=== PATIENT | male | born 1955 | race Caucasian/White ===

== ENCOUNTER 2017-01-31 16:20 | Inpatient (IN) | payer MEDICARE, BC ==
[~2017-01-31] VITALS: Ht 175.3 cm; Wt 86.4 kg
--- NOTE | ~2017-01-31 | EC ---
PATIENT:GABE LOWE DATE OF SERVICE: 02/03/17 SEX: M MEDICAL RECORD: [id number] DATE OF : [birth year] LOCATION:[facility] AGE OF PATIENT: 61 ADMISSION DATE: 01/31/17 REFERRING PHYSICIAN: INTERPRETING PHYSICIAN: AHSAN FREEMAN MD ECHOCARDIOGRAM REPORT ECHO CHARGES 4 ECHO COMPLETE CLINICAL DIAGNOSIS: PTE ECHOCARDIOGRAPHIC MEASUREMENTS (adult normal given) AC root (d.<3.7cm) 2.6 LV Septum d (<1.2 cm> 1.2 Valve Excursion 1.6 LV Septum (systole) 1.5 Left Atria (s.<4.0cm> 3.5 LVPW d(<1.2cm) 1.2 RV (d.<2.3cm) 2.7 LVPW (sytole) 1.6 LV diastole(<5.6CM) 4.8 MV E-F(>70mm/sec) LV systole 3.5 LVOT Diameter 2.1 MV exc.(>10mm) Est.ejection fraction (50-75%) Pericardial Effusion N DOPPLER: LVIT A 82.0 E 63.0 LA RVSP 43.2 LVOT 80.0 AOP1/2T Asc. Ao 103 RVOT 64.0 RA PA 84.0 AV Gradient Peak 4.3 AV Mean 2.2 AV Area 2.9 MV Gradient Peak 2.2 MV Mean 0.89 MV Area COMMENTS: Microbiology Director: Alvin VENTURA DUVALL Market Development Manager:1 Dr. Freeman TAPE# PACS TWO-DIMENSIONAL ECHOCARDIOGRAM WITH DOPPLER 1. Left ventricular chamber size is within normal limits. Left ventricular systolic function is normal. Overall ejection fraction is estimated at 50 percent. 2. Left atrium, right atrium, and right ventricular chamber sizes are within normal limits. 3. Valvular structures have normal structure and motion. 4. Doppler interrogation reveals mild aortic insufficiency; no other valvular insufficiency or stenosis. Pulmonary artery systolic pressure is, however, mildly elevated estimated at 43 millimeters of mercury. ECHOCARDIOGRAM REPORT [id number] GABE LOWE 5. No evidence of pericardial effusion or left ventricular thrombus. AHSAN FREEMAN MD CC: [id number] DICTATION DATE: 02/03/17 1400 HR DIRECTOR: DM 02/04/17 1115 ADM IN [place] [id number] [place] [address]
[2017-01-31 16:56] LABS: BASOPHILS 0.5 % (0-2); HEMATOCRIT 45.4 % (42.0-54.0); HEMOGLOBIN 15.1 g/dL (13.5-17.5); IMMATURE GRANULOCYTES 0.2 % (0-5); LYMPHOCYTES 22.7 % (15-50); MCHC 33.3 g/dL (31.0-37.0); MCV 90.3 fL (80.0-100.0); MEAN PLATELET VOLUME 11.3 fL (7.4-10.4); MONOCYTES 9.9 % (2-11); NEUTROPHILS 63.7 % (40-80); PLATELET COUNT 207 10x3/uL (130-400); RBC 5.03 10x6/uL (4.20-6.10); RDW 13.7 % (11.5-14.5)
[2017-01-31 17:19] LABS: ALBUMIN 3.5 g/dL (3.4-5.0); ANION GAP 15.8 mmol/L (8-16); BILIRUBIN - TOTAL 1.05 mg/dL (0.2-1.3); CALCIUM 9.5 mg/dL (8.5-10.1); CARBON DIOXIDE 25.1 mmol/L (21.0-32.0); CREATININE - SERUM 1.8 mg/dL (0.6-1.3); POTASSIUM - SERUM 3.9 mmol/L (3.5-5.1); PROTEIN - SERUM 7.9 g/dL (6.4-8.2)
[2017-01-31 18:16] LABS: COLOR YELLOW (YELLOW)
[2017-01-31 18:17] LABS: APPEARANCE CLEAR (CLEAR); BILIRUBIN NEGATIVE (NEGATIVE); GLUCOSE NEGATIVE (NEGATIVE); KETONE NEGATIVE (NEGATIVE); LEUKOCYTE ESTERASE NEGATIVE (NEGATIVE); NITRITE NEGATIVE (NEGATIVE); PROTEIN 1+ mg/dL (NEGATIVE); UROBILINOGEN NORMAL (NORMAL)
--- NOTE | 2017-01-31 21:15 | NUR ---
RECIEVED PT FROM ER VIA BED, ASSESSMENT, HISTORY AND MED REC COMPLETED, NO ACUTE DISTRESS NOTED, BRACE IN PLACE TO RLE, SPLINT WITH MICHAEL WRAP TO LUE, KENZIEE HAS KERLIX DSG IN PLACE, ORIENTED TO ROOM AND CALL LIGHT, SR'S UP X2, WILL MONITOR
[2017-01-31] MEDS ORDERED: HYDROCODON-ACE1 EAC7 PO (22:17)
[2017-01-31] MEDS ORDERED: LOTREL 5-40 MG1 EACH PO (22:18)
[2017-01-31] MEDS ORDERED: TIMOPTIC 0.5 % O5 ML EACH EYE (22:18)
[2017-01-31] MEDS ORDERED: PREVACID30 MG PO (22:19)
[2017-01-31] MEDS ORDERED: IBUPROFEN200 MG PO (22:20)
--- NOTE | 2017-01-31 22:23 | NUR ---
PRN MORPHINE GIVEN FOR C/O PAIN, GAMA WELL, DENIES OTHER NEEDS, FALL PRECAUTIONS IN PLACE, CL IN REACH
--- NOTE | 2017-01-31 23:25 | NUR ---
RESTING WITH EYES CLOSED, NO DISTRESS NOTED, SR'S UP, CL IN REACH
[2017-01-31 23:36] VITALS: BP 132/95; Ht 175.3 cm; Wt 86.4 kg
[2017-02-01] VITALS (7 sets, daily range): BP systolic 108–132; BP diastolic 73–79
--- NOTE | 2017-02-01 10:31 | NUR ---
Rehab Note- Acute Rehab Prescreen order received. Reviewed chart- no H&P noted at this time. The patient is a new admit through the ER. Physical therapy ordered- will await PT Eval. Will follow the patient at this time. Thank you for this referral! Cristiana Mcgovern RN Clinical Liaison, [facility] Rehab
--- NOTE | 2017-02-01 19:20 | NUR ---
RESTING WITH EYES CLOSED, EASILY AROUSED, ASSESSMENT COMPLETED, HOB ELEVATED, NC IN PLACE, SOB WHEN TALKING, NO ACUTE DISTRESS NOTED, SR'S UP, CL IN REACH, WILL MONITOR
--- NOTE | 2017-02-01 20:48 | NUR ---
LAB RESULTS RECIEVED, ELEVATED D DIMER OF GREATER THAN 20, DR RHODES PAGED, AWAITING RETURN CALL
--- NOTE | 2017-02-01 20:57 | NUR ---
ORDERS RECIEVED FOR CTA OF CHEST PE PROTOCOL, RADIOLOGY CONTACTED
--- NOTE | 2017-02-01 21:05 | NUR ---
DR RHODES CONTACTED ABOUT PT STATED IVP DYE ALLERGY, ORDERS RECIEVED TO VQ SCAN, RADIOLOGY CONTACTED
--- NOTE | 2017-02-01 22:38 | NUR ---
PT RETURNED FROM VQ SCAN, NO DISTRESS NOTED, FALL PRECAUTIONS IN PLACE, WILL CONTINUE TO MONITOR
--- NOTE | 2017-02-02 00:35 | NUR ---
VQ SCAN RESULTS RECIEVED, DR CARMELO KELSEY
--- NOTE | 2017-02-02 00:52 | NUR ---
ANSWERING SERVICE CONTACTED TO PAGE DR RHODES, THEY STATED, "WE ARE STILL TRYING TO GET IT DELIVERED"
--- NOTE | 2017-02-02 01:12 | NUR ---
ORDERS RECIEVED FOR LOVENOX 1MG/KG Q12
--- NOTE | 2017-02-02 01:27 | NUR ---
LOVENOX ADMINISTERED PER ORDERS, GAMA WELL
[2017-02-02 03:54] VITALS: BP 125/82
[2017-02-02 06:46] LABS: BASOPHILS 0.3 % (0-2); EOSINOPHILS 0.8 % (0-7); HEMATOCRIT 39.5 % (42.0-54.0); HEMOGLOBIN 12.8 g/dL (13.5-17.5); IMMATURE GRANULOCYTES 0.4 % (0-5); LYMPHOCYTES 11.2 % (15-50); MCH 29.4 pg (26.0-34.0); MCHC 32.4 g/dL (31.0-37.0); MCV 90.8 fL (80.0-100.0); MEAN PLATELET VOLUME 10.6 fL (7.4-10.4); MONOCYTES 10.9 % (2-11); NEUTROPHILS 76.4 % (40-80); RBC 4.35 10x6/uL (4.20-6.10); RDW 13.5 % (11.5-14.5)
[2017-02-02 06:47] LABS: PLATELET COUNT 126 10x3/uL (130-400)
[2017-02-02 07:12] LABS: BILIRUBIN - TOTAL 1.69 mg/dL (0.2-1.3); CALCIUM 8.7 mg/dL (8.5-10.1); CARBON DIOXIDE 22.2 mmol/L (21.0-32.0); CREATININE - SERUM 1.5 mg/dL (0.6-1.3); PROTEIN - SERUM 6.6 g/dL (6.4-8.2)
[2017-02-02 07:19] LABS: ALBUMIN 2.6 g/dL (3.4-5.0); ANION GAP 15.8 mmol/L (8-16)
--- NOTE | 2017-02-02 07:35 | NUR ---
AWAKE AND ALERT. OXYGEN ON 6L VIA OXYMIZER. ASSESSMENT PERFORMED PER FLOWSHEET. PT IS SHORT OF BREATH. PT FOLLOWING BEDREST GUIDELINES. URINAL EMPTIED. CALL LIGHT IN REACH, WILL CONTINUE WITH PLAN OF CARE.
--- NOTE | 2017-02-02 08:20 | NUR ---
PRN FLEXERIL ADMINISTERED FOR MUSCLE SPASMS AT THIS TIME. BED LINENS CHANGED DUE TO URINAL SPILLING ON SHEETS. PT TOLERATED WITH MODERATE AMOUNT OF PAIN. ASSISTED PT WITH MEAL SET UP. CALL LIGHT IN REACH, WILL CONTINUE WITH PLAN OF CARE.
[2017-02-02 08:59] VITALS: BP 127/87
--- NOTE | 2017-02-02 09:30 | NUR ---
SLEEPING AT THIS TIME WITH RESPIRATIONS SHALLOW, BUT NON LABORED. OXYGEN ON 6L VIA OXYMIZER. CALL LIGHT IN REACH, WILL CONTINUE WITH PLAN OF CARE.
[2017-02-02 13:24] VITALS: BP 99/72
[2017-02-02 15:34] VITALS: BP 111/75
--- NOTE | 2017-02-02 19:30 | NUR ---
RECIEVED SHIFT REPORT. PT IS LYING IN BED. ALERT AND ORIENTED AND ABLE TO VERBALIZE NEEDS. IV IS PATENT AND SALINE LOC AT THIS TIME. PT REQUIRES SOME ASSISTANCE TURNING IN BED FOR COMFORT AND SKIN CARE. O2 @ 6 PER OXIMIZER. IMMOBILIZER TO RIGHT LEG. MICHAEL WRAP NOTED TO RIGHT ARM. PT STATES PAIN IS 2/10. NO NEEDS ARE VERBALIZED AT THIS TIME. WILL CONTINUE TO MONITOR. SIDE RAILS ARE UP X 2. BED IS IN LOWEST POSITION. BOX ALARM IS ON FOR SAFETY. CALL LIGHT IS WITHIN REACH.
[2017-02-02 20:00] VITALS: BP 130/86
--- NOTE | 2017-02-02 20:37 | NUR ---
SHIFT ASSESSMENT COMPLETED. NIGHT MEDS GIVEN WITH NO PROBLEMS. NO NEEDS ARE VOICED. WILL MONITOR. SIDE RAILS X 2. BED LOW. BOX ALARM ON. CALL LIGHT IN REACH.
[2017-02-03] VITALS (8 sets, daily range): BP systolic 87–122; BP diastolic 58–80
[2017-02-03 05:49] LABS: BASOPHILS 0.3 % (0-2); EOSINOPHILS 1.2 % (0-7); HEMATOCRIT 38.2 % (42.0-54.0); HEMOGLOBIN 12.6 g/dL (13.5-17.5); IMMATURE GRANULOCYTES 0.4 % (0-5); LYMPHOCYTES 7.3 % (15-50); MCH 29.5 pg (26.0-34.0); MCV 89.5 fL (80.0-100.0); MEAN PLATELET VOLUME 10.7 fL (7.4-10.4); MONOCYTES 11.6 % (2-11); NEUTROPHILS 79.2 % (40-80); PLATELET COUNT 135 10x3/uL (130-400); RBC 4.27 10x6/uL (4.20-6.10); RDW 13.1 % (11.5-14.5); WBC 11.3 10x3/uL (4.8-10.8)
[2017-02-03 06:08] LABS: ALBUMIN 2.3 g/dL (3.4-5.0); ANION GAP 18.2 mmol/L (8-16); BILIRUBIN - TOTAL 1.7 mg/dL (0.2-1.3); CALCIUM 8.4 mg/dL (8.5-10.1); CARBON DIOXIDE 24.9 mmol/L (21.0-32.0); CREATININE - SERUM 1.6 mg/dL (0.6-1.3); MAGNESIUM - SERUM 1.9 mg/dL (1.8-2.4); PHOSPHOROUS 3.1 mg/dL (2.5-4.9); POTASSIUM - SERUM 5.1 mmol/L (3.5-5.1); PROTEIN - SERUM 6.5 g/dL (6.4-8.2)
--- NOTE | 2017-02-03 07:40 | NUR ---
PT AOX4 RESP EVEN AND NONLABORED PT DENIES NEEDS AT THIS TIME IV TO RIGHT AC PATENT AND INACT AT THIS TIME SRX2 BED AT LOWEST SETTING CALL LIGHT WITHIN REACH WILL CONTINUE TO MONITOR
--- NOTE | 2017-02-03 11:03 | NUR ---
Patient Name: GABE LOWE Admission Status: ER Accout number: [id number] Admission Date: 01-31-2017 : 1955 Admission Diagnosis: Attending: FRANCESCO Current LOS: 3 Anticipated DC Date: 02-06-2017 Planned Disposition: Senior Care Facility Primary Insurance: MEDICARE PART A ONLY Discharge Planning Comments: CM MET WITH PATIENT REGARDING D/C NEEDS AND PLANS. PATIENT STATED HE LIVES ALONE AND HAS 2 STEPS W/O RAILS TO ENTER HOME AND NO STAIRS INSIDE. PATIENT IS INDEPENDENT WITH HIS CARE AND HAS NO DME AT HOME. PATIENT STATED HIS PCP IS DR. HAMPTON AND PHARMACY IS [facility] ON [address]. PATIENT SIGNED THE [facility] FORM WITH [facility]. CM WILL CONTINUE TOF FOLLOW PATIENT WITH D/C NEEDS AND PLANS. PCP DR. MEMO [facility] [address]- [phone] DR. JAMARI GUERRERO (LIKE A BROTHER BEST FRIEND) [phone] General Teller: Shima Nice Is the patient Alert and Oriented? Yes 0 * How many steps to enter\exit or inside your home? 2 0 * PCP DR. HAMPTON 0 * Pharmacy [facility] [address] 0 * Preadmission Environment Home Alone 0 * ADLs Independent 0 * Equipment None 0 * List name and contact numbers for known caregivers / representatives who currently or will assist patient after discharge: DR. JAMARI GUERRERO (LIKE A BROTHER) [phone] * Community resources currently utilized None 0 * Additional services required to return to the preadmission environment? Yes 0 * Can the patient safely return to the preadmission environment? Yes 0 * Has this patient been hospitalized within the prior 30 days at any hospital? No 0 Grand Total: 0
--- NOTE | 2017-02-03 11:03 | NUR ---
Is the patient Alert and Oriented? Yes 0 * How many steps to enter\exit or inside your home? 2 0 * PCP ROXANNE 0 * Pharmacy [facility] ON [address] 0 * Preadmission Environment Home with Family 0 * ADLs Independent 0 * Equipment Bedside Commode Glucometer 0 * List name and contact numbers for known caregivers / representatives who currently or will assist patient after discharge: MYRTLE (SPOUSE) [phone] OR [phone] * Community resources currently utilized None 0 * Additional services required to return to the preadmission environment? Yes 0 * Can the patient safely return to the preadmission environment? Yes 0 * Has this patient been hospitalized within the prior 30 days at any hospital? No 0 Grand Total: 0
--- NOTE | 2017-02-03 14:02 | NUR ---
OT NOTE: PT REMAINS ON MEDIAL HOLD UNTIL CLEARANCE FROM FIXED INCOME MANAGER
--- NOTE | 2017-02-03 15:38 | NUR ---
Rehab Note- Continue to follow the patient at this time. Awaiting Physical therapy eval, they are awaiting clearance for eval when medically stable. Thank you for this referral! Cristiana Mcgovern RN Clinical Liaison, [facility] Rehab
--- NOTE | 2017-02-03 21:22 | NUR ---
PATIENT VERBALIZING CHEST PAIN, PATIENT STATED "MY PAIN IS ON MY HEART IT FEELS LIKE A CRIPPING ON MY HEART." CALLED AALIYAH NURSE PRACTIONER. PUT IN ORDERS ORDERED.
--- NOTE | 2017-02-03 21:55 | NUR ---
PATIENT IS LAYING WITH EYES CLOSED, CALMLY. FRIEND IS AT BEDSIDE. NO SIGNS OF DISTRESS NOTED. OXYGEN SATURATION 89% ON 6L/MIN OXYMIZER, TURNED UP OXYGEN TO 7L/MIN. WILL CONTINUE TO MONITOR.
[2017-02-03 22:25] LABS: CKMB 0.6 U/L (0.0-3.6); CREATINE KINASE 108 UL (21-232)
[2017-02-03 22:28] LABS: TROPONIN-I 0.154 ng/mL (0.000-0.060)
--- NOTE | 2017-02-03 22:43 | NUR ---
SPOKE WITH , NOTIFIED HIM OF TROPONIN LEVEL. SEE ORDERS. NOTIFIED HIM OF BP, HE STATED GIVE HIM NS AT 125ML/HR.
--- NOTE | 2017-02-03 23:53 | NUR ---
PATIENT STATED HE IS FEELING A LOT BETTER. HE SAID HE IS GOING TO TRY TO GET SOME REST.
[2017-02-04 03:10] VITALS: BP 94/58
[2017-02-04 06:35] LABS: BASOPHILS 0.4 % (0-2); EOSINOPHILS 2.6 % (0-7); HEMATOCRIT 36.3 % (42.0-54.0); HEMOGLOBIN 11.8 g/dL (13.5-17.5); IMMATURE GRANULOCYTES 0.8 % (0-5); LYMPHOCYTES 11.2 % (15-50); MCH 29.3 pg (26.0-34.0); MCHC 32.5 g/dL (31.0-37.0); MCV 90.1 fL (80.0-100.0); MEAN PLATELET VOLUME 10.6 fL (7.4-10.4); MONOCYTES 12.7 % (2-11); NEUTROPHILS 72.3 % (40-80); PLATELET COUNT 146 10x3/uL (130-400); RBC 4.03 10x6/uL (4.20-6.10); RDW 13.3 % (11.5-14.5)
[2017-02-04 06:36] LABS: WBC 7.2 10x3/uL (4.8-10.8)
[2017-02-04 06:45] LABS: ALBUMIN 2.1 g/dL (3.4-5.0); ANION GAP 13.3 mmol/L (8-16); BILIRUBIN - TOTAL 1.03 mg/dL (0.2-1.3); CALCIUM 8.3 mg/dL (8.5-10.1); CARBON DIOXIDE 25.7 mmol/L (21.0-32.0); CREATININE - SERUM 2.2 mg/dL (0.6-1.3); PROTEIN - SERUM 6.2 g/dL (6.4-8.2)
--- NOTE | 2017-02-04 07:35 | NUR ---
PT AOX4 RESP EVEN AND NONLABORED IV TO RIGHT AC PATENT AND INTACT AT THIS TIME PT DENIES NEEDS AT THIS TIME. SRX2 BED AT LOWEST SETTING CALL LIGHT WITHIN REACH WILL CONTINUE TO MONITOR
[2017-02-04 09:05] VITALS: BP 95/59
[2017-02-04 11:37] VITALS: BP 110/62
--- NOTE | 2017-02-04 15:33 | NUR ---
Rehab Note- Continue to await Physical therapy eval. Cristiana Mcgovern RN Clinical Liaison, [facility] Rehab
--- NOTE | 2017-02-04 17:23 | NUR ---
OT NOTE: PT COMPLETED BED MOB WITH MAX A. PT COMPLETED STATIC SITTING BALANCE WITH SPV. PT COMPLETED HYGIENE AND GROOMING WITH MAX A AT EOB. THANK YOU, TYSON RAMOS
--- NOTE | 2017-02-04 19:39 | NUR ---
PATIENT IS IN BED, HOB 30 DEGREES. RESPIRATIONS ARE SHALLOW AND RAPID. PATIENT IS RECEIVING OXYGEN VIA OXYMIZER AT 7L/MIN. PATIENT ASKED FOR HIS PHONE, HANDED HIM HIS PHONE. PATIENT PUSHED CALL LIGHT AND ASKED TO PUT THE PHONE UP. PUT THE PHONE BACK ON THE NIGHT STAND. PATIENT REQUESTED ASSISTANCE USING THE URINAL, ASSISTED PATIENT, HE VOIDED 250ML. EMPTIED URINAL. PATIENT STATED HE FEELS THE URGE TO HAVE A BOWEL MOVEMENT BUT THINKS IT IS A 'FALSE ALARM' PATIENT STATED HE HAS ALREADY BEEN ON THE BEDPAN SEVERAL TIMES TONIGHT AND NOT HAD A BM. ASKED PATIENT IF HE WANTS TO GET ON THE BEDPAN NOW, HE SAID NO MAYBE LATER. TOLD PATIENT TO USE THE CALL LIGHT WHEN HE IS READY. PATIENT VERBALIZED UNDERSTANDING AND DENIES NEEDS. CALL LIGHT IN REACH.
[2017-02-04 20:00] VITALS: BP 133/88
[2017-02-05] VITALS: BP 122/78
--- NOTE | 2017-02-05 01:39 | NUR ---
PATIENT IS RESTING QUIETLY WITH EYES CLOSED NO SIGNS OF DISTRESS NOTED. APPLIED CONTINUOUS PULSE OXYMETER. OXYGEN SATURATION 96% ON 7L/MIN/OXYMIZER. TURNED DOWN OXYGEN TO 5L, WILL CONTINUE TO MONITOR.
[2017-02-05 04:00] VITALS: BP 130/84
[2017-02-05 05:16] LABS: BASOPHILS 0.3 % (0-2); EOSINOPHILS 2.9 % (0-7); HEMATOCRIT 34.3 % (42.0-54.0); HEMOGLOBIN 11.3 g/dL (13.5-17.5); IMMATURE GRANULOCYTES 0.3 % (0-5); LYMPHOCYTES 13.5 % (15-50); MCH 29.5 pg (26.0-34.0); MCHC 32.9 g/dL (31.0-37.0); MCV 89.6 fL (80.0-100.0); MEAN PLATELET VOLUME 10.3 fL (7.4-10.4); PLATELET COUNT 183 10x3/uL (130-400); RBC 3.83 10x6/uL (4.20-6.10); RDW 13.3 % (11.5-14.5); WBC 6.6 10x3/uL (4.8-10.8)
[2017-02-05 05:46] LABS: ANION GAP 14.2 mmol/L (8-16); BILIRUBIN - TOTAL 1.05 mg/dL (0.2-1.3); CARBON DIOXIDE 21.6 mmol/L (21.0-32.0); CREATININE - SERUM 1.9 mg/dL (0.6-1.3); POTASSIUM - SERUM 4.8 mmol/L (3.5-5.1); PROTEIN - SERUM 6.2 g/dL (6.4-8.2)
--- NOTE | 2017-02-05 07:30 | NUR ---
PT AOX4 RESP EVEN AND NONLABORED PT DENIES NEEDS AT THIS TIME IV TO RIGHT FOREARM PATENT AND INTACT AT THIS TIME SRX2 BED AT LOWEST SETTING CALL LIGHT WITHIN REACH WILL CONTINUE TO MONITOR
[2017-02-05 08:10] VITALS: BP 128/62
[2017-02-05 10:21] LABS: ANTITHROMBIN III ACTIVITY 98 % (75-135)
[2017-02-05 11:18] LABS: PROTEIN S - FREE 127 % (57-157); PROTEIN S - FUNCTIONAL 116 % (63-140); PROTEIN S - TOTAL 134 % (60-150)
[2017-02-05] MEDS ORDERED: CYCLOBENZAPRINE10 MG PO (11:39)
[2017-02-05] MEDS ORDERED: Levaquin PO (11:39)
[2017-02-05] MEDS ORDERED: KLONOPIN0.5 MG PO (11:40)
[2017-02-05] MEDS ORDERED: RESTORIL15 MG PO (11:40)
[2017-02-05] MEDS ORDERED: LOVENOX INJ100 MG/ML SC (11:40)
[2017-02-05] MEDS ORDERED: IPRAT-ALBUT 0.5-3 ML UPD (11:40)
[2017-02-05] MEDS ORDERED: FLORAJEN3 CAPS460 MG PO (11:41)
[2017-02-05] MEDS ORDERED: FLUTICASONE PRO16 GM NASAL (11:41)
[2017-02-05] MEDS ORDERED: PROTONIX40 MG PO (11:41)
[2017-02-05] MEDS ORDERED: COLACE100 MG PO (11:41)
[2017-02-05] MEDS ORDERED: MIRALAX17 GM PO (11:41)
[2017-02-05 12:51] VITALS: BP 119/85
[2017-02-05 13:17] LABS: ACLA - IGG AB <9 GPL U/mL (0-14); ACLA - IGM AB <9 MPL U/mL (0-12)
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
[2017-02-05 16:30] VITALS: BP 101/64
--- NOTE | 2017-02-05 18:52 | NUR ---
IV DISCONTINUED WITH CATHETER INTACT AT THIS TIME DISCHARGE INSTRUCTIONS AND PAPERWORK GIVEN TO PT AND TAKEN VIA BED AT THIS TIME
[2017-02-06 08:20] LABS: HEXAGONAL PHASE PHOS 4 sec (0-11); LUPUS - INTERPRETATION Comment: (()); LUPUS - THROMBIN TIME 14.8 sec (0.0-23.0); LUPUS - dRVVT 68.5 sec (0.0-47.0); LUPUS - dRVVT CONFIRMATION 1.3 ratio (0.8-1.2); PTT-LA 54.5 sec (0.0-51.9); PTT-LA MIX 55.4 sec (0.0-48.9)
== END 2017-02-05 18:53 | DRG 175 ==
LOC: D.ER 16:20 → D.MS 19:32
PROVIDERS: Emergency Medicine; Internal Medicine Pulmonary Disease; ADMIT Emergency Medicine
DX: I26.99 Other pulmonary embolism without acute cor pulmonale (principal); J96.01 Acute respiratory failure with hypoxia; R53.2 Functional quadriplegia; J18.1 Lobar pneumonia, unspecified organism; I82.411 Acute embolism and thrombosis of right femoral vein; I82.441 Acute embolism and thrombosis of right tibial vein; N17.9 Acute kidney failure, unspecified; D69.6 Thrombocytopenia, unspecified; F41.9 Anxiety disorder, unspecified; Z88.8 Allergy status to other drugs, medicaments and biological substances; K21.9 Gastro-esophageal reflux disease without esophagitis; I12.9 Hypertensive chronic kidney disease with stage 1 through stage 4 chronic kidney disease, or unspecified chronic kidney disease; N18.9 Chronic kidney disease, unspecified; R00.0 Tachycardia, unspecified; I95.89 Other hypotension; E86.0 Dehydration; S62.92XD Unspecified fracture of left hand, subsequent encounter for fracture with routine healing; V89.2XXD Person injured in unspecified motor-vehicle accident, traffic, subsequent encounter; S89.91XD Unspecified injury of right lower leg, subsequent encounter

== ENCOUNTER 2017-02-05 19:21 | Inpatient (IN) | payer MEDICARE, BC ==
[~2017-02-05] VITALS: Ht 175.3 cm; Wt 86.2 kg
[~2017-02-05 19:21] MED LIST: COLACE100 MG PO; CYCLOBENZAPRINE10 MG PO; FLORAJEN3 CAPS460 MG PO; FLUTICASONE PRO16 GM NASAL; HYDROCODON-ACE1 EAC7 PO; IBUPROFEN200 MG PO; IPRAT-ALBUT 0.5-3 ML UPD; KLONOPIN0.5 MG PO; LOTREL 5-40 MG1 EACH PO; LOVENOX INJ100 MG/ML SC; Levaquin PO; MIRALAX17 GM PO; PREVACID30 MG PO; PROTONIX40 MG PO; RESTORIL15 MG PO; TIMOPTIC 0.5 % O5 ML EACH EYE
--- NOTE | 2017-02-05 20:09 | NUR ---
LYING IN BED WITH EYES OPEN AND TV ON. COMPLAINS OF STUFFY NOSE AND REQUEST O2 SAT BE TAKEN AGAIN. O2 SAT 86%. RESPIRATORY NOTIFIED AND O2SAT UP TO 91% AFTER BLOWING HIS NOSE. BRIGHT RED BLOOD IN TISSUE FROM LEFT NOSTRIL. ASKED HIM TO NOT BLOW HIS NOSE AGAIN DUE TO THE BLEEDING. RESP. THERAPIST ASSESSED WITH NO NEW FINDINGS.
[2017-02-05 23:02] VITALS: BP 113/75
--- NOTE | 2017-02-06 00:38 | NUR ---
RESTING IN BED WITH EYEWS CLOSED. NO SIGNS OR SYMPTOMS OF DISTRESS OBSERVED. CALL LIGHT AND OVERBED TABLE IN REACH.
--- NOTE | 2017-02-06 04:43 | NUR ---
RESTING IN BED WITH EYES CLOSED. NO SIGNS OR SYMPTOMS OF DISTRESS OBSERVED. O2@ 6 L[address]ERS PER NASAL CANNUL IN PLACE. RESPIRATIONS EVEN AND UNLABORED. O2 SAT 91%.CALL LIGHT AND OVERBED TABLE IN REACH.
[2017-02-06 05:28] LABS: BASOPHILS 0.4 % (0-2); EOSINOPHILS 3.8 % (0-7); HEMATOCRIT 33.1 % (42.0-54.0); HEMOGLOBIN 10.8 g/dL (13.5-17.5); IMMATURE GRANULOCYTES 0.6 % (0-5); LYMPHOCYTES 14.3 % (15-50); MCH 29.2 pg (26.0-34.0); MCHC 32.6 g/dL (31.0-37.0); MCV 89.5 fL (80.0-100.0); MEAN PLATELET VOLUME 9.9 fL (7.4-10.4); MONOCYTES 10.6 % (2-11); NEUTROPHILS 70.3 % (40-80); PLATELET COUNT 209 10x3/uL (130-400); RDW 13.5 % (11.5-14.5); WBC 7.1 10x3/uL (4.8-10.8)
[2017-02-06 05:37] LABS: CALCIUM 8.4 mg/dL (8.5-10.1); CARBON DIOXIDE 22.7 mmol/L (21.0-32.0); CREATININE - SERUM 1.7 mg/dL (0.6-1.3); POTASSIUM - SERUM 4.7 mmol/L (3.5-5.1)
--- NOTE | 2017-02-06 06:23 | NUR ---
WHEN ENTERING ROOM PT WAS HOLDING HIS CHEST AND APPEARED TO BE SHORT OF BREATH. STATED IT JUST STARTED WHEN I TURNED MYSELF. STATED PAIN FELT LIKE PRESSURE AND HURT SEVERLY. RESP. HERE ON THE FLOOR AND ASKED TO ASSESS BREATHING. O2 SAT 86% ON 6 LITERS. VITAL SIGNS TAKEN AND B/P 128/83, HEART RATE BOUNDING AT 101BPM,RESP.32. UPDRAFT GIVEN PER RESP. AND O2 SAT UP TO 91%. LABS AND EKG ORDERED TO RULE OUT PR. HX. OF MUSCLE SPASMS AND ANXIETY. STATED "MY MUSCLE SPASMS ARE USUALLY IN MY BACK AREA ON THE LEFT SIDE. FLEXERAL GIVE AND STATED SOME RELIEF. AWAITING LAB RESULTS. WILL REPORT TO ONCOMMING SHIFT.
--- NOTE | 2017-02-06 06:35 | NUR ---
PT C/O OF CHEST PAIN, RATING THE PAIN A 10, PT STATED HE WAS SOB AND WAS SWEATING. INITIATED EKG AND CARDIAC ENZYMES.
--- NOTE | 2017-02-06 07:19 | NUR ---
SITTING UP IN BED C/O CHEST PAIN R/T SPASMS. BLOOD WORK AND EKG HAVE BEEN DONE. VITALS STABLE. CALL LIGHT IN REACH
[2017-02-06 07:31] LABS: CKMB 2.6 U/L (0.0-3.6); CREATINE KINASE 78 UL (21-232); TROPONIN-I 0.027 ng/mL (0.000-0.060)
[2017-02-06 08:45] VITALS: BP 107/74
--- NOTE | 2017-02-06 09:51 | NUR ---
SITTING UP IN BED VISTING FRIENDS. DENIES ANY CONCERNS AT THIS TIME. WILL CONTINUE TO MONITOR CALL LIGHT IN REACH
[2017-02-06 10:12] VITALS: Ht 175.3 cm; Wt 86.2 kg
[2017-02-06 13:15] LABS: CKMB 2.9 U/L (0.0-3.6); CREATINE KINASE 96 UL (21-232)
--- NOTE | 2017-02-06 13:57 | NUR ---
SITTING UP IN WHEELCHAIR C/O OF NAUSEA AND R/T PAIN AND DISCOMFORT PT REQUEST SOMETHING FOR PAIN. ADMINISTERED 600MG MOTRIN. WILL CONTINUE TO MONITOR. CALL LIGHT IN REACH
--- NOTE | 2017-02-06 17:19 | NUR ---
PT RESTING IN BED, WAITING FOR DINNER, DENIES NEEDS. BED LOW. CL IN REACH.
[2017-02-06 18:09] VITALS: BP 108/69
--- NOTE | 2017-02-06 18:11 | NUR ---
SITTING UP IN BED VISITING WITH FRIENDS. CALL LIGHT IN REACH
--- NOTE | 2017-02-06 19:50 | NUR ---
PT. IN BED WITH HOB AND FOB ELEVATED FOR COMFORT. LUE ELEVATED ALSO UP ON PILLOW. PT. ABLE TO MOVE LEFT HAND FINGERS. ASSESSMENT COMPLETED. CALL LIGHT WITHIN REACH. LEFT PT. WITH HIS VISITORS.
[2017-02-06 20:08] LABS: CKMB 2.7 U/L (0.0-3.6); CREATINE KINASE 87 UL (21-232); TROPONIN-I < 0.017 ng/mL (0.000-0.060)
--- NOTE | 2017-02-06 23:16 | NUR ---
PT. IN BED WITH HOB UP FOR COMFORT. RLE ELEVATED UP ON 2 PILLOWS PREVIOUSLY REQUESTED AND HIS LUE IS ELEVATED UPON PILLOW. EYES CLOSED AND RESP. EVEN WITH O2 ON AT 6L/MIN VIA N/C WITHOUT ANY S/S DISTRESS. CALL LIGHT WITHIN REACH.
--- NOTE | 2017-02-07 03:13 | NUR ---
PT. IN BED WITH HOB UP FOR COMFORT WITH EYES CLOSED AND RESP. EVEN. RLE REMAINS ELEVATED UP ON 2 PILLOWS AND LUE ELEVATED UP ON 1 PILLOW. O2 ON AT 6L/MIN VIA N/C WITHOUT ANY S/S DISTRESS OBSERVED. CALL LIGHT REMAINS WITHIN REACH.
[2017-02-07 05:59] LABS: BASOPHILS 0.3 % (0-2); EOSINOPHILS 4.8 % (0-7); HEMATOCRIT 33.6 % (42.0-54.0); HEMOGLOBIN 11.1 g/dL (13.5-17.5); IMMATURE GRANULOCYTES 1.6 % (0-5); LYMPHOCYTES 12.5 % (15-50); MCH 29.4 pg (26.0-34.0); MCV 88.9 fL (80.0-100.0); MEAN PLATELET VOLUME 10.3 fL (7.4-10.4); MONOCYTES 8.8 % (2-11); RBC 3.78 10x6/uL (4.20-6.10); RDW 13.7 % (11.5-14.5)
[2017-02-07 06:03] LABS: PLATELET COUNT 255 10x3/uL (130-400); WBC 9.6 10x3/uL (4.8-10.8)
[2017-02-07 06:13] LABS: ANION GAP 14.3 mmol/L (8-16); CALCIUM 8.6 mg/dL (8.5-10.1); CARBON DIOXIDE 23.9 mmol/L (21.0-32.0); CREATININE - SERUM 1.7 mg/dL (0.6-1.3); POTASSIUM - SERUM 4.2 mmol/L (3.5-5.1)
--- NOTE | 2017-02-07 08:00 | NUR ---
ELLIE ASST TO SIT UP IN BED. IMMEDIATELY STARTED WANTING THINGS HANDED TO HIM, THINGS REARRANGED AND HIM TELLING STAFF HE WAS SOB DUE TO DEHYDRATION. BREAKFAST TRAY SET UP FOR PT BUT HE REFUSED TO EAT. HE WAS C/O LEFT SIDE AND CHEST PAIN. EKG DONE WHICH SHOWED TACKYCARDIA AT 116. HE STILL HAS OXYGEN ON AT 6L NC. DSG TO RUE IMMOBILIZER TO RLE.
[2017-02-07 08:05] VITALS: BP 121/73
--- NOTE | 2017-02-07 09:16 | NUR ---
Assessed pt no treatment at this time
--- NOTE | 2017-02-07 14:41 | NUR ---
Nutrition Follow Up: Pt reported that he has no appetite at all. He said that he has been in pain and therefore does not want to eat. He stated that when he does eat he feels full like "I am going to have a heart attack." Pt said that he is drinking Ensure at each meal. RD encouraged pt to increase po intake; informed pt that it is okay to write preferences on menu, etc. Pt is eating 33% meal avg on a regular diet. He is receiving Ensure TID. Wt stable. No BM since admit. Labs reviewed. Meds noted. Rec continue current diet, supplement regimen. Will continue to provide selective menus and honor food preferences. RD following.
--- NOTE | 2017-02-07 16:43 | NUR ---
PT HAD PERSONAL MEDS IN HIS ROOM THAT FRIENDS BROUGHT IN. HE WAS TAKING MEDS FROM HIS OWN PERSONAL STASH TODAY. HYDROCODONE X15, (FROM 2016) AND HYDROCODONE X13 (FROM 2006) WERE SENT HOME WITH HIS FRIEND HAILEY AGUSTIN.
--- NOTE | 2017-02-07 18:20 | NUR ---
SITTING UP IN W/C IN ROOM EATING SUPPER. PAIN MEDS GIVEN AT PT REQUEST FOR C/O PAIN TO LEFT RIBS AREA. STILL WEARING OXYGEN. RLE BRACE ON, LUE CAST IN PLACE.
[2017-02-07 19:30] VITALS: BP 125/74
--- NOTE | 2017-02-07 20:00 | NUR ---
TRANSFERRED PATIENT FROM W/C TO BED. CONTINUES ON O2 @ 2L.
[2017-02-08] VITALS (10 sets, daily range): BP systolic 59–108; BP diastolic 33–73
--- NOTE | 2017-02-08 | NUR ---
PT IN BED WITH HOB UP FOR COMFORT. EYES CLOSED. CHEST RISING AND FALLING. BED IN LOWEST POSITION AND CALL LIGHT WITHIN REACH.
--- NOTE | 2017-02-08 04:00 | NUR ---
PT IN BED WITH HOB UP FOR COMFORT. EYES CLOSED. RESPIRATIONS EVEN. BED IN LOWEST POSITION AND CALL LIGHT WITHIN REACH.
--- NOTE | 2017-02-08 07:20 | NUR ---
LYING IN BED EYES CLOSED RESTING QUIETLY. EASILY AROUSED WITH STIMULI. CALL LIGHT IN REACH. WILL CONTINUE TO MONITOR.
--- NOTE | 2017-02-08 10:12 | NUR ---
RESTING QUIETLY IN BED.CL IN REACH.
--- NOTE | 2017-02-08 10:44 | NUR ---
TRANSFERED PT FROM BED TO W/C. CONTINUES ON O2 AT 1.5L. RLE BRACE ON AND LUE CAST INTACT. CALL LIGHT IN REACH. WILL CONTINUE TO MONITOR.
--- NOTE | 2017-02-08 12:10 | NUR ---
SITTING UP IN W/C EATING LUNCH. 02 ON 1.5L VIA NC. DENIES ANY NEEDS. CALL LIGHT IN REACH
--- NOTE | 2017-02-08 13:20 | NUR ---
SITTING UP IN W/C IN ROOM C/O NAUSEA AND FEELING LIGHT HEADED. CHECKED BP 84/44, P 93, R19, 92% 1.5L. CONTINUED MONITORING PT VITALS AND CALLED FOR NASEEM RN TO COME ASSIST IN TRANSFERRING PT TO BED. ONCE PT WAS IN BED PT C/O TIGHTNESS IN CHEST AND SOB. PT STATED THAT THE CHEST PAIN FELT DIFFERENT THAN THE PAIN HE HAS HAD IN PAST. ORDERED CARDIAC WORKUP Q6H X3 AND CXR.
--- NOTE | 2017-02-08 14:30 | NUR ---
LYING IN BED HOB 45 DEGREES EYES CLOSED RESTING QUIELTY. APPROPRIATE RISE AND FALL OF CHEST. EASILY AROUSED WITH STIMULI. CALL LIGHT IN REACH. WILL CONTINUE TO MONITOR.
[2017-02-08 14:48] LABS: CREATINE KINASE 107 UL (21-232); TROPONIN-I < 0.017 ng/mL (0.000-0.060)
--- NOTE | 2017-02-08 15:39 | NUR ---
LYING IN BED EYES CLOSED RESTING. CONTINUE O2 AT 3L NC 93% NO S/SX OF RESPIRATORY DISTRESS. CALL LIGHT IN REACH. WILL CONTINUE TO MONITOR
--- NOTE | 2017-02-08 18:21 | NUR ---
LYING IN BED RESTING, NAD NOTED. CALL LIGHT IN REACH. O2 @ 4L NC NO S/SX OF RESPIRATORY DISTRESS. WILL CONTINUE TO MONITOR
--- NOTE | 2017-02-08 19:45 | NUR ---
PT. IN BED WITH HOB UP FOR COMFORT, O2 VIA N/C AT 4L/MIN WITHOUT ANY S/S DISTRESS. FEMALE VISITOR HERE AT THIS TIME, BUT LEFT SHORTLY AFTER I ENTERED ROOM. ASSESSMENT COMPLETED. PT. REQUESTED HIS RLE BE ADJUSTED STRAIGHT. PT. REPORTS THAT, "I DON'T KNOW WHO IT WAS BUT IN THE LAST COUPLE OF HOURS WHEN I WAS ADJUSTED UP IN BED MY KNEE CAP WAS TORKED." ATTEMPTED TO GET FURTHER INFORMATION FROM PT. ABOUT WHO IT WAS AND HE JUST COULDN'T REMEMBER, BUT KNEW IT HAD BEEN IN THE LAST COUPLE OF HOURS. PT'S RLE BRACE IS ON SECURELY AND I MADE AN ADJUSTMENT TO THE PILLOW UP UNDER HIS LEG AND HE SAID, "THAT'S PERFECT". PT. ABLE TO WIGGLE THE TOES ON HIS RIGHT FOOT WITHOUT PROBLEMS AND HIS TOE CAP. REFILL IS QUICK AND NO EDEMA TO THE LOWER LEG AROUND ANKLE DRESSING. CALL LIGHT WITHIN REACH.
[2017-02-08 20:12] LABS: CKMB 2.3 U/L (0.0-3.6); CREATINE KINASE 108 UL (21-232)
[2017-02-08 20:13] LABS: TROPONIN-I < 0.017 ng/mL (0.000-0.060)
--- NOTE | 2017-02-08 23:10 | NUR ---
PT. IN BED WITH HOB UP FOR COMFORT. EYES CLOSED AND RESP. DEEP AND EVEN. O2 ON VIA N/C @ 4L/MIN WITHOUT ANY S/S DISTRESS. RLE ELEVATED ON 2 PILLOWS FOR COMFORT. RLE BRACE IN PLACE WITHOUT ANY REPORTED PROBLEMS SINCE LAST VISIT WITH PT. CALL LIGHT WITHIN REACH.
[2017-02-09 02:37] LABS: CKMB 1.5 U/L (0.0-3.6); CREATINE KINASE 83 UL (21-232)
[2017-02-09 02:46] LABS: TROPONIN-I < 0.017 ng/mL (0.000-0.060)
--- NOTE | 2017-02-09 03:12 | NUR ---
PT. IN BED WITH HOB UP FOR COMFORT WITH EYES CLOSED AND RESP. EVEN. O2 ON VIA N/C @ 4L/MIN WITHOUT ANY S/S DISTRESS OBSERVED. CALL LIGHT WITHIN REACH.
--- NOTE | 2017-02-09 07:30 | NUR ---
SITTING UP IN BED RESTING. PT REQUESTS TO BE PULLED UP IN BED A LITTLE MORE. NASEEM LAUREANO ASSISTED WITH PULLING PT UP IN BED. PT TOLERATED WELL AND ASSISTED USING HIS LEFT LEG. CALL LIGHT IN REACH.
[2017-02-09 08:00] VITALS: BP 145/74
--- NOTE | 2017-02-09 09:32 | NUR ---
SITTING UP IN BED BRUSHING TEETH. DENIES ANY NEEDS AT THIS TIME. O2 ON @ 4L NC. WILL CONTINUE TO MONITOR. CALL LIGHT IN REACH
--- NOTE | 2017-02-09 09:51 | NUR ---
RESTING QUIETLY.CL IN REACH
--- NOTE | 2017-02-09 12:00 | NUR ---
SITTING UP IN BED EATING LUNCH AND VISITING WITH FAMILY. CALL LIGHT IN REACH
--- NOTE | 2017-02-09 17:06 | NUR ---
SITTING UP IN BED VISITING FRIENDS. CALL LIGHT IN REACH. WILL CONTINUE TO MONITOR
[2017-02-09 19:20] VITALS: BP 104/75
--- NOTE | 2017-02-09 20:05 | NUR ---
PT IN BED WITH HOB UP FOR COMFORT. WATCHING TV & PLAYING ON CELLPHONE. ALERT & ORIENTED. O2 @ 4L VIA N/C. NO IV. RT LEG IMMOBILIZER APPLIED. URINAL. MEDS WHOLE. MAX. ASSIST X2 PERSON. LEFT ARM CAST. BED IN LOWEST POSITION AND CALL LIGHT WITHIN REACH.
--- NOTE | 2017-02-10 00:02 | NUR ---
PT RESTING QUIETLY IN BED WITH HOB ELEVATED. RESPIRATIONS REGULAR AND UNLABORED.
--- NOTE | 2017-02-10 04:00 | NUR ---
PT IN BED WITH HOB UP FOR COMFORT. EYES CLOSED. CHEST RISING AND FALLING. BED IN LOWEST POSITION AND CALL LIGHT WITHIN REACH.
[2017-02-10 06:42] LABS: BASOPHILS 0.6 % (0-2); EOSINOPHILS 3.4 % (0-7); HEMATOCRIT 36.5 % (42.0-54.0); HEMOGLOBIN 11.6 g/dL (13.5-17.5); IMMATURE GRANULOCYTES 5.2 % (0-5); LYMPHOCYTES 14.7 % (15-50); MCH 28.9 pg (26.0-34.0); MCHC 31.8 g/dL (31.0-37.0); MEAN PLATELET VOLUME 9.4 fL (7.4-10.4); MONOCYTES 8.3 % (2-11); NEUTROPHILS 67.8 % (40-80); RBC 4.01 10x6/uL (4.20-6.10); WBC 10.4 10x3/uL (4.8-10.8)
[2017-02-10 06:50] LABS: PLATELET COUNT 454 10x3/uL (130-400)
[2017-02-10 07:06] LABS: ANION GAP 15.8 mmol/L (8-16); CALCIUM 8.6 mg/dL (8.5-10.1); CARBON DIOXIDE 24.8 mmol/L (21.0-32.0); CREATININE - SERUM 1.7 mg/dL (0.6-1.3); POTASSIUM - SERUM 5.6 mmol/L (3.5-5.1)
[2017-02-10 08:16] VITALS: BP 114/76
--- NOTE | 2017-02-10 08:22 | NUR ---
PT RESTING IN BED WITH EYES OPEN CALL LIGHT IN REACH NO PROBLEMS WILL MONITER
--- NOTE | 2017-02-10 12:25 | NUR ---
PATIENT ADMITTED TO REHAB FROM ACUTE FLOOR. DR. HAMPTON IS HIS PCP, [facility] IS [facility] OF CHOICE. DME AT HOME IS [facility]. IF PATIENT UNABLE TO DISCHARGE HOME HE WOULD LIKE TO GO TO [facility]. HE HAS A FRIEND THAT MAY HELP HIM AT DISCHRGE. ACUTE HAS MADE REFERRAL TO [facility]. WILL CONTINUE TO FOLLOW WITH PATIENT.
--- NOTE | 2017-02-10 17:47 | NUR ---
PT RESTING IN BED WITH EYES OPEN CALL LIGHT IN REACH WILL MONITER
--- NOTE | 2017-02-10 21:10 | NUR ---
EMPTY 450CC URINE FROM URINAL.
[2017-02-10 21:20] VITALS: BP 110/73
--- NOTE | 2017-02-11 01:51 | NUR ---
RESTING IN BED WITH EYES CLOSED. NO S/S OF DISTRESS OBSERVED. O2@ 3.5 LITERS PER NASAL CANNULA. RESPIRATIONS EVEN AND UNLABORED. RIGHT LEG ELEVATED WITH PILLOWS.
--- NOTE | 2017-02-11 04:48 | NUR ---
RESTING IN BED WITH EYES CLOSED AND SNORING. NO S/S OF DISTRESS OBSSERVED. O2 @ 3.5 LITERS PER NASAL CANNULA IN PLACE.
--- NOTE | 2017-02-11 09:42 | NUR ---
Nutrition Follow Up: Pt is eating 90% meal avg on a regular diet. He is receiving Ensure TID. No new wt to assess. +BM 02/10/17. Meds and labs noted. Pt with much improved po intake. Rec continue current diet, supplement regimen. RD following.
--- NOTE | 2017-02-11 14:35 | NUR ---
PT RESTING IN BED WITH EYES OPEN CALL LIGHT IN REACH NO PROBLEMS WILL MONITER
--- NOTE | 2017-02-11 18:32 | NUR ---
RESTING QUIETLY IN BED. NO S/S DISTRESS. CALL LIGHT IN REACH
--- NOTE | 2017-02-11 19:30 | NUR ---
PT. IN BED WITH HOB UP FOR COMFORT WITH EYES CLOSED AND RESP. EVEN. PT. RESTING SOUNDLY AND IT TOOK A LITTLE WHILE FOR HIM TO WAKE UP. ASSESSMENT COMPLETED. NO VOICED NEEDS AT THIS TIME. CALL LIGHT WITHIN REACH. PT. HAS VISITORS COMING IN TO SEE HIM.
[2017-02-11 21:15] VITALS: BP 117/75
--- NOTE | 2017-02-11 23:18 | NUR ---
PT. IN BED WITH HOB UP FOR COMFORT WITH EYES CLOSED AND RESP. EVEN. RLE UP ON PILLOW AND LUE UP ON PILLOW. CALL LIGHT WITHIN REACH.
--- NOTE | 2017-02-12 03:12 | NUR ---
PT. IN BED WITH HOB UP FOR COMFORT WITH EYES CLOSED AND RESP. EVEN. RLE ELEVATED UP ON PILLOW FOR COMFORT WELL LUE THAT IS IN A CAST. CALL LIGHT WITHIN REACH.
[2017-02-12 07:38] LABS: BASOPHILS 0.6 % (0-2); EOSINOPHILS 4.9 % (0-7); HEMATOCRIT 33.3 % (42.0-54.0); HEMOGLOBIN 10.6 g/dL (13.5-17.5); IMMATURE GRANULOCYTES 3.6 % (0-5); LYMPHOCYTES 15.7 % (15-50); MCH 28.5 pg (26.0-34.0); MCHC 31.8 g/dL (31.0-37.0); MCV 89.5 fL (80.0-100.0); MEAN PLATELET VOLUME 8.9 fL (7.4-10.4); MONOCYTES 9.8 % (2-11); NEUTROPHILS 65.4 % (40-80); PLATELET COUNT 519 10x3/uL (130-400); RBC 3.72 10x6/uL (4.20-6.10); RDW 13.9 % (11.5-14.5); WBC 8.4 10x3/uL (4.8-10.8)
[2017-02-12 07:56] LABS: ANION GAP 13.6 mmol/L (8-16); CALCIUM 8.5 mg/dL (8.5-10.1); CARBON DIOXIDE 24.9 mmol/L (21.0-32.0); CREATININE - SERUM 1.4 mg/dL (0.6-1.3); POTASSIUM - SERUM 5.5 mmol/L (3.5-5.1)
--- NOTE | 2017-02-12 08:00 | NUR ---
PATIENT ALERT/ORIENT X4. CALL LIGHT WITHIN REACH. VOICES NO NEEDS AT THIS TIME. OXYGEN ON AT 3L PER N/C. NO RESPITORY DISTRESS NOTED. BRACE ON TO LOWER RIGHT LEG. AND LEG UP ON PILLOWS.
[2017-02-12 08:55] VITALS: BP 116/75
--- NOTE | 2017-02-12 14:40 | NUR ---
PATIENT GIVEN A SHOWER WITH ASST FROM NURSE AID. LEG BRACE TO RIGHT LEG REMOVED FOR SHOWER. PUT ON AFTER SHOWER.
--- NOTE | 2017-02-12 14:58 | NUR ---
CARE TEAM MEETING: PATIENT ATTENDED MEETING, ANSWERED PATIENT QUESTION AND CONCERNS. DR. CLEVELAND TO SPEAK WITH DR. FERNÁNDEZ REGARDING POSSIBLE PENDING SURGERY.TENATIVE DISCHARGE DATE IS 02/19/17. WILL CONTINUE TO FOLLOW WITH PATIENT
--- NOTE | 2017-02-12 16:16 | NUR ---
PATIENT WORKING WITH PHYSICAL THERAPIST. WALKING IN HALLWAY. OXGEN REMOVED. MAINTAINED PULSE OX OF 95% RA
--- NOTE | 2017-02-12 17:42 | NUR ---
RESTING QUIETLY.CL IN REACH.
--- NOTE | 2017-02-12 19:35 | NUR ---
VISITOR PRESENT, APPEARED TO HAVE WOKEN PATIENT. PT CONVERSIVE, NO S/S OF ACUTE DISTRESS.
[2017-02-12 20:11] VITALS: BP 111/74
--- NOTE | 2017-02-12 23:00 | NUR ---
ASSISTED PT WITH REPOSITIONING LEG, PT OPPOSED TO REMOVING LEFT LEG BRACE. DID LOOSEN BRACE SLIGHTLY THE DISTAL END.
--- NOTE | 2017-02-13 04:15 | NUR ---
PT RESTING QUIETLY, RESPIRATIONS REGULAR AND UNLABORED. NO S/S OF ACUTE DISTRESS.
--- NOTE | 2017-02-13 08:00 | NUR ---
PT IS RESTING IN BED FEEDING SELF BREAKFAST WITHOUT DIFFICULTY. ALERT AND ORIENTED X 4. DENIES ACUTE PAIN OR DISCOMFORT AT THIS TIME.NO SOB NOTED. O2 IS ON @ 2LPM PER NC. RIGHT LEG KNEE BREACE IS ON AND INTACT. SR'S ARE UP X 3 IN BED. CALL LIGHT AND BEDSIDE TABLE ARE WITHIN EASY REACH.
--- NOTE | 2017-02-13 08:00 | NUR ---
DENIES NEEDS.CL IN REACH.
[2017-02-13 08:46] VITALS: BP 98/65
--- NOTE | 2017-02-13 10:03 | NUR ---
PT IS RESTING IN BED AWAITING THERAPY. NO NEEDS VOICED.
--- NOTE | 2017-02-13 12:00 | NUR ---
PT RESTING IN A WC IN HIS ROOM AWAITING LUNCH. NO NEEDS VOICED.
--- NOTE | 2017-02-13 14:20 | NUR ---
PT IS PARTICIPATING IN THERAPY AT THIS TIME.
--- NOTE | 2017-02-13 16:36 | NUR ---
PT IS RESTING IN BED WITH EYES CLOSED. NO ACUTE DISTRESS NOTED.
[2017-02-13 19:00] VITALS: BP 121/83
--- NOTE | 2017-02-13 19:15 | NUR ---
SITTING UP IN W/C AT BEDSIDE. MULTIPLE VISITORS PRESENT.
--- NOTE | 2017-02-13 20:00 | NUR ---
VISITORS ASSISTED PATIENT INTO BED. HE IS POSITIONED SATISFACTORILY AT THIS TIME. DENIES CURRENT NEEDS.
--- NOTE | 2017-02-13 22:05 | NUR ---
ASSESSMENT AND HS MEDS COMPLETE ASSISTED PATIENT TO REPOSITION HIGHER UP IN BED. DENIES PAIN. REQUESTED RIGHT KNEE IMMOBILIZER BE LOOSENED FOR THE NIGHT TO IMPROVE CIRCULATION. HEEL BRIDGED WITH A PILLOW. NO COMPRESSION/CONTACT BY PILLOW BEHIND HIS KNEE. HAS NO COMPALINTS AT THIS TIME.
--- NOTE | 2017-02-14 00:15 | NUR ---
RESTING QUIETLY IN BED, EYES CLOSED. EMPTIED 250ML FROM BEDSIDE URINAL.
--- NOTE | 2017-02-14 02:15 | NUR ---
CONTINUES IN BED, EYES CLOSED. NO APPARENT DISCOMFORT.
--- NOTE | 2017-02-14 04:40 | NUR ---
CONTINUES IN BED, EYES CLOSED. RESPIRATIONS ARE UNLABORED.
--- NOTE | 2017-02-14 05:45 | NUR ---
AWOKE PATIENT FOR SCHEDULED PO PROTONIX. DENIES CURRENT NEEDS.
--- NOTE | 2017-02-14 07:15 | NUR ---
LYING IN BED HOB 45 DEGREES. REMOVED O2 AND PT IS STABLE 95% ON ROOM AIR. WILL CONTINUE TO MONITOR. ALERT AND ORIENTED X4. ONLY COMPLAINT IS HIS ROOMMATE BEING VERY HATEFUL AND RUDE. CALL LIGHT IN REACH
[2017-02-14 07:21] LABS: BASOPHILS 0.6 % (0-2); EOSINOPHILS 3.2 % (0-7); HEMATOCRIT 34.8 % (42.0-54.0); HEMOGLOBIN 11.2 g/dL (13.5-17.5); IMMATURE GRANULOCYTES 1.4 % (0-5); LYMPHOCYTES 20.7 % (15-50); MCH 28.8 pg (26.0-34.0); MCHC 32.2 g/dL (31.0-37.0); MCV 89.5 fL (80.0-100.0); MEAN PLATELET VOLUME 8.9 fL (7.4-10.4); MONOCYTES 6.6 % (2-11); NEUTROPHILS 67.5 % (40-80); PLATELET COUNT 548 10x3/uL (130-400); RBC 3.89 10x6/uL (4.20-6.10); RDW 13.8 % (11.5-14.5); WBC 8.4 10x3/uL (4.8-10.8)
[2017-02-14 07:43] LABS: ANION GAP 11.9 mmol/L (8-16); CARBON DIOXIDE 28.1 mmol/L (21.0-32.0); CREATININE - SERUM 1.4 mg/dL (0.6-1.3)
[2017-02-14 08:00] VITALS: BP 118/86
--- NOTE | 2017-02-14 09:08 | NUR ---
SITTING UP IN BED WATCHING TV. PLEASANT AFFECT. CALL LIGHT IN REACH. DENIES ANY PAIN OR NEEDS AT THIS TIME. WILL CONTINUE TO MONITOR.
--- NOTE | 2017-02-14 10:15 | NUR ---
DAMEON ALMANZA FOR DR. FERNÁNDEZ CALLED AND ADVISED PT IS SCHEDULED TO HAVE ORTHO SURGERY AND IS NEEDING PT TO BE PLACED UPSTAIRS FOR HEPARIN BRIDGE MANAGED BY DR. JAMISON. -1025 CALL[address] AND SPOKE WITH DR. CLEVELAND AND ADVISED OF DR. FERNÁNDEZ'S POC FOR PT AND HE ADVISED THAT WOULD BE FINE AND GAVE VERBAL ORDERS TO DC TO UPSTAIRS.
--- NOTE | 2017-02-14 11:03 | NUR ---
IN GYM WITH OCCUPATIONAL THERAPY.
--- NOTE | 2017-02-14 14:15 | NUR ---
PATIENT DISCHARGING FROM REHAB AND ADMITTING TO ACUTE FLOOR DUE TO PENDING SURGERY.
[2017-02-14] MEDS ORDERED: IPRAT-ALBUT 0.5-3 ML UPD (14:27)
[2017-02-14] MEDS ORDERED: ELIQUIS5 MG PO (14:28)
[2017-02-14] MEDS ORDERED: NORVASC5 MG PO (14:30)
[2017-02-14] MEDS ORDERED: LOTENSIN20 MG PO (14:30)
[2017-02-14] MEDS ORDERED: KLONOPIN1 MG PO (14:35)
[2017-02-14] MEDS ORDERED: HYDROCODON-ACE1 EAC7 PO (14:36)
[2017-02-14] MEDS ORDERED: LEXAPRO10 MG PO (14:36)
[2017-02-14] MEDS ORDERED: IBUPROFEN600 MG PO (14:37)
--- NOTE | 2017-02-14 15:27 | NUR ---
SITTING UP IN W/C VISITING WITH FRIENDS. DENIES ANY NEEDS AT THIS TIME. CALL LIGHT IN REACH.
--- NOTE | 2017-02-14 16:30 | NUR ---
REVIEWED D/C ORDERS AND MEDICATIONS WITH PATIENT. DENIES ANY CONCERNS AT THIS TIME. 1640-STARTED IV RIGHT WRIST 20G WITH ONE ATTEMPT. DRESSING C/D/I PT TOLERATED WELL.
--- NOTE | 2017-02-14 18:00 | NUR ---
CALLED REPORT TO EDDIE ON [facility]. AND VERIFIED THAT ROOM IS CLEANED. 183-TRANSPORTED PT VIA BED TO [facility] AND HANDED OFF TO EDDIE RN
== END 2017-02-14 18:21 | disposition short-term general hospital (02) | DRG 189 ==
LOC: D.REHAB 19:21
PROVIDERS: ADMIT Emergency Medicine
DX: J96.01 Acute respiratory failure with hypoxia (principal); I26.99 Other pulmonary embolism without acute cor pulmonale; I82.401 Acute embolism and thrombosis of unspecified deep veins of right lower extremity; N17.9 Acute kidney failure, unspecified; I10 Essential (primary) hypertension; R07.9 Chest pain, unspecified; S62.109D Fracture of unspecified carpal bone, unspecified wrist, subsequent encounter for fracture with routine healing; V89.2XXD Person injured in unspecified motor-vehicle accident, traffic, subsequent encounter; R53.1 Weakness

== ENCOUNTER 2017-02-14 18:12 | Inpatient (IN) | payer MEDICARE, BC ==
[~2017-02-14] VITALS: Ht 175.3 cm; Wt 83.9 kg
[~2017-02-14 18:12] MED LIST changes: +ELIQUIS5 MG PO; +IBUPROFEN600 MG PO; +KLONOPIN1 MG PO; +LEXAPRO10 MG PO; +LOTENSIN20 MG PO; +NORVASC5 MG PO
--- NOTE | 2017-02-14 18:20 | NUR ---
PATIENT TO ROOM AT THIS TIME FROM REHAB. OUICK START DONE. PATIENT RECIEVED WATER AND OTHER NEEDS STATED. NO COMPLAINTS AT THIS TIME. IV INTACT. CALL LIGHT WITHIN REACH.
[2017-02-14 18:47] LABS: BASOPHILS 0.4 % (0-2); EOSINOPHILS 1.9 % (0-7); HEMATOCRIT 36.2 % (42.0-54.0); HEMOGLOBIN 11.7 g/dL (13.5-17.5); IMMATURE GRANULOCYTES 1.3 % (0-5); LYMPHOCYTES 12.7 % (15-50); MCHC 32.3 g/dL (31.0-37.0); MCV 89.6 fL (80.0-100.0); MEAN PLATELET VOLUME 8.8 fL (7.4-10.4); MONOCYTES 7.2 % (2-11); NEUTROPHILS 76.5 % (40-80); PLATELET COUNT 539 10x3/uL (130-400); RBC 4.04 10x6/uL (4.20-6.10); RDW 13.7 % (11.5-14.5)
[2017-02-14 18:55] LABS: ANION GAP 13.9 mmol/L (8-16); CALCIUM 8.7 mg/dL (8.5-10.1); CARBON DIOXIDE 26.8 mmol/L (21.0-32.0); CREATININE - SERUM 1.4 mg/dL (0.6-1.3); POTASSIUM - SERUM 4.7 mmol/L (3.5-5.1)
[2017-02-14 18:58] LABS: APTT 28.8 SECONDS (22.8-39.4); INR 1.34 (0.85-1.17); PROTIME 16.4 SECONDS (11.6-15.0); WBC 10.7 10x3/uL (4.8-10.8)
--- NOTE | 2017-02-14 19:45 | NUR ---
PT IS RESTING IN BED WITH EYES OPEN. ALERT AND ORIENTED X 3. FRIEND VISITING AT BEDSIDE. KNEE BRACE IS INTACT TO RIGHT KNEE. LOWER LEG IS ELEVATED UP ON A PILLOW. RIGHT WRIST SALINE LOCK NOTED. LEFT ARM CAST IS INTACT. DRESSING TO RIGHT ANKLE IS CDI. PT REQUESTED ASSIST TO REMOVE HIS PANTS TO MAKE USING THE URINAL EASIER. SR'S ARE UP X 3 IN BED. CALL LIGHT AND BEDSIDE TABLE ARE WITHIN EASY REACH.
[2017-02-14 20:00] VITALS: BP 122/73
--- NOTE | 2017-02-14 22:26 | NUR ---
PT IS RESTING QUIETLY IN BED WITH EYES CLOSED. RESPS ARE EVEN AND UNLABORED. NO ACUTE DISTRESS NOTED.
[2017-02-14 23:29] VITALS: BP 122/73; BMI 27.3
[2017-02-15] VITALS: BP 125/68
--- NOTE | 2017-02-15 00:43 | NUR ---
PT RESTING IN BED WITH EYES CLOSED. NO DISTRESS NOTED.
[2017-02-15 02:06] LABS: HEMATOCRIT 33.9 % (42.0-54.0); HEMOGLOBIN 11.1 g/dL (13.5-17.5); MCH 28.8 pg (26.0-34.0); MCHC 32.7 g/dL (31.0-37.0); MCV 88.1 fL (80.0-100.0); MEAN PLATELET VOLUME 8.7 fL (7.4-10.4); RBC 3.85 10x6/uL (4.20-6.10); RDW 13.6 % (11.5-14.5); WBC 9.6 10x3/uL (4.8-10.8)
--- NOTE | 2017-02-15 02:48 | NUR ---
PTT IS 31.7. HEPARIN BOLUS OF 3000 UNITS GIVEN. RATE INCREASED TO 1000 U PER HR.
--- NOTE | 2017-02-15 03:22 | NUR ---
PT RESTING IN BED WITH EYES CLOSED.
[2017-02-15 04:00] VITALS: BP 101/66
--- NOTE | 2017-02-15 06:00 | NUR ---
PT RESTING QUIETLY IN BED WITH EYES CLOSED. AWAKENS EASILY TO VERBAL STIMULI. NO COMPLAINT OF ACUTE DISCOMFORT VOICED.
--- NOTE | 2017-02-15 07:37 | NUR ---
SLEEPING, BREATHING EVEN ADN UNLABORED, BED LOWEST POSITION, CALL LIGHT IN REACH, WILL CONTINUE TO MONITOR
[2017-02-15 09:13] VITALS: BP 111/67
[2017-02-15 12:45] VITALS: Ht 175.3 cm; Wt 83.9 kg
[2017-02-15 13:11] VITALS: BP 131/74
--- NOTE | 2017-02-15 18:00 | NUR ---
RESPIRATIONS EVEN AND NON LABORED. CALL LIGHT IN REACH. DENIES NEEDS AT THIS TIME. WILL CONTINUE WITH PLAN OF CARE.
[2017-02-15 18:05] VITALS: BP 101/71
--- NOTE | 2017-02-15 19:39 | NUR ---
PT IS SITTING IN A CHAIR AT THE BEDSIDE WITH FEET ELEVATED ON FOOT REST. ALERT AND ORIENTED X 3. DENIES ACUTE DISCOMFORT AT THIS TIME. RIGHT LEG BRACE IS ON AND INTACT. HEPARIN IS INFUSING TO RIGHT WRIST WITHOUT DIFFICULTY. NO NEEDS VOICED. CALL LIGHT IS IN EASY REACH.
--- NOTE | 2017-02-15 21:46 | NUR ---
PT RESTING IN BED WATCHING TV. NO NEEDS VOICED. RIGHT LEG ELEVATED ON 2 PILLOWS PER HIS REQUEST. NO FURTHER NEEDS VOICED.
--- NOTE | 2017-02-15 23:18 | NUR ---
PTT IS 47.4. HEPARIN RATE RAISED TO 1400 UNITS HR.
--- NOTE | 2017-02-16 00:01 | NUR ---
PT IS RESTING IN BED WITH EYES CLOSED. NO DISTRESS NOTED.
--- NOTE | 2017-02-16 01:04 | NUR ---
SLEEPING NO DISTRESS NOTED. SR UP X 2. CALL LIGHT WITHIN REACH.
--- NOTE | 2017-02-16 03:20 | NUR ---
PT RESTING IN BED DOING A UPDRAFT TX. NO NEEDS VOICED.
[2017-02-16 04:00] VITALS: BP 110/70
[2017-02-16 05:27] LABS: BASOPHILS 0.6 % (0-2); EOSINOPHILS 2.4 % (0-7); HEMATOCRIT 34.9 % (42.0-54.0); HEMOGLOBIN 11.3 g/dL (13.5-17.5); IMMATURE GRANULOCYTES 0.7 % (0-5); MCH 28.6 pg (26.0-34.0); MCHC 32.4 g/dL (31.0-37.0); MCV 88.4 fL (80.0-100.0); MEAN PLATELET VOLUME 9.2 fL (7.4-10.4); MONOCYTES 6.6 % (2-11); NEUTROPHILS 66.7 % (40-80); PLATELET COUNT 563 10x3/uL (130-400); RBC 3.95 10x6/uL (4.20-6.10); RDW 13.7 % (11.5-14.5); WBC 9.1 10x3/uL (4.8-10.8)
[2017-02-16 05:56] LABS: ANION GAP 11.9 mmol/L (8-16); CALCIUM 8.6 mg/dL (8.5-10.1); CREATININE - SERUM 1.4 mg/dL (0.6-1.3); POTASSIUM - SERUM 4.9 mmol/L (3.5-5.1)
--- NOTE | 2017-02-16 06:01 | NUR ---
PTT IS 53.1. HEPARIN RATE RAISED TO 1500 UNITS/HR.
--- NOTE | 2017-02-16 07:45 | NUR ---
SITTING UP IN BED, DENIES NEEDS, BED LOWEST POSITION, CALL LIGHT IN REACH , WILL CONTINUE TO MONITOR
[2017-02-16 09:12] VITALS: BP 126/87
--- NOTE | 2017-02-16 12:11 | NUR ---
HEPARIN IV NOW RUNNING AT 1600 UNITS/HR INCREASED BY 100 UNIT/HR
--- NOTE | 2017-02-16 15:23 | NUR ---
PT SITTING UP IN CHAIR WITH NO VISABLE SIGNS OF PAIN OR DISCOMFORT AT THIS TIME. BED IN LOW POSITION AND CALL LIGHT WITHIN REACH. WILL CONTINUE TO MONITOR.
[2017-02-16 20:00] VITALS: BP 128/79
--- NOTE | 2017-02-17 01:02 | NUR ---
HEPARIN DRIP STOPPED AT 0045.
--- NOTE | 2017-02-17 02:00 | NUR ---
PT IN BED WITH NO DISTRESS. RESPIRATIONS EVEN AND UNLABORED. SIDE RAILS X 2. BED IS LOW. CALL LIGHT IN REACH.
[2017-02-17 04:00] VITALS: BP 104/77
[2017-02-17 05:56] LABS: HEMATOCRIT 36.1 % (42.0-54.0); HEMOGLOBIN 11.6 g/dL (13.5-17.5); MCH 28.6 pg (26.0-34.0); MCHC 32.1 g/dL (31.0-37.0); MCV 88.9 fL (80.0-100.0); MEAN PLATELET VOLUME 9.1 fL (7.4-10.4); RBC 4.06 10x6/uL (4.20-6.10); RDW 13.8 % (11.5-14.5); WBC 9.1 10x3/uL (4.8-10.8)
[2017-02-17 06:08] LABS: ANION GAP 12.1 mmol/L (8-16); CALCIUM 8.8 mg/dL (8.5-10.1); CARBON DIOXIDE 28.7 mmol/L (21.0-32.0); CREATININE - SERUM 1.3 mg/dL (0.6-1.3); POTASSIUM - SERUM 4.8 mmol/L (3.5-5.1)
--- NOTE | 2017-02-17 08:15 | NUR ---
ASSESSMENT COMPLETE. SL TO R WRIST. SPLINT IN USE TO L ARM. BRACE IN USE TO R KNEE. NPO FOR SURGERY TODAY. REDNESS NOTED TO R ARM.
[2017-02-17 08:32] VITALS: BP 123/70
[2017-02-17 12:44] VITALS: BP 135/88
--- NOTE | 2017-02-17 13:18 | NUR ---
OFF FLOOR TO OR VIA BED.
[2017-02-17 17:22] VITALS: BP 140/97
--- NOTE | 2017-02-17 17:25 | NUR ---
RECEIVED BACK TO ROOM FROM RECOVERY ROOM VIA BED. MICHAEL WRAP DRESSING C/D/I TO R KNEE. IMMOBILIZER IN USE TO R KNEE. VSS. O2 4L PER OXIMIZER IN USE.DROWSY BUT AWAKENS TO VERBAL STIMULI EASILY.
--- NOTE | 2017-02-17 17:29 | NUR ---
PATIENT TO FLOOR ON OXYMIZER 4 L WITH O2 SAT OF 93. PATIENT VERY DROWSY AND BREATHING THRU MOUTH. O2 92 PRE-OP.
[2017-02-17 19:00] VITALS: BP 109/85
[2017-02-18 04:00] VITALS: BP 111/76
[2017-02-18 05:02] LABS: BASOPHILS 0.1 % (0-2); EOSINOPHILS 0 % (0-7); HEMATOCRIT 34.9 % (42.0-54.0); HEMOGLOBIN 11.1 g/dL (13.5-17.5); IMMATURE GRANULOCYTES 0.4 % (0-5); MCH 28.5 pg (26.0-34.0); MCHC 31.8 g/dL (31.0-37.0); MCV 89.5 fL (80.0-100.0); MEAN PLATELET VOLUME 9.2 fL (7.4-10.4); MONOCYTES 8.2 % (2-11); NEUTROPHILS 83.3 % (40-80); PLATELET COUNT 484 10x3/uL (130-400); RDW 13.8 % (11.5-14.5)
[2017-02-18 05:06] LABS: WBC 13.4 10x3/uL (4.8-10.8)
[2017-02-18 05:33] LABS: ALBUMIN 2.7 g/dL (3.4-5.0); ANION GAP 13.9 mmol/L (8-16); BILIRUBIN - TOTAL 0.4 mg/dL (0.2-1.3); CALCIUM 8.3 mg/dL (8.5-10.1); CARBON DIOXIDE 25.2 mmol/L (21.0-32.0); CREATININE - SERUM 1.4 mg/dL (0.6-1.3); POTASSIUM - SERUM 5.1 mmol/L (3.5-5.1); PROTEIN - SERUM 6.2 g/dL (6.4-8.2)
--- NOTE | 2017-02-18 07:30 | NUR ---
ASSESSMENT COMPLETE. IV TO R WRIST PATENT. IMMOBILIZER IN USE TO R KNEE. MICHAEL WRAP DRESSING C/D/I TO R KNEE. DRESSING TO R ANKLE INTACT. O2 5L PER OXIMIZER IN USE.
[2017-02-18 08:43] VITALS: BP 111/80
--- NOTE | 2017-02-18 12:00 | NUR ---
NO CHANGES NOTED AT PRESENT.
[2017-02-18 13:56] VITALS: BP 115/80
--- NOTE | 2017-02-18 15:43 | NUR ---
Patient Name: GABE LOWE Admission Status: Elective Accout number: [id number] Admission Date: 02-14-2017 : 1955 Admission Diagnosis:OTH TEAR OF LAT MENSC, CURRENT INJURY, RIGHT KNEE, SUBS Attending: TESSIE Current LOS: 4 Anticipated DC Date: 02-19-2017 Planned Disposition: Inpatient Rehab Primary Insurance: MEDICARE PART A ONLY Discharge Planning Comments: CM MET WITH PATIENT REGARDING D/C NEEDS AND PLANS. PATIENT STATED HE LIVES ALONE AND HAS 2 STEPS W/O RAILS TO ENTER HOME AND NO STAIRS INSIDE. PATIENT IS GOING TO IP REHAB AT DISCHARGE. PATIENT IS INDEPENDENT AT HOME AND HAS ACCESS TO A WHEELCHAIR AND HAS CRUTCHES AT HOME. PATIENTS PCP IS DR. HAMPTON AND USES [facility] ON [address] FOR HIS PHARMACY. CM WILL COTNINUE TO FOLLOW PATIENT WITH D/C NEEDS AND PLANS. PCP DR. MEMO TSE ON [address]- [phone] HAILEY AGUSTIN (FRIEND) [phone] Plastic Tool Maker: Shima Nice Is the patient Alert and Oriented? Yes 0 * How many steps to enter\exit or inside your home? 2 W/O RAIL 0 * PCP DR. HAMPTON 0 * Pharmacy [facility] ON [address] 0 * ADLs Independent 0 * Equipment Crutch Wheelchair 0 * List name and contact numbers for known caregivers / representatives who currently or will assist patient after discharge: HAILEY AGUSTIN (FRIEND) [phone] 0 * Community resources currently utilized None 0 * Additional services required to return to the preadmission environment? Yes 0 * Can the patient safely return to the preadmission environment? Yes 0 * Has this patient been hospitalized within the prior 30 days at any hospital? No 0 Grand Total: 0
[2017-02-18 16:17] VITALS: BP 126/80
--- NOTE | 2017-02-18 17:00 | NUR ---
VISITING WITH COMPANY. DENIES ANY NEEDS AT PRESENT.
[2017-02-18] MEDS ORDERED: IPRAT-ALBUT 0.5-3 ML UPD (17:29)
--- NOTE | 2017-02-18 20:56 | NUR ---
TRANSFERED VIA BED TO REHAB
== END 2017-02-18 20:45 | DRG 939 ==
LOC: D.MS 18:12
PROVIDERS: Family Medicine; ADMIT Orthopaedic Surgery
PROC: 0SBC4ZZ Excision of Right Knee Joint, Percutaneous Endoscopic Approach (ICD-10-PCS; principal; 2017-02-17 14:00)
PROC: 0SBC4ZZ Excision of Right Knee Joint, Percutaneous Endoscopic Approach (ICD-10-PCS; 2017-02-17 14:00)
PROC: 0MQN4ZZ Repair Right Knee Bursa and Ligament, Percutaneous Endoscopic Approach (ICD-10-PCS; 2017-02-17 14:00)
DX: S83.281D Other tear of lateral meniscus, current injury, right knee, subsequent encounter (principal); I26.99 Other pulmonary embolism without acute cor pulmonale; I82.411 Acute embolism and thrombosis of right femoral vein; S83.241D Other tear of medial meniscus, current injury, right knee, subsequent encounter; X58.XXXD Exposure to other specified factors, subsequent encounter; S83.511D Sprain of anterior cruciate ligament of right knee, subsequent encounter; S83.411A Sprain of medial collateral ligament of right knee, initial encounter; S62.309D Unspecified fracture of unspecified metacarpal bone, subsequent encounter for fracture with routine healing; I10 Essential (primary) hypertension; E86.0 Dehydration

== ENCOUNTER 2017-02-18 20:15 | Inpatient (IN) | payer MEDICARE, BC ==
[~2017-02-18] VITALS: Ht 175.3 cm; Wt 86.2 kg
[2017-02-18 23:41] VITALS: BP 128/86; BMI 28.1
--- NOTE | 2017-02-19 00:05 | NUR ---
ADMISSION PROCESS COMPLETED. PT. REQUESTING PAIN MEDS SOON HIS ORDERS HAVE BEEN COMPLETED. PT. WANTING TO KEEP PAIN AT A TOLERABLE LEVEL HE HAD A BAD NIGHT LAST NIGHT DUE TO UNCONTROLLED PAIN HE SAID. PT. LYING WITH THE HOB UP FOR COMFORT. BRACE/IMMOBILIZER IN PLACE TO RLE. MICHAEL WRAP TO RIGHT KNEE C/D/I. DRESSING TO RIGHT ANKLE ALSO C/D/I. SPLINT/CAST TO LEFT WRIST AREA C/D/I. CALL LIGHT WITHIN REACH.
--- NOTE | 2017-02-19 03:02 | NUR ---
PT. IN BED WITH HOB UP FOR COMFORT. EYES CLOSED AND RESP. EVEN. O2 ON AT 4L/MIN VIA N/C. NO S/S DISTRESS OBSERVED. CALL LIGHT WITHIN REACH.
--- NOTE | 2017-02-19 06:11 | NUR ---
PT. IN BED WITH HOB UP FOR COMFORT AND RLE ELEVATED ON PILLOW FOR COMFORT. PT. WATCHING TV AND COMMUNICATING ON HIS CELL PHONE. NO VOICED NEEDS. CALL LIGHT WITHIN REACH. O2 ON AT 4L/MIN VIA N/C WITHOUT ANY S/S DISTRESS.
[2017-02-19 06:32] LABS: BASOPHILS 0.6 % (0-2); EOSINOPHILS 2.1 % (0-7); HEMATOCRIT 33.5 % (42.0-54.0); HEMOGLOBIN 10.7 g/dL (13.5-17.5); IMMATURE GRANULOCYTES 0.3 % (0-5); LYMPHOCYTES 17.6 % (15-50); MCH 28.9 pg (26.0-34.0); MCHC 31.9 g/dL (31.0-37.0); MCV 90.5 fL (80.0-100.0); MEAN PLATELET VOLUME 9.3 fL (7.4-10.4); MONOCYTES 9.2 % (2-11); NEUTROPHILS 70.2 % (40-80); PLATELET COUNT 425 10x3/uL (130-400)
[2017-02-19 06:36] LABS: WBC 8.9 10x3/uL (4.8-10.8)
[2017-02-19 07:02] LABS: CALCIUM 8.5 mg/dL (8.5-10.1); CARBON DIOXIDE 25.9 mmol/L (21.0-32.0); CREATININE - SERUM 1.3 mg/dL (0.6-1.3); POTASSIUM - SERUM 4.9 mmol/L (3.5-5.1)
--- NOTE | 2017-02-19 07:33 | NUR ---
RESTING QUIETLY IN BED. EYES CLOSED. NO S/S DISTRESS OR NEEDS. CALL LIGHT IN REACH.
[2017-02-19 07:56] VITALS: BP 110/75
[2017-02-19 11:12] VITALS: Ht 175.3 cm; Wt 86.2 kg
--- NOTE | 2017-02-19 11:24 | NUR ---
ADMINISTERED 2 NORCO 5MG PER PT REQUEST FOR PAIN 6/10 RIGHT KNEE. OFFERS NO OTHER COMPLAINTS AT THIS TIME. PT IN GYM WITH OCCUPATIONAL THERAPY.
--- NOTE | 2017-02-19 15:12 | NUR ---
CARE TEAM MEETING: PATIENT NEW TO UNIT AND WILL BE RA AT NEXT MEETING. PLANS ARE FOR HIM TO RETURN HOME WITH HELP FROM HIS FREINDS. DR. HAMPTON IS HIS PCP AND [facility] IS HIS PHARMACY OF CHOICE. DME AT HOME: BEDSIDE COMMODE AND GLUCOMETER. WILL CONTINUE TO FOLLOW WITH PATIENT .
[2017-02-19 19:00] VITALS: BP 116/75
--- NOTE | 2017-02-19 19:35 | NUR ---
PT UP IN W/C. VISITORS IN ROOM. ALERT & ORIENTED. RIGHT LEG MICHAEL WRAPPED AND KNEE IMMOBILIZER. LEFT ARM IN CAST. RIGHT ANKLE DRESSING C/D/I. NO IV. NO O2. VALERI ALARM. CALL LIGHT WITHIN REACH.
--- NOTE | 2017-02-19 23:35 | NUR ---
PT IN BED WITH HOB UP FOR COMFORT. EYES CLOSED. RESP. EVEN. BED IN LOWEST POSITION AND CALL LIGHT WITHIN REACH.
--- NOTE | 2017-02-20 00:40 | NUR ---
RESTING IN BED, EYES CLOSED. EARLIER ATTEMPTED TO TRANSFER PATIENT TO BED PAINLESSLY POSSIBLE, BUT PATIENT WOULD NOT FOLLOW INSTRUCTIONS I GAVE THEM, RESULTING IN HIS TRANSFERRING HIS WEIGHT FROM HIS GOOD LEFT LEG TO INJURED RIGHT LEG WITH RESULTANT MARKED INCREASE IN PAIN. THIS TOOK PLACE AROUND 2129.
--- NOTE | 2017-02-20 01:11 | NUR ---
PT LYING IN BED, EYES CLOSED. CHEST RISING AND FALLING. BED IN LOWEST POSITION AND CALL LIGHT WITHIN REACH.
--- NOTE | 2017-02-20 04:18 | NUR ---
PT IN BED WITH HOB UP FOR COMFORT. EYES CLOSED. CHEST RISING AND FALLING. BED IN LOWEST POSITION AND CALL LIGHT WITHIN REACH.
--- NOTE | 2017-02-20 07:30 | NUR ---
PT IS RESTING IN BED WITH EYES OPEN. PT VOICED COMPLAINT OF ELEVATED LEG PAIN. STATES IT IS WORSE THAN ITS BEED ALL ALONG. PT STATES HE IS WORRIED ABOUT HAVING BROKE SOMETHING OR HAVING MORE BLOOD CLOTS. RIGHT KNEE BRACE IS ON AND INTACT. RIGHT ANKLE DRESSING IS CDI. LEFT ARM CAST IS ON AND INTACT. SR'S ARE UP X 3 IN BED. CALL LIGHT AND BEDSIDE TABLE ARE WITHIN EASY REACH. X RAY HERE AT THIS TIME TO DO XRAY OF RIGHT KNEE.
[2017-02-20 08:00] VITALS: BP 121/91
--- NOTE | 2017-02-20 09:57 | NUR ---
PT IS RESTING IN BED AWAITING THERAPY. NO ACUTE DISTRESS NOTED.
--- NOTE | 2017-02-20 10:01 | NUR ---
PT SIGNED A BED ALARM WAIVER.
--- NOTE | 2017-02-20 10:27 | NUR ---
Nutrition Follow Up: Chart reviewed. Pt is eating 100% meal avg on a regular diet. Wt stable. No BM since admit. Meds and labs reviewed. Rec continue current diet. RD following.
--- NOTE | 2017-02-20 12:01 | NUR ---
PT IS FEEDING SELF LUNCH IN HIS ROOM. NO ACUTE DISTRESS NOTED.
--- NOTE | 2017-02-20 13:32 | NUR ---
PT IS PARTICIPATING IN THERAPY AT THIS TIME.
--- NOTE | 2017-02-20 16:26 | NUR ---
PT RESTING IN BE WITH CPM ON RIGHT LEG. NO ACUTE DISTRESS NOTED.
--- NOTE | 2017-02-20 17:34 | NUR ---
SITTING UP EATING SUPPER. DENIES NEEDS. CALL LIGHT IN REACH.
[2017-02-20 19:21] VITALS: BP 104/74
--- NOTE | 2017-02-20 19:30 | NUR ---
REST IN BED AND WATCH TV.
--- NOTE | 2017-02-21 03:30 | NUR ---
REST QUIETLY IN BED, EYE CLOSE, BED LOW, CALL LIGHT WITHIN REACH.
--- NOTE | 2017-02-21 04:05 | NUR ---
RESTING IN BED, EYES CLOSED.
[2017-02-21 07:03] LABS: BASOPHILS 0.7 % (0-2); EOSINOPHILS 2.5 % (0-7); HEMATOCRIT 32.2 % (42.0-54.0); HEMOGLOBIN 10.4 g/dL (13.5-17.5); IMMATURE GRANULOCYTES 0.4 % (0-5); LYMPHOCYTES 17.2 % (15-50); MCH 28.7 pg (26.0-34.0); MCHC 32.3 g/dL (31.0-37.0); MEAN PLATELET VOLUME 9.8 fL (7.4-10.4); MONOCYTES 11.7 % (2-11); NEUTROPHILS 67.5 % (40-80); RBC 3.62 10x6/uL (4.20-6.10); RDW 14.2 % (11.5-14.5); WBC 7.7 10x3/uL (4.8-10.8)
[2017-02-21 07:13] LABS: ANION GAP 12.8 mmol/L (8-16); CALCIUM 8.6 mg/dL (8.5-10.1); CARBON DIOXIDE 27.7 mmol/L (21.0-32.0); CREATININE - SERUM 1.3 mg/dL (0.6-1.3); PLATELET COUNT 330 10x3/uL (130-400); POTASSIUM - SERUM 4.5 mmol/L (3.5-5.1)
--- NOTE | 2017-02-21 07:30 | NUR ---
PT IS RESTING IN BED WITH EYES CLOSED. AWOKE EASILY TO VERBAL STIMULI. PT IS ALERT AND ORIENTED X 3. STATES: "I THINK I FEEL A LITTLE BETTER TODAY THAN YESTERDAY, BUT MY LEG IS A LITTLE SORE FROM THE CPM LAST NIGHT." DRESSINGS TO RIGHT KNEE AND ANKLE ARE CDI. LEFT ARM CAST IS INTACT. VSS. SR'S ARE UP X 3 IN BED. CALL LIGHT AND BEDSIDE TABLE ARE WITHIN EASY REACH.
[2017-02-21 08:00] VITALS: BP 99/64
--- NOTE | 2017-02-21 09:30 | NUR ---
PT IS RESTING IN BED AWAITING THERAPY. NO ACUTE DISTRESS NOTED.
--- NOTE | 2017-02-21 12:36 | NUR ---
PT ASSISTED TO LAY DOWN IN BED. STATES HE HAS A LOT OF ACID INDEGETION THIS AFTERNOON, AND WANTS TO JUST REST FOR NOW. MOD ASSIST GIVEN WITH TRANSFER.
--- NOTE | 2017-02-21 15:00 | NUR ---
PT IS RESTING QUIETLY IN BED WITH EYES CLOSED. RESPS ARE EVEN AND UNLABORED. NO ACUTE DISTRESS NOTED.
--- NOTE | 2017-02-21 17:49 | NUR ---
PT RESTING IN BED AFTER SUPPER. ALL VISITORS HAVE LEFT, AND HE IS NODDING OFF. NO DISTRESS NOTED. USING URINAL PRN.
--- NOTE | 2017-02-21 18:44 | NUR ---
SITTING IN W/C IN ROOM WATCHING TV. CALL LIGHT IN REACH
--- NOTE | 2017-02-21 19:30 | NUR ---
FAMILY/FRIENDS COME TO VISIT.
[2017-02-21 19:50] VITALS: BP 110/64
--- NOTE | 2017-02-21 22:10 | NUR ---
C/O LEG PAIN, AT A LEVEL OF 8, PAIN MED GIVEN.
--- NOTE | 2017-02-22 03:25 | NUR ---
RESTING IN BED, EYES CLOSED.
[2017-02-22 07:30] VITALS: BP 93/59
--- NOTE | 2017-02-22 09:24 | NUR ---
PT ASSISTED UP INTO WC WITH MAX ASSIST. RIGHT LEG ELEVATED ON FOOT REST. KNEE IMMOBILIZER IS ON AND INTACT. LEFT ARM CAST IS CDI. PT ASSISTED TO THE SINK. HE IS BRUSHING HIS TEETH INDEPENDENTLY.
--- NOTE | 2017-02-22 12:42 | NUR ---
PT IS RESTING IN BED WITH EYES OPEN. NO NEEDS VOICED.
--- NOTE | 2017-02-22 14:25 | NUR ---
IN THERAPY.GAMA ACTIVITY WELL.
--- NOTE | 2017-02-22 17:38 | NUR ---
PT IS RESTING IN BED FEEDING SELF SUPPER. NO NEEDS VOICED. IMMOBILIZER INTACT TO RLE.
--- NOTE | 2017-02-22 19:40 | NUR ---
PT. IN BED WITH HOB UP FOR COMFORT AND HIS CPM IS ON HIS RLE. PT. REQUESTED TO HAVE CPM REMOVED AND IT WAS WITHOUT ANY PROBLEMS. NO OTHER VOICED NEEDS AT THIS TIME. ASSESSMENT COMPLETED AND HIS CALL LIGHT REMAINS WITHIN REACH.
[2017-02-22 20:00] VITALS: BP 96/61
--- NOTE | 2017-02-22 23:27 | NUR ---
PT. IN BED WITH HOB UP FOR COMFORT. EYES CLOSED AND RESP. EVEN. CALL LIGHT WITHIN REACH.
--- NOTE | 2017-02-23 03:17 | NUR ---
PT. IN BED WITH HOB UP FOR COMFORT WITH EYES CLOSED AND RESP. EVEN. CALL LIGHT WITHIN REACH.
[2017-02-23 08:00] VITALS: BP 163/83
--- NOTE | 2017-02-23 08:00 | NUR ---
PATIENT IS ALERT/OREINT X4. HAS A LEG BRACE ON TO RIGHT LOWER EXTREMITIES. HALF CAST TO RIGHT WRIST. CALL LIGHT WITHIN REACH. VOICES NO NEEDS AT THIS TIME
--- NOTE | 2017-02-23 11:05 | NUR ---
PRN PAIN MEDICATION GIVEN FOR RIGHT KNEE PAIN.
--- NOTE | 2017-02-23 13:00 | NUR ---
CL IN REACH.WILL CONTINUE TO MONITOR.
--- NOTE | 2017-02-23 17:00 | NUR ---
PATIENT HELPED INTO CHAIR WITH HELP OF ONE MAX ASST.
--- NOTE | 2017-02-23 19:40 | NUR ---
PT. SITTING UP IN W/C AND VISITING WITH FRIEND. ASSISTED PT. WITH PLACING RLE ON LEG REST ON W/C. ASSESSMENT COMPLETED. PT. REQUESTING PAIN MED, NAUSEA MED AND MUSCLE RELAXER MEDICATION. CALL LIGHT WITHIN REACH.
[2017-02-23 20:00] VITALS: BP 103/65
--- NOTE | 2017-02-23 23:22 | NUR ---
PT. IN BED WITH HOB UP FOR COMFORT WITH EYES CLOSED AND RESP. EVEN. CALL LIGHT WITHIN REACH.
--- NOTE | 2017-02-24 03:15 | NUR ---
PT. IN BED WITH HOB UP FOR COMFORT. RLE ELEVATED UP ON PILLOW FOR COMFORT. EYES CLOSED AND RESP. DEEP AND EVEN. CALL LIGHT WITHIN REACH.
[2017-02-24 07:00] LABS: BASOPHILS 0.4 % (0-2); EOSINOPHILS 4.9 % (0-7); HEMATOCRIT 30.5 % (42.0-54.0); HEMOGLOBIN 9.8 g/dL (13.5-17.5); IMMATURE GRANULOCYTES 0.4 % (0-5); LYMPHOCYTES 21.1 % (15-50); MCH 28.5 pg (26.0-34.0); MCHC 32.1 g/dL (31.0-37.0); MCV 88.7 fL (80.0-100.0); MEAN PLATELET VOLUME 9.7 fL (7.4-10.4); MONOCYTES 11.5 % (2-11); NEUTROPHILS 61.7 % (40-80); PLATELET COUNT 283 10x3/uL (130-400); RBC 3.44 10x6/uL (4.20-6.10); RDW 14.3 % (11.5-14.5); WBC 6.9 10x3/uL (4.8-10.8)
[2017-02-24 07:33] LABS: ANION GAP 12.5 mmol/L (8-16); CALCIUM 8.6 mg/dL (8.5-10.1); CREATININE - SERUM 1.4 mg/dL (0.6-1.3); POTASSIUM - SERUM 4.5 mmol/L (3.5-5.1)
--- NOTE | 2017-02-24 08:02 | NUR ---
SITTING UP IN BED EATING BREAKFAST. DENIES NEEDS OR C/O. CALL LIGHT IN REACH
[2017-02-24 08:30] VITALS: BP 100/64
--- NOTE | 2017-02-24 09:10 | NUR ---
PRN NORCO AND PRN FLEXERIL GIVEN BEFORE PATIENT GOES TO THERAPY PER PATIENT REQUEST
--- NOTE | 2017-02-24 18:03 | NUR ---
CPM REMOVED FROM RIGHT LEG. PRN NORCO AND FLEXERIL GIVEN FOR MUSCLE CRAMPS AND MUSCLE PAIN.
[2017-02-24 19:26] VITALS: BP 92/60
--- NOTE | 2017-02-24 19:26 | NUR ---
ASSESSMENT PER FLOW SHEET, VS OBTAINED, KNEE BRACE ON AND IN PLACE, LEFT LEG ELEVATED, PT REPORTS FLATUS, NO BM AND USING URINAL WITH NO DIFFICULTY, PT REQUESTS SUPPOSITORY, INFORMED PT THAT I WILL ADM IT WITH 2100 MEDS, PT VERBALIZES UNDERSTANDING, PT REQUESTED AND SERVED FRESH H20, DENIES FURTHER NEEDS, FRIENDS AT BEDSIDE
--- NOTE | 2017-02-24 20:15 | NUR ---
PT VISITING WITH FRIENDS, DENIES NEEDS OR PAIN AT THIS TIME
--- NOTE | 2017-02-24 21:07 | NUR ---
ADM 2100 MEDS PO PER MD ORDERS, SEE EMAR, PT WANTED TO CHANGE KNEE BRACE, KNEE BRACED CHANGED, LEFT LEG ELEVATED, PT REQUESTED AND PROVIDED WARM WASH CLOTHS, EMPTIED 300 MLS OF DARK URINE FROM URINAL, PT DENIES FURTHER NEEDS OR PAIN AT THIS TIME
--- NOTE | 2017-02-24 22:10 | NUR ---
PT CONSULTING TECHNICAL DIRECTOR LIGHT, PT REPORTS NEEDING TO HAVE A BM, PT PLACED ON BED UP, PT INST TO USE CALL LIGHT WHEN FINISHED
--- NOTE | 2017-02-24 22:20 | NUR ---
PT TAX ATTORNEY LIGHT, PT UNABLE TO HAVE A BM, EMPTIED 200 MLS OF DARK YELLOW URINE FROM URINAL, PT REMOVED FROM BED UP, DENIES FURTHER NEEDS AT THIS TIME
--- NOTE | 2017-02-25 00:30 | NUR ---
PT RESTING WITH EYES CLOSED, RESP QUIET, NO DISTRESS NOTED, LEFT UNDISTURBED AT THIS TIME
--- NOTE | 2017-02-25 02:20 | NUR ---
PT RESTING WITH EYES CLOSED, RESP QUIET, NO DISTRESS NOTED, LEFT UNDISTURBED AT THIS TIME
--- NOTE | 2017-02-25 04:05 | NUR ---
PT RESTING WITH EYES CLOSED, RESP QUIET, NO DISTRESS NOTED, LEFT UNDISTURBED AT THIS TIME
--- NOTE | 2017-02-25 05:56 | NUR ---
PT RESTING WITH EYES CLOSED, AROUSES TO SOFT VERBAL STIMULATION, ADM 0600 MED PO PER MD ORDERS, SEE EMAR, EMPTIED URINAL, PT DENIES NEEDS OR PAIN AT THIS TIME
--- NOTE | 2017-02-25 07:00 | NUR ---
SHIFT REPORT TO DAY SHIFT
[2017-02-25 08:14] VITALS: BP 102/70
--- NOTE | 2017-02-25 09:00 | NUR ---
PRN DUCOLAX SUPP GIVEN FOR NO BOWEL MOVEMENT IN THREE DAYS. PATIENT HAS ACTIVE BOWEL SOUNDS.
--- NOTE | 2017-02-25 09:29 | NUR ---
PATIENT IS ALERT/ORIENT X4. MICHAEL WRAP AND LEG BRACE ON TO RIGHT LEG. SOFT CAST ON RIGHT WRIST. PRN NORCO AND PRN FLEXERIL GIVEN FOR RIGHT LEG PAIN. PATIENT HAS CALL LIGHT WITHIN REACH.
--- NOTE | 2017-02-25 11:00 | NUR ---
PATIENT WORKING WITH OCCUPATIONAL THERAPIST GETTING A SHOWER.
--- NOTE | 2017-02-25 14:08 | NUR ---
PATIENT WORKING WITH PHYSICAL THERAPIST. DENIES ANY PAIN/DISC AT THIS TIME.
--- NOTE | 2017-02-25 15:23 | NUR ---
NUTRITION MONITORING & EVAL CHART REVIEWED. PT IN THERAPY. TOLERATING REG DIET, PO INTAKE ~ 50% RECENT MEALS. NO RECENT BM RECORDED. NOTE MIRALAX AND SUPPOSITORY. RD FOLLOWING
--- NOTE | 2017-02-25 15:27 | NUR ---
PATIENT LYING IN BED WITH CMP ON RIGHT LEG
--- NOTE | 2017-02-25 17:23 | NUR ---
CMP REMOVED SO PATIENT COULD EAT SUPPER. PRN PAIN MEDICATION AND PRN FLEXERIL GIVEN FOR RIGHT LEG PAIN AND LEG CRAMPS.
--- NOTE | 2017-02-25 18:48 | NUR ---
RESTING QUIETLY IN BED. DENIES NEEDS OR C/O. CALL LIGHT IN REACH
[2017-02-25 19:45] VITALS: BP 93/66
--- NOTE | 2017-02-25 19:45 | NUR ---
ASSESSMENT PER FLOW SHEET, VS OBTAINED, MICHAEL WRAP WITH KNEE BRACE ON RIGHT LEG INTACT, ELEVATED ON PILLOW, PT REPORTS FLATUS, BM TODAY AND VOIDING WITH NO DIFFICULTY, PT RATES RIGHT LEG PAIN 2/10, STATES "IT FEELS BETTER SINCE I TOOK THAT PAIN MEDICINE", PT REQUESTED AND SERVED FRESH H20, PT DENIES FURTHER NEEDS, FRIENDS AT BEDSIDE
--- NOTE | 2017-02-25 20:35 | NUR ---
PT VISITING WITH FRIENDS, ADM 2100 MEDS PER MD ORDERS, SEE EMAR, PT DENIES NEEDS AT THIS TIME
--- NOTE | 2017-02-25 21:35 | NUR ---
PT WATCHING TV, DENIES NEEDS AT THIS TIME
--- NOTE | 2017-02-25 22:24 | NUR ---
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
--- NOTE | 2017-02-26 00:04 | NUR ---
PT RESTING WITH EYES CLOSED, RESP QUIET, NO DISTRESS NOTED, LEFT UNDISTURBED AT THIS TIME
--- NOTE | 2017-02-26 02:32 | NUR ---
PT RESTING WITH EYES CLOSED, RESP QUIET, NO DISTRESS NOTED, LEFT UNDISTURBED AT THIS TIME
--- NOTE | 2017-02-26 04:20 | NUR ---
PT RESTING WITH EYES CLOSED, RESP QUIET, NO DISTRESS NOTED, LEFT UNDISTURBED AT THIS TIME
--- NOTE | 2017-02-26 05:29 | NUR ---
PT RODEO RIDER LIGHT, PT C/O KNEE PAIN, ADM PROTONIX, NORCO AND FLEXERIL PO PER MD ORDERS, EMPTIED URINAL, PT REQUESTED AND PROVIDED WET WARM WASH CLOTH AND APPLE SAUCE, PT DENIES FURTHER NEEDS
[2017-02-26 05:34] LABS: BASOPHILS 0.2 % (0-2); EOSINOPHILS 4.4 % (0-7); HEMATOCRIT 29.8 % (42.0-54.0); HEMOGLOBIN 9.8 g/dL (13.5-17.5); IMMATURE GRANULOCYTES 0.4 % (0-5); LYMPHOCYTES 25.9 % (15-50); MCH 28.9 pg (26.0-34.0); MCHC 32.9 g/dL (31.0-37.0); MCV 87.9 fL (80.0-100.0); MEAN PLATELET VOLUME 9.3 fL (7.4-10.4); MONOCYTES 10.3 % (2-11); NEUTROPHILS 58.8 % (40-80); PLATELET COUNT 273 10x3/uL (130-400); RBC 3.39 10x6/uL (4.20-6.10); RDW 14.2 % (11.5-14.5); WBC 5.6 10x3/uL (4.8-10.8)
--- NOTE | 2017-02-26 06:30 | NUR ---
PT AWAKE, RATES PAIN 1/10, DENIES NEEDS AT THIS TIME
--- NOTE | 2017-02-26 07:00 | NUR ---
SHIFT REPORT TO DAY SHIFT
--- NOTE | 2017-02-26 07:20 | NUR ---
REPORT RECEIVED FROM YACHT MASTER NURSE. CALL LIGHT IN REACH.
[2017-02-26 08:27] VITALS: BP 94/60
--- NOTE | 2017-02-26 09:19 | NUR ---
ASSESSMENT COMPLETED. NORCO PO WITH AM MEDS ADMINISTERED. CALL LIGHT IN REACH. WILL CONTINUE WITH PLAN OF CARE.
--- NOTE | 2017-02-26 10:03 | NUR ---
IN HALLWAY RIDING AROUND IN . STATES PAIN IS A 4 AT THIS TIME.
--- NOTE | 2017-02-26 11:25 | NUR ---
PT IN THERAPY TOLERATING WELL, DENIES NEEDS. WCTM.
--- NOTE | 2017-02-26 13:58 | NUR ---
NORCO PO PRIOR TO THERAPY.
--- NOTE | 2017-02-26 15:14 | NUR ---
PAIN IS NOW DOWN TO A 3.
--- NOTE | 2017-02-26 16:15 | NUR ---
OLFFERED DULCOLAX SUPPOSITORY SEVERAL TIMES TODAY BUT PATIENT HAS CONTINUED TO SAY HE WILL LET ME KNOW WHEN HE IS READY. HE IS NOW ON THE CPM. STAFF STATES PATIENT HAD A LARGE BM YESTERDAY.
--- NOTE | 2017-02-26 16:27 | NUR ---
CARE TEAM MEETING: TENATIVE DISCHARGE DATE IS 03/07/17. AT THIS TIME PLANS ARE FOR PATIENT TO DISCHARGE TO A SKILLED FACILITY , POSSIBLE [facility]. WILL CONTINUE TO FOLLOW WITH PATIENT AND WILL RA AT NEXT MEETING.
--- NOTE | 2017-02-26 18:13 | NUR ---
CPM OFF. NORCO PO. NO CHANGES IN INITIAL ASSESSMENT. CALL LIGHT IN REACH. WILL CONTINUE WITH PLAN OF CARE.
--- NOTE | 2017-02-26 19:30 | NUR ---
PT. IN BED WITH HOB UP FOR COMFORT AND VISITING WITH FRIENDS. ASSESSMENT COMPLETED. MICHAEL WRAP TO RIGHT KNEE AND INSTRUCTED PT. ON ANKLE PUMPING TO HELP DECREASE EDEMA HE HAS IN HIS RLE/FOOT. NO VOICED NEEDS AT THIS TIME AND HIS CALL LIGHT IS WITHIN REACH.
[2017-02-26 20:15] VITALS: BP 99/66
--- NOTE | 2017-02-26 23:17 | NUR ---
PT. IN BED WITH HOB UP FOR COMFORT WITH EYES CLOSED AND RESP. EVEN. RLE ELEVATED UP ON 2 PILLOWS. CALL LIGHT WITHIN REACH.
--- NOTE | 2017-02-27 03:11 | NUR ---
PT. IN BED WITH HOB UP FOR COMFORT WITH EYES CLOSED AND RESP. DEEP AND EVEN. CALL LIGHT WITHIN REACH. RLE REMAINS ELEVATED ON 2 PILLOWS.
--- NOTE | 2017-02-27 08:00 | NUR ---
SHIFT ASSMT COMPLETED.DENIES NEEDS.SITTING UP IN BED.BREAKFAST GIVEN.
[2017-02-27 09:45] VITALS: BP 93/66
--- NOTE | 2017-02-27 12:00 | NUR ---
RESTING QUIETLY.CL IN REACH.
--- NOTE | 2017-02-27 16:00 | NUR ---
RESTING QUIETLY.CL IN REACH.
[2017-02-27 20:05] VITALS: BP 111/75
--- NOTE | 2017-02-27 20:05 | NUR ---
PT RECEIVED SITTING UP IN BED AAOX3 VISITING WITH FAMILY AND WATCHING TV AT THIS TIME. PT REQUESTS MEDICATION FOR PAIN. ADMINISTERED NORCO PO PER ORDERS AT THIS TIME FOR PAIN PT RATES 5. ASSESSMENT COMPLETED PER FLOW SHEET. EMPTIED 200 CC FROM URINAL AT THIS TIME. PT DENIES NEEDS. BED LOW. PHONE AND CALL LIGHT IN REACH. SRX2.
--- NOTE | 2017-02-27 21:31 | NUR ---
PM MEDS GIVEN AT THIS TIME. PT REQUESTS ICE CREAM AND ICE WATER. DENIES OTHER NEEDS. EMPTIED APPROX 200 CC FROM URINAL AT THIS TIME. BED LOW. PHONE AND CALL LIGHT IN REACH. SRX2.
--- NOTE | 2017-02-27 22:22 | NUR ---
PT RESTING QUIETLY AT THIS TIME WITH EYES CLOSED. RESPIRATIONS EVEN, NON-LABORED. NO ACUTE DISTRESS NOTED AT THIS TIME. BED LOW. PHONE AND CALL LIGHT IN REACH. SRX2.
--- NOTE | 2017-02-28 04:05 | NUR ---
PT RESTING QUIETLY IN BED AT THIS TIME WITH EYES CLOSED. RESPIRATIONS EVEN, NON-LABORED. NO ACUTE DISTRESS NOTED AT THIS TIME. BED LOW. PHONE AND CALL LIGHT IN REACH. SRX2.
[2017-02-28 07:30] VITALS: BP 102/66
--- NOTE | 2017-02-28 07:38 | NUR ---
RESTING QUIETLY IN BED. NO S/S DISTRESS. CALL LIGHT IN REACH
--- NOTE | 2017-02-28 08:00 | NUR ---
ASSISTED WITH SET UP OF BREAKFAST AND SITTING UP IN BED. DENIES ANY PAIN OR NEEDS. CALL LIGHT IN REACH. WILL CONTINUE TO MONITOR
--- NOTE | 2017-02-28 09:30 | NUR ---
ASSISTED WITH TRANSFER FROM BED TO W/C. OFFERS NO COMPLAINTS. CALL LIGHT IN REACH. WILL CONTINUE TO MONITOR
--- NOTE | 2017-02-28 12:30 | NUR ---
IN GYM WITH OCCUPATIONAL THERAPY.
--- NOTE | 2017-02-28 15:30 | NUR ---
CAME TO NURSES STATION C/O PAIN IN RIGHT KNEE 01/04 ADMINISTERED NORCO PER PT REQUEST. NO OTHER NEEDS VOICED
--- NOTE | 2017-02-28 17:22 | NUR ---
SITTING UP IN BED EATING DINNER. CPM STILL ON WILL REMOVE AT 1900. NO S/SX OF DISTRESS. CALL LIGHT IN REACH. WILL CONTINUE TO MONITOR
--- NOTE | 2017-02-28 19:07 | NUR ---
SITTING UP IN BED WITH VISITORS AT BEDSIDE. PLEASANT AND TALKATIVE. EATING DINNER. DENIES ANY PAIN AT THIS TIME.
--- NOTE | 2017-02-28 21:08 | NUR ---
UP IN BED WITH VISITORS AT BEDSIDE. TALKATIVE AND SMILING. SOFT CAST TO LEFT FOREARM AND HAS 3 FINGERS TAPED. STATES IT REMINDS HIM NOT TO USE THAT HAND. DENIES ANY PAIN. CALL LANDY PAYNE OVERBED TABLE IN REACH.
[2017-02-28 22:22] VITALS: BP 115/80
--- NOTE | 2017-02-28 23:55 | NUR ---
ANSWERED CALL LIGHT AND REQUESTED DOOR BE SHUT. STATED HAVING HARD TIME SLEEPING WITH IT OPEN. JACINDA ANY PAIN AT THIS TIME. HEAD OF BED ELEVATED AND CALL LIGHT AND OVERBED TABLE IN REACH.
--- NOTE | 2017-03-01 07:45 | NUR ---
LYING IN BED RESTING. OFFERS NO COMPLAINTS. NO S/SX OF DISTRESS. CALL LIGHT IN REACH. WILL CONTINUE TO MONITOR
[2017-03-01 08:00] VITALS: BP 128/76
--- NOTE | 2017-03-01 11:30 | NUR ---
IN GYM WITH PHYSICAL THERAPY.
--- NOTE | 2017-03-01 16:00 | NUR ---
ASSISTED PT WITH SHOWER AND GETTING DRESSED. PT SITTING UP IN WC. NO S/SX OF DISTRESS. CALL LIGHT IN REACH. WILL CONTINUE TO MONTIOR
--- NOTE | 2017-03-01 18:19 | NUR ---
RESTING QUIETLY IN BED. NO S/S DISTRESS. CALL LIGHT IN REACH.
--- NOTE | 2017-03-01 21:45 | NUR ---
assisted staff with removing cpm machine, pt tolerated well, propped leg according to pt request on wedge and pillows. visitor present.
[2017-03-02 04:40] VITALS: BP 102/72
--- NOTE | 2017-03-02 06:58 | NUR ---
RESTING QUIETLY IN BED. NO S/S DISTRESS. CALL LIGHT IN REACH
--- NOTE | 2017-03-02 07:20 | NUR ---
LYING IN BED EYES CLOSED RESTING. EASILY AROUSED WITH VERBAL STIMULI. CALL LIGHT IN REACH. WILL CONTINUE TO MONITOR.
[2017-03-02 08:00] VITALS: BP 114/75
--- NOTE | 2017-03-02 18:32 | NUR ---
SITTING IN THERAPY GYM. OFFERS NO COMPLAINTS.
--- NOTE | 2017-03-02 19:25 | NUR ---
IN BED, EYES CLOSED. NO DISTRESS EVIDENT.
--- NOTE | 2017-03-02 23:30 | NUR ---
FRIENDS TALK TO PT IN BED SIDE.
[2017-03-03 00:22] VITALS: BP 120/64
--- NOTE | 2017-03-03 00:36 | NUR ---
REST IN BED QUIETLY, EYE CLOSE, CALL LIGHT WITHIN REACH.
[2017-03-03 05:35] LABS: BASOPHILS 0.5 % (0-2); EOSINOPHILS 6.6 % (0-7); HEMATOCRIT 30.6 % (42.0-54.0); HEMOGLOBIN 9.9 g/dL (13.5-17.5); IMMATURE GRANULOCYTES 0.3 % (0-5); LYMPHOCYTES 26.7 % (15-50); MCH 28.6 pg (26.0-34.0); MCHC 32.4 g/dL (31.0-37.0); MCV 88.4 fL (80.0-100.0); MEAN PLATELET VOLUME 8.9 fL (7.4-10.4); MONOCYTES 7.9 % (2-11); PLATELET COUNT 258 10x3/uL (130-400); RBC 3.46 10x6/uL (4.20-6.10); RDW 14.2 % (11.5-14.5); WBC 5.9 10x3/uL (4.8-10.8)
[2017-03-03 05:50] LABS: ANION GAP 11.1 mmol/L (8-16); CALCIUM 8.8 mg/dL (8.5-10.1); CARBON DIOXIDE 30.5 mmol/L (21.0-32.0); CREATININE - SERUM 1.4 mg/dL (0.6-1.3); POTASSIUM - SERUM 4.6 mmol/L (3.5-5.1)
--- NOTE | 2017-03-03 07:17 | NUR ---
RESTING QUIETLY IN BED. NO S/S DISTRESS. CALL LIGHT IN REACH
--- NOTE | 2017-03-03 08:25 | NUR ---
PT AM MEDS ADMINSTERED. PT DENIES NEEDS. WCTM.
[2017-03-03 08:44] VITALS: BP 99/68
--- NOTE | 2017-03-03 10:30 | NUR ---
PT SITTING UP AT SINK BRUSHING HIS TEETH. PT DENEIS NEEDS. WCTM.
--- NOTE | 2017-03-03 15:08 | NUR ---
PT SITTING UP IN WC, DENIES NEEDS. WCTM.
[2017-03-03 19:21] VITALS: BP 116/76
--- NOTE | 2017-03-03 19:41 | NUR ---
PT IS RESTING IN BED VISITING WITH 2 VISITORS. ALERT AND ORIENTED X 4. DENIES ACUTE DISCOMFORT AT THIS TIME. CAST IS CDI TO LEFT ARM. IMMOBILIZER IS ON RIGHT LEG. PT DENIES ANY NEEDS AT THIS TIME. SR'S ARE UP X 2 IN BED. CALL LIGHT AND BEDSIDE TABLE ARE WITHIN EASY REACH.
--- NOTE | 2017-03-03 21:17 | NUR ---
PT RESTING IN BED WATCHING TV. NO NEEDS VOICED. LIGHTS OUT FOR THE NIGHT AT THIS TIME.
--- NOTE | 2017-03-03 21:30 | NUR ---
DELIVERED PATIENT'S MENU TO BE COMPLETED. DENIES NEEDS.
--- NOTE | 2017-03-03 23:42 | NUR ---
RESTING QUIETLY IN BED WITH EYES CLOSED. NO ACUTE DISTRESS NOTED.
--- NOTE | 2017-03-04 04:21 | NUR ---
RESTING IN BED WITH EYES CLOSED.
[2017-03-04 08:00] VITALS: BP 111/79
--- NOTE | 2017-03-04 08:00 | NUR ---
SHIFT ASSMT COMPLETED.DENIES NEEDS.
--- NOTE | 2017-03-04 15:38 | NUR ---
NUTRITION MONITORING & EVAL CHART REVIEWED, PT TOLERATING REG DIET WITH GOOD INTAKE RECENT MEALS. RECENT BM RECORDED. WILL CONTINUE TO PROVIDE DIET, MONITOR PO INTAKE. RD FOLLOWING
--- NOTE | 2017-03-04 16:00 | NUR ---
CPM ON AND GAMA WELL.
[2017-03-04 19:30] VITALS: BP 104/71
--- NOTE | 2017-03-04 19:30 | NUR ---
PT IS RESTING QUIETLY IN BED WITH EYES CLOSED. AWAKENS EASILY TO VERBAL STIMULI. PT IS ALERT AND ORIENTED X 4. DENIES ACUTE DISCOMFORT AT THIS TIME. CAST TO LEFT LOWER ARM IS CDI. RIGHT LEG IMMOBILIZED. PT DENIES ANY NEEDS AT THIS TIME. SR'S ARE UP X 3 IN BED. CALL LIGHT AND BEDSIDE TABLE ARE WITHIN EASY REACH.
--- NOTE | 2017-03-04 21:30 | NUR ---
PT IS RESTING IN BED WATCHING TV. NO NEEDS VOICED.
--- NOTE | 2017-03-05 00:01 | NUR ---
RESTING IN BED WITH EYES CLOSED.
--- NOTE | 2017-03-05 01:40 | NUR ---
PATIENT IN BED, EYES CLOSED. APPEARS COMFORTABLE.
--- NOTE | 2017-03-05 03:00 | NUR ---
PT RESTING IN BED WITH EYES CLOSED. NO DISTRESS NOTED.
[2017-03-05 05:56] LABS: BASOPHILS 0.5 % (0-2); EOSINOPHILS 4.9 % (0-7); HEMATOCRIT 32.1 % (42.0-54.0); HEMOGLOBIN 10.3 g/dL (13.5-17.5); IMMATURE GRANULOCYTES 0.2 % (0-5); LYMPHOCYTES 24.7 % (15-50); MCH 28.2 pg (26.0-34.0); MCHC 32.1 g/dL (31.0-37.0); MCV 87.9 fL (80.0-100.0); MEAN PLATELET VOLUME 9.2 fL (7.4-10.4); MONOCYTES 9.2 % (2-11); NEUTROPHILS 60.5 % (40-80); PLATELET COUNT 282 10x3/uL (130-400); RBC 3.65 10x6/uL (4.20-6.10); RDW 14.3 % (11.5-14.5); WBC 6.1 10x3/uL (4.8-10.8)
--- NOTE | 2017-03-05 06:19 | NUR ---
PT AWOKE EASILY TO VERBAL STIMULI. DENIES NEEDS.
[2017-03-05 06:24] LABS: ANION GAP 12.8 mmol/L (8-16); CALCIUM 9.1 mg/dL (8.5-10.1); CARBON DIOXIDE 29.5 mmol/L (21.0-32.0); CREATININE - SERUM 1.3 mg/dL (0.6-1.3); POTASSIUM - SERUM 4.3 mmol/L (3.5-5.1)
--- NOTE | 2017-03-05 08:00 | NUR ---
SHIFT ASSMT COMPLETED.IMMOBILIZER IN PLACE.
[2017-03-05 08:14] VITALS: BP 112/75
--- NOTE | 2017-03-05 16:00 | NUR ---
IN BED,CPM ON.
--- NOTE | 2017-03-05 19:45 | NUR ---
PT OUT OF ROOM AT THIS TIME
--- NOTE | 2017-03-05 20:23 | NUR ---
PT TO VEHICLE BODY MAKER VIA WC, REQUESTS PAIN MED, PT REPORTS SITTING IN BREAK ROOM IN THERAPY ROOM VISITING WITH A FRIEND, INFORMED PT THAT I WILL GET HIS MEDS TOGETHER AND BE DOWN THERE SHORTLY TO ADM, PT VERBALIZES UNDERSTANDING, DENIES FURTHER NEEDS
[2017-03-05 21:04] VITALS: BP 117/88
--- NOTE | 2017-03-05 21:04 | NUR ---
PT BACK TO ROOM, SITTING UP IN WC, ASSESSMENT PER FLOW SHEET, VS OBTAINED, MICHAEL WRAP AND IMMOBILIZER ON RIGHT LEG IN PLACE, SOFT CAST TO LEFT ARM/HAND, PT REPORTS FLATUS, PT REPORTS HE IS GOING TO TRY AND HAVE A BM, PT INST TO USE CALL LIGHT IN BR FOR ANY ASSISTANCE, ADM 2100 MEDS AND MOTRIN FOR PAIN, PT REQUESTS NOT TO TAKE NORCO AT THIS TIME, PT REQUESTED AND PROVIDED FLUSHABLE WIPES, DENIES FURTHER NEEDS
--- NOTE | 2017-03-05 22:00 | NUR ---
PT SAMPLE MAKER HAND LIGHT, PT OUT OF BR, ASSISTED PT BACK TO BED, ELEVATED LEGS PER REQUEST, IMMOBILIZER REMOVED, LOTION APPLIED TO FEET, WARM WASH CLOTH PROVIDED TO WASH FACE, PT DENIES FURTHER NEEDS OR PAIN AT THIS TIME
--- NOTE | 2017-03-06 00:39 | NUR ---
PT RESTING WITH EYES CLOSED, RESP QUIET, NO DISTRESS NOTED, LEFT UNDISTURBED AT THIS TIME
--- NOTE | 2017-03-06 02:39 | NUR ---
PT RESTING WITH EYES CLOSED, RESP QUIET, NO DISTRESS NOTED, LEFT UNDISTURBED AT THIS TIME, BED IN LOW POSITION, SIDE RAILS X 2, CALL LIGHT IN REACH
--- NOTE | 2017-03-06 04:17 | NUR ---
PT RESTING WITH EYES CLOSED, RESP QUIET, NO DISTRESS NOTED, LEFT UNDISTURBED AT THIS TIME
--- NOTE | 2017-03-06 06:07 | NUR ---
PROTONIX PO PER ORDERS GIVEN AT THIS TIME. PT DENIES NEEDS. EMPTIED APPROX 275 CC FROM URINAL AT THIS TIME. BED LOW. PHONE AND CALL LIGHT IN REACH. SRX2.
--- NOTE | 2017-03-06 07:00 | NUR ---
SHFIT REPORT TO DAY SHIFT
--- NOTE | 2017-03-06 07:35 | NUR ---
RESTING QUIETLY IN BED. NO S/S DISTRESS OR NEEDS. CALL LIGHT IN REACH
--- NOTE | 2017-03-06 08:00 | NUR ---
SITTING UP IN BED ASSISTED WITH BREAKFAST SETUP. OFFERS NO COMPLAINTS. CALL LIGHT IN REACH. WILL CONTINUE TO MONITOR
[2017-03-06 08:16] VITALS: BP 112/67
--- NOTE | 2017-03-06 10:48 | NUR ---
sitting up in wc watching tv. pleasant affect. offers no complaints. call light in reach. will continue to monitor
--- NOTE | 2017-03-06 12:15 | NUR ---
PER PATIENT REQUEST REFERRAL HAS BEEN FAXED TO [facility] FOR POSSIBLE ADMISSION ON 03/07/17. WILL CONTINUE TO FOLLOW WITH PATIENT.
--- NOTE | 2017-03-06 15:42 | NUR ---
LYING IN BED SUPINE EYES CLOSED RESTING QUIELTY. APPROPRIATE RISE AND FALL OF CHEST. EASILY AROUSED WITH STIMULI. CALL LIGHT IN REACH. WILL CONTINUE TO MONITOR.
--- NOTE | 2017-03-06 17:17 | NUR ---
ASSISTED PT WITH REMOVING CPM, FRIENDS AT BEDSIDE. OFFERS NO COMPLAINTS. DENIES ANY PAIN. CALL LIGHT IN REACH. WILL CONTINUE TO MONITOR
--- NOTE | 2017-03-06 19:50 | NUR ---
PT SITTING IN ACTIVITY ROOM AT TABLE VISITING WITH FAMILY. NO NEEDS NOTED AT THIS TIME.
[2017-03-06 20:56] VITALS: BP 121/80
--- NOTE | 2017-03-06 20:56 | NUR ---
PT RECEIVED SITTING UP IN WHEELCHAIR WATCHING TV AT THIS TIME. VITAL SIGNS TAKEN. ASSESSMENT COMPLETED PER FLOW SHEET AT THIS TIME AND PM MEDS GIVEN. PT ALSO REQUESTS MOTRIN FOR PAIN PT RATES 5/10. DENIES OTHER NEEDS. BED LOW. PHONE AND CALL LIGHT IN REACH. SRX2.
--- NOTE | 2017-03-06 22:17 | NUR ---
REASSESSED PTS PAIN. PT RATES PAIN /10. DENIES NEEDS. BED LOW. PHONE AND CALL LIGHT IN REACH. SRX2.
--- NOTE | 2017-03-07 03:25 | NUR ---
EMPTIED 500 CC FROM URINAL AT THIS TIME. PT DENIES NEEDS. BED LOW. PHONE AND CALL LIGHT IN REACH. SRX2.
--- NOTE | 2017-03-07 05:07 | NUR ---
PROTONIX PO GIVEN PER ORDERS AT THIS TIME. PT DENIES NEEDS. BED LOW. PHONE AND CALL LIGHT IN REACH. SRX2.
--- NOTE | 2017-03-07 07:13 | NUR ---
RESTING QUIETLY IN BED. EYES CLOSED. NO S/S DISTRESS OR NEEDS. CALL LIGHT IN REACH.
[2017-03-07 08:03] LABS: BASOPHILS 0.4 % (0-2); HEMATOCRIT 31.7 % (42.0-54.0); HEMOGLOBIN 10.2 g/dL (13.5-17.5); LYMPHOCYTES 23.6 % (15-50); MCH 28.4 pg (26.0-34.0); MCHC 32.2 g/dL (31.0-37.0); MCV 88.3 fL (80.0-100.0); MEAN PLATELET VOLUME 9.2 fL (7.4-10.4); MONOCYTES 6.4 % (2-11); NEUTROPHILS 65.6 % (40-80); PLATELET COUNT 284 10x3/uL (130-400); RBC 3.59 10x6/uL (4.20-6.10); RDW 14.4 % (11.5-14.5); WBC 5.5 10x3/uL (4.8-10.8)
[2017-03-07 08:04] VITALS: BP 116/80
[2017-03-07 08:36] LABS: ANION GAP 9.8 mmol/L (8-16); CARBON DIOXIDE 31.4 mmol/L (21.0-32.0); CREATININE - SERUM 1.5 mg/dL (0.6-1.3); POTASSIUM - SERUM 4.2 mmol/L (3.5-5.1)
[2017-03-07] MEDS ORDERED: ELIQUIS5 MG PO (08:55)
[2017-03-07] MEDS ORDERED: HYDROCODON-ACE1 EAC7 PO (08:56)
--- NOTE | 2017-03-07 09:17 | NUR ---
PATIENT DISCHARGING TO [facility]. [facility] WILL TRANSPORT PATIENT TO FACILITY. NO DME OR HOME HEALTH NEEDED AT THIS TIME. DR. HAMPTON APPOINTMENT WILL BE MADE AT TIME OF DISCHARGE FROM FACILITY. DR. FERNÁNDEZ/ MORGAN 03/24/17 @ 1:30. PATIENT CHOICE FORM FOR SNF AND [facility] FORM SIGNED, EXPLAINED AND FILED IN CHART.
--- NOTE | 2017-03-07 12:15 | NUR ---
SITTING IN W/C WAITING ON [facility] TRANSPORT TO PICK HIM UP AND TAKE HIM TO [facility]. REPORT ALREADY CALLED TO JOSE. HE IS PACKED WITH ALL HIS PERSONAL BELONGINGS. HE DENIES NEEDS OR QUESTIONS.
--- NOTE | 2017-03-07 15:28 | NUR ---
D/C TO HALF-WAY VIA W/C AND TRANSPORT [facility]AN. HE TOOK ALL PERSONAL BELONGINGS WITH HIM. D/C PAPERWORK AND HARD SCRIPT FOR PAIN MEDS SENT WITH LICENSED MIDWIFE. HE DENIED QUESTIONS OR NEEDS AT TIME OF D/C.
== END 2017-03-07 15:15 | DRG 559 ==
LOC: D.REHAB 20:15
PROVIDERS: Family Medicine; ADMIT Emergency Medicine
DX: Z47.89 Encounter for other orthopedic aftercare (principal); I26.99 Other pulmonary embolism without acute cor pulmonale; I82.403 Acute embolism and thrombosis of unspecified deep veins of lower extremity, bilateral; N17.9 Acute kidney failure, unspecified; S89.91XD Unspecified injury of right lower leg, subsequent encounter; V89.2XXD Person injured in unspecified motor-vehicle accident, traffic, subsequent encounter; I10 Essential (primary) hypertension; D72.829 Elevated white blood cell count, unspecified; R06.00 Dyspnea, unspecified; R53.1 Weakness

== ENCOUNTER 2017-04-18 13:39 | Inpatient (IN) | payer MEDICARE, BC ==
[~2017-04-18] VITALS: Ht 175.3 cm; Wt 86.4 kg
--- NOTE | 2017-04-18 16:40 | NUR ---
PT ADMITTED TO FLOOR, ESCORTED BY HOSPITAL STAFF VIA WHEELCHAIR.
[2017-04-18] MEDS ORDERED: FLORANEX / LACT1 TAB (17:00)
[2017-04-18] MEDS ORDERED: ELIQUIS TAB 5MG (17:01)
[2017-04-18 17:02] VITALS: BP 131/79; Ht 175.3 cm; Wt 86.4 kg
--- NOTE | 2017-04-18 17:44 | NUR ---
L FOREARM IV SITED, X 1 ATTEMPT, PT TOLERATED WITH MINIMAL DISCOMFORT.
[2017-04-18 19:51] LABS: BASOPHILS 0.5 % (0-2); EOSINOPHILS 3.1 % (0-7); HEMATOCRIT 37.9 % (42.0-54.0); HEMOGLOBIN 12.3 g/dL (13.5-17.5); IMMATURE GRANULOCYTES 0.2 % (0-5); LYMPHOCYTES 17.8 % (15-50); MCH 28.5 pg (26.0-34.0); MCHC 32.5 g/dL (31.0-37.0); MCV 87.7 fL (80.0-100.0); MEAN PLATELET VOLUME 9.8 fL (7.4-10.4); MONOCYTES 7.2 % (2-11); NEUTROPHILS 71.2 % (40-80); PLATELET COUNT 329 10x3/uL (130-400); RBC 4.32 10x6/uL (4.20-6.10); RDW 14.6 % (11.5-14.5); WBC 9.3 10x3/uL (4.8-10.8)
[2017-04-18 20:00] VITALS: BP 123/76
[2017-04-18 20:02] LABS: APTT 27.3 SECONDS (22.8-39.4); INR 1.08 (0.85-1.17); PROTIME 13.8 SECONDS (11.6-15.0)
[2017-04-18 20:13] LABS: ANION GAP 15.8 mmol/L (8-16); CALCIUM 9.4 mg/dL (8.5-10.1); CARBON DIOXIDE 22.5 mmol/L (21.0-32.0); CREATININE - SERUM 1.5 mg/dL (0.6-1.3); POTASSIUM - SERUM 4.3 mmol/L (3.5-5.1)
--- NOTE | 2017-04-18 20:30 | NUR ---
ALERT,ORIENTED. IV INFUSING TO LEFT FOREARM WITHOUT REDNESS OR EDEMA NOTED LLE WITH EDEMA AND REDNESS NOTED. NO COMPLIANTS AT PRESENT. CL IN REACH.
[2017-04-19 00:08] VITALS: BP 121/71
--- NOTE | 2017-04-19 02:28 | NUR ---
ASSESSED, PT IS ASLEEP WITH EASY RESPIRATIONS AND NO DISTRESS NOTED. HIS URINAL IS AT THE BEDSIDE. THE RAILS ARE UP X'S 2 WITH THE CALL LIGHT AT HAND.
[2017-04-19 04:00] VITALS: BP 131/77
[2017-04-19] MEDS ORDERED: CYCLOBENZAPRINE10 MG PO (04:11)
[2017-04-19] MEDS ORDERED: IBUPROFEN200 MG PO (04:12)
[2017-04-19] MEDS ORDERED: PROTONIX40 MG PO (04:14)
--- NOTE | 2017-04-19 05:40 | NUR ---
RESTING QUIETLY. NO DISTRESS NOTED. CL IN REACH.
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
[2017-04-19 08:03] VITALS: BP 117/81
[2017-04-19 12:42] VITALS: BP 136/83
--- NOTE | 2017-04-19 16:13 | NUR ---
RESTING QUIETLY IN BED. C/O SOME GASTRIC REFLUX. WILL NOTIFY HIS NURSE. DENIES NEEDS. VOIDING CLEAR YELLOW URINE IN URINAL.
[2017-04-19 16:16] VITALS: BP 129/86
[2017-04-19 18:36] VITALS: BP 127/86
--- NOTE | 2017-04-19 20:30 | NUR ---
PATIENT RESTING IN BED WITH GUEST AT BEDSIDE AND DENIES NEEDS AT THIS TIME. BED IN LOWEST POSITION AND CALL LIGHT WITHIN REACH. ASSESSMENT COMPLETED AND MEDS ADMINISTERED PER ORDERS. ENCOURAGED THE PT TO CALL IF HE HAS NEEDS
--- NOTE | 2017-04-19 22:11 | NUR ---
PATIENT REQUESTED THAT HE NOT BE DISTURBED FOR 4AM VITALS
[2017-04-20] VITALS: BP 127/77
[2017-04-20 08:35] VITALS: BP 126/94
[2017-04-20 12:51] VITALS: BP 137/86
[2017-04-20 16:06] VITALS: BP 124/81
[2017-04-20 20:00] VITALS: BP 112/78
--- NOTE | 2017-04-20 20:07 | NUR ---
PATIENT RESTING IN BED AND DENIES NEEDS AT THIS TIME. BED IN LOWEST POSITION AND CALL LIGHT WITHIN REACH. PATIENT STATED HE IS GETTING NO PAIN RELIEF FROM TYLENOL AND RATES HIS PAIN 7/10. PATIENT DENIES WANTING OTHER PAIN MEDS AT THIS TIME. BED IN LOWEST POSITION AND CALL LIGHT WITHIN REACH. ENCOURAGED THE PATIENT TO CALL IF HE HAS NEEDS.
--- NOTE | 2017-04-21 07:45 | NUR ---
ASSESSMENT PER FLOW SHEET.PT WITHUT DISTRESS.DENIES NEEDS AT PRESENT.COFFEE PROVIDED PER PT REQUEST.CALL LIGHT IN REACH
[2017-04-21 08:57] VITALS: BP 119/80
--- NOTE | 2017-04-21 12:00 | NUR ---
COFFEE PROVIDED AGAIN,STATES HE HASNT HAD BM.MONITOR FOR NEEDS
[2017-04-21 12:56] VITALS: BP 117/81
--- NOTE | 2017-04-21 16:10 | NUR ---
REMAINS WITHOUT NEEDS.STILL COMPLAINS OF RLE STIFNESS AND DISCOMFORT.MONITOR FOR NEEDS
[2017-04-21 16:53] VITALS: BP 114/80
--- NOTE | 2017-04-21 19:25 | NUR ---
PATIENT RESTING IN BED WITH NO VISIBLE SIGNS OF DISTRESS. BROUGHT PATIENT ICECREAM PER HIS REQUEST. PATIENT DENIES OTHER NEEDS AT THIS TIME. BED IN LOWEST POSITION AND CALL LIGHT WITHIN REACH. ENCOURAGED THE PATIENT TO CALL IF HE HAS NEEDS.
[2017-04-21 20:00] VITALS: BP 112/84
[2017-04-22 04:00] VITALS: BP 118/85
--- NOTE | 2017-04-22 07:40 | NUR ---
A&O, DENIES NEEDS, BED LOWEST POSITON, REQUESTING SHOWER, CALL LIGHT IN REACH, WILL CONTINUE TO MONITOR
[2017-04-22 08:29] VITALS: BP 132/85
[2017-04-22 09:05] LABS: HEMATOCRIT 40.1 % (42.0-54.0); HEMOGLOBIN 12.9 g/dL (13.5-17.5); MCH 28.4 pg (26.0-34.0); MCHC 32.2 g/dL (31.0-37.0); MCV 88.3 fL (80.0-100.0); MEAN PLATELET VOLUME 9.9 fL (7.4-10.4); RBC 4.54 10x6/uL (4.20-6.10); RDW 14.4 % (11.5-14.5); WBC 6.3 10x3/uL (4.8-10.8)
[2017-04-22 09:27] LABS: INR 0.99 (0.85-1.17)
[2017-04-22 11:30] VITALS: BP 114/76
--- NOTE | 2017-04-22 12:56 | NUR ---
Patient Name: GABE LOWE Admission Status: Elective Accout number: [id number] Admission Date: 04-18-2017 : 1955 Admission Diagnosis:ACUTE EMBOLISM AND THROMBOSIS OF RIGHT FEMORAL VEIN Attending: CHAVA FERNÁNDEZ Current LOS: 4 Anticipated DC Date: Planned Disposition: Home with Home Health Primary Insurance: MEDICARE PART A ONLY Discharge Planning Comments: CM met with patient to assess discharge planning needs. Patient stated that he lives independently at home alone. He states that his "friend" will pick him up at discharge. Patient has a flight of stairs in his home and has a walker, cane, and wheelchair. Patient does not use home health, but will be set up with [facility] at discharge. CM will continue to follow and assist with discharge planning needs. PCP: Jacob Fernandez on [facility] Manager Area: Chelly Conn * Is the patient Alert and Oriented? Yes 0 * How many steps to enter\\exit or inside your home? 1 flight 0 * PCP jacob 0 * Pharmacy [facility] 0 * Preadmission Environment Home Alone 0 * ADLs Independent 0 * Equipment Cane Walker Wheelchair 0 * List name and contact numbers for known caregivers / representatives who currently or will assist patient after discharge: "friend" 0 * Community resources currently utilized None 0 * Additional services required to return to the preadmission environment? Yes 0 * Can the patient safely return to the preadmission environment? Yes 0 * Has this patient been hospitalized within the prior 30 days at any hospital? No 0 Grand Total: 0
[2017-04-22] MEDS ORDERED: LOVENOX INJ100 MG/ML SC (13:01)
[2017-04-22] MEDS ORDERED: COUMADIN5 MG PO (13:01)
--- NOTE | 2017-04-22 13:11 | NUR ---
REFERRAL SENT TO [facility]
--- NOTE | 2017-04-22 13:55 | NUR ---
ORDERED PRESCRIPTIONS CALLED TO [facility]
--- NOTE | 2017-04-22 14:29 | NUR ---
REPORT RECIEVED ASSUMED CARE. PATIENT IN BED WITH NO COMPLAINTS. IV INTACT. CALL LIGHT WITHIN REACH.
--- NOTE | 2017-04-22 16:00 | NUR ---
PATIENT IV REMOVED WITH CATH TIP INTACT. PATIENT BEING DISCHARGED AFTER LOVENOX SHOT TONIGHT.
[2017-04-22 16:27] VITALS: BP 133/85
--- NOTE | 2017-04-22 20:48 | NUR ---
PATIENT D/C'D VIA WHEELCHAIR BY [facility] DURBIN. REVIEWED ALL D/C EDUCATION WITH PT INCLUDING MEDICATIONS AND DR. MURRAY. PATIENT DENIES OTHER QUESTIONS AT THIS TIME. PT HAD NO VISIBLE SIGNS OF DISTRESS UPON D/C.
[2017-04-23 13:18] LABS: LUPUS - INTERPRETATION Comment: (()); LUPUS - THROMBIN TIME 19.7 sec (0.0-23.0); LUPUS - dRVVT 31.1 sec (0.0-47.0); PTT-LA 37.6 sec (0.0-51.9)
[2017-04-24 18:10] LABS: FACTOR II DNA ANALYSIS Negative (())
== END 2017-04-22 22:37 | disposition home health service (06) | DRG 301 ==
LOC: D.US 13:39 → D.MS 16:11
PROVIDERS: Internal Medicine Hematology & Oncology; ADMIT Orthopaedic Surgery
DX: I82.411 Acute embolism and thrombosis of right femoral vein (principal); I82.441 Acute embolism and thrombosis of right tibial vein; I10 Essential (primary) hypertension; K21.9 Gastro-esophageal reflux disease without esophagitis; E53.8 Deficiency of other specified B group vitamins; H40.9 Unspecified glaucoma; G89.29 Other chronic pain

== ENCOUNTER → 2017-06-27 10:35 | Outpatient (CLI) | payer BC ==
[2017-04-18 17:02] VITALS: BMI 28.1
[~2017-06-27 10:35] MED LIST changes: +COUMADIN5 MG PO; +ELIQUIS TAB 5MG; +FLORANEX / LACT1 TAB
== END | disposition home or self-care (01) ==
LOC: D.MRI 10:35
DX: M23.611 Other spontaneous disruption of anterior cruciate ligament of right knee (principal)

== ENCOUNTER → 2017-07-07 13:52 | Outpatient (CLI) | payer BC ==
[2017-04-18 17:02] VITALS: BMI 28.1
== END | disposition home or self-care (01) ==
LOC: D.US 13:52
DX: R22.41 Localized swelling, mass and lump, right lower limb (principal); M79.604 Pain in right leg

== ENCOUNTER → 2017-10-02 07:51 | Outpatient (CLI) | payer BC ==
[2017-04-18 17:02] VITALS: BMI 28.1
[~2017-10-02 07:51] MED LIST changes: +BACTRIM DS TABL1 TAB PO; +COUMADIN7.5 MG PO; +ILOTYCIN1 GM LEFT EYE; +PREDNISONE50 MG
== END | disposition home or self-care (01) ==
LOC: D.CT 07:51
DX: M79.604 Pain in right leg (principal)

== ENCOUNTER 2017-10-10 08:31 | Outpatient (CLI) | payer BC, MEDICARE ==
[~2017-10-10] VITALS: Ht 175.3 cm; Wt 90.9 kg
--- NOTE | ~2017-10-10 | HEMODYNAMI ---
PATIENT:GABE LOWE MEDICAL RECORD: [id number] : 53 LOCATION:[facility] ADMISSION DATE: 10/10/17 Generatedon:10/10/201714:01 Patient name: GABE LOWE Patient #: [id number] SSN: : 1955 Date of study: 10/10/2017 Page: Of Hemodynamic Procedure Report Patient Data Patient Demographics Procedure consent was obtained First Name: GABE Gender: Male Last Name: CHRISSY : 1955 [facility] Initial: MICHELE Age: 62 year(s) Patient #: [id number] Race: Unknown Additional ID: [id number] Contact details Address: [address] [address] State: [place] City: [place] Zip code: [address] Past Medical History Allergies Allergen Reaction Date Comments Reported Iodine 10/10/2017 Admission Admission Data Admission Date: 10/10/2017 Admission Time: 8:31 Procedure Procedure Types Cath Procedure Peripheral Cath Diagnostic Procedure Cath Peripheral Abd/Extremity Extremities Bilat Lower Extremity Procedure Description Procedure Date Procedure Date: 10/10/2017 Procedure Start Time: 12:19 Procedure Staff Name Function Noman Cerna MD Performing Physician Nemo Gallardo RT Internal Audit Manager Donna Mcgovern RN Nurse Adams Gotti RN Nurse Ganesh Lane RT Scrub Procedure Data Cath Procedure Fluoroscopy Diagnostic fluoroscopy Total fluoroscopy Time: time: 16.8 min 16.8 min Diagnostic fluoroscopy Total fluoroscopy dose: dose: 2363 mGy 2363 mGy Contrast Material Contrast Material Type Amount (ml) Isovue 300 345 Entry Location Entry Primary Successful Side Size Upsize Upsize Entry Closure Succes sful Closure Location (Fr) 1 (Fr) 2 (Fr) Remarks Device Remarks Femoral Left 5 Fr artery Femoral Left Exoseal artery Procedure Medications Medication Administration Route Dosage Heparin Flush Bag added to field 3 bags (1000units/500ml NS) Oxygen NC 3 l/min Lidocaine 1% 20 Versed I.V. 1 mg Fentanyl I.V. 50 mcg Benadryl I.V. 25 mg Versed I.V. 1 mg Fentanyl I.V. 50 mcg Versed I.V. 1 mg Versed I.V. 1 mg Hemodynamics Rest Heart Rate: 76 (bpm) Snapshots Pre Cath Intra NCS Post Cath Vital Signs Time Heart Resp SPO2 etCO2 NIBP (mmHg) Rhythm Pain Sedation Rate (ipm) (%) (mmHg) Status Level (bpm) 11:54:19 91 17 97 0 No Cuff NSR 0 (11) 10(A) , No pain 11:57:13 78 16 98 36.5 135/87(119) NSR 0 (11) 10(A) , No pain 12:01:27 76 12 98 32.1 138/87(118) NSR 0 (11) 10(A) , No pain 12:05:37 74 12 98 34.3 131/82(106) NSR 0 (11) 10(A) , No pain 12:09:47 74 12 98 37.3 137/88(108) NSR 0 (11) 10(A) , No pain 12:13:59 82 16 97 37.2 142/83(103) NSR 0 (11) 10(A) , No pain 12:18:11 91 18 97 38 124/88(106) NSR 0 (11) 10(A) , No pain 12:22:16 90 20 98 23.9 135/95(105) NSR 0 (11) 9(A) , No pain 12:26:24 86 19 97 38 124/88(104) NSR 0 (11) 9(A) , No pain 12:30:34 90 10 97 41.1 132/86(105) NSR 0 (11) 9(A) , No pain 12:34:52 93 12 96 37.3 124/83(102) NSR 0 (11) 9(A) , No pain 12:39:02 92 12 96 23.8 121/86(99) NSR 0 (11) 8(A) , No pain 12:43:10 89 12 96 28.3 111/80(95) NSR 0 (11) 8(A) , No pain 12:47:16 90 16 96 35.8 124/80(93) NSR 0 (11) 8(A) , No pain 12:51:21 89 14 96 35 118/86(98) NSR 0 (11) 8(A) , No pain 12:55:29 91 13 97 33.5 119/80(98) NSR 0 (11) 8(A) , No pain 12:59:37 92 19 96 33.5 122/83(97) NSR 0 (11) 8(A) , No pain 13:03:47 85 13 96 34.3 116/77(89) NSR 0 (11) 8(A) , No pain 13:07:53 93 13 96 34.3 120/83(96) NSR 0 (11) 8(A) , No pain 13:12:03 84 14 96 34.3 120/80(95) NSR 0 (11) 8(A) , No pain 13:16:15 68 13 96 26.8 114/73(88) NSR 0 (11) 8(A) , No pain 13:20:22 85 20 96 35 117/77(90) NSR 0 (11) 8(A) , No pain 13:24:30 70 21 95 35 124/79(96) NSR 0 (11) 8(A) , No pain 13:28:38 65 25 96 33.5 123/79(102) NSR 0 (11) 8(A) , No pain 13:32:46 83 17 96 33.5 124/87(97) NSR 0 (11) 8(A) , No pain 13:36:52 86 11 96 31.2 127/93(106) NSR 0 (11) 8(A) , No pain 13:41:00 89 5 98 35.7 145/93(119) NSR 0 (11) 8(A) , No pain 13:45:55 85 16 97 35.7 166/101(130) NSR 0 (11) 8(A) , No pain 13:50:08 86 36 99 35 134/85(113) NSR 0 (11) 8(A) , No pain 13:54:20 87 17 99 29 134/88(111) NSR 0 (11) 8(A) , No pain 13:58:28 67 22 98 23.8 124/94(109) NSR 0 (11) 8(A) , No pain Medications Time Medication Route Dose Verified Delivered Reason Notes Effe ctiveness by by 11:29:07 Heparin Flush added 3 Adams Noman used for Bag to bags Ana María Cerna MD procedure (1000units/500ml field RN NS) 11:29:32 Oxygen NC 3 Adams Adams used for l/min Ana María Gotti pool hand RN 11:29:52 Lidocaine 1% 20ml Adams Noman for local vial Ana María Cerna MD anesthetic RN 12:20:13 Versed I.V. 1 mg Noman Gottliebr for Ana María Cerna RN sedation 12:20:24 Fentanyl I.V. 50 Noman Adams for mcg Ana María Cerna RN sedation 12:20:37 Benadryl I.V. 25 mg Noman Gottliebr Ana María Cerna RN, MD 12:24:06 Versed I.V. 1 mg Noman Gottliebr for Ana María Cerna RN sedation 12:24:13 Fentanyl I.V. 50 Noman Adams for mcg Ana María Cerna RN sedation 12:32:14 Versed I.V. 1 mg Noman Gottliebr for Ana María Cerna RN sedation 12:56:01 Versed I.V. 1 mg Noman Gottliebr for Ana María Cerna RN sedation Procedure Log Time Note 11:27:33 Time tracking: Regular hours 11:28:13 Use device set IR Diagnostic 11:28:15 Sterile Angiographic Pack opened to sterile field. 11:28:18 Bag Decanter (2002S) opened to sterile field. 11:28:19 ACIST Manifold (34447) opened to sterile field. 11:28:20 ACIST Hand Control (37281) opened to sterile field. 11:28:21 ACIST Syringe (66305) opened to sterile field. 11:28:22 DOC .035 wire (G95228) opened to sterile field. 11:28:23 LOYD 260 wire (J93281) opened to sterile field. 11:28:24 SHEATH 5FR [place] (IJV654) opened to sterile field. 11:28:25 Angiodynamics Omniflush 5Fr 65cm (64927842) opened to sterile field. 11:28:26 Micropuncture VSI 4FR kit opened to sterile field. 11:28:36 TUBING Contrast Injection High Pressure (NSW336W) opened to sterile field. 11:29:07 Heparin Flush Bag (1000units/500ml NS) 3 bags added to field was administered by Noman Cerna MD; used for procedure; 11:29:32 Oxygen 3 l/min NC was administered by Adams Gotti RN; used for procedure; 11:29:52 Lidocaine 1% 20ml vial was administered by Noman Cerna MD; for local anesthetic; 11:46:05 Plan of Care:Hemodynamics will remain stable., Cardiac rhythm will remain stable., Comfort level will be maintained., Respiratory function will remain adequate., Patient/ family verbilizes understanding of procedure., Procedure tolerated without complication., Recovers from procedure without complications.. 11:46:46 Patient received from Outpatients to IR Alert and oriented. Tansferred to table in Supine position. 11:46:52 Correct patient and procedure confirmed by team. 11:46:57 Signed procedure consent form obtained from patient. 11:47:07 H&P Date Dictated: 10/10/2017 Within 30 days and on chart.. 11:47:09 Pre-procedure instructions explained to patient. 11:47:10 Pre-op teaching completed and patient verbalized understanding. 11:47:13 Family in waiting room. 11:47:16 Patient NPO since Midnight. 11:47:24 Patient allergic to Iodine 11:47:28 Is the patient allergic to Iodine/contrast media? Yes. 11:47:36 Was the patient premedicated? Yes 11:47:42 Is patient on blood thinner?Yes 11:47:49 ACC The patient was administered the following blood thiners within the last 24 hours: ACCLovenox 11:47:52 Patient diabetic? No. 11:47:55 - 11:47:57 ----Pre-sedation anethsthesia assessment.---- 11:48:02 Previous problem with sedation/anesthesia? No ? 11:48:05 Snore? No 11:48:07 Sleep apnea? No 11:48:18 Deviated septum? No 11:48:20 Opens mouth fully? Yes 11:48:22 Sticks out tongue? Yes 11:48:24 Airway obstruction? No ? 11:48:29 Dentures? No ? 11:48:31 - 11:48:39 Pre procedure: right dorsailis pedis pulse Doppler 11:48:44 Pre procedure: left dorsailis pedis pulse Doppler 11:48:48 Pre procedure: right posterior tibial pulse Doppler 11:48:55 Pre procedure: left posterior tibial pulse Doppler 11:49:09 IV patent on arrival in left wrist with D5/.45%NaCl at O. 11:53:29 Vital chart was started 11:56:22 ECG and BP/O2 sat monitors applied to patient. 11:56:24 Baseline sample Acquired. 11:56:25 Full Disclosure recording started 11:56:26 - 11:56:38 Right groin area was prepped with chlora-prep and draped in sterile fashion 11:56:43 Left groin area was prepped with chlora-prep and draped in sterile fashion 12:18:07 Physician arrived 12:18:10 --------ALL STOP TIME OUT------ 12:18:11 Final Timeout: patient, procedure, and site verified with staff and physician. All members of the team are in agreement. 12:19:14 Sedation plan: IV Moderate Sedation Medication:Versed, Fentanyl 12:19:20 Procedure started. 12:19:26 Local anesthetic to left femerol artery with Lidocaine 1% by Noman Cerna MD.INITIAL ACCESS ONLY 12:20:13 Versed 1 mg I.V. was administered by Adams Gotti RN; for sedation; 12:20:24 Fentanyl 50 mcg I.V. was administered by Adams Gotti RN; for sedation ; 12:20:30 Arterial access obtained using ultrasound guidance. 12:20:37 Benadryl 25 mg I.V. was administered by Adams Gotti RN; ; 12:24:06 Versed 1 mg I.V. was administered by Adams Gotti RN; for sedation; 12:24:13 Fentanyl 50 mcg I.V. was administered by Adams Gotti RN; for sedation ; 12:24:17 A 5 Fr sheath was inserted into the Left Femoral artery 12:27:39 GLIDE WIRE ANGLE 260cm (JQ2106) opened to sterile field. 12:27:53 TORQUE DEVICE PLASTIC .038 ( TD01) opened to sterile field. 12:29:41 GLIDE CATHETER 5FR ANGLED 100cm (CG508) opened to sterile field. 12:32:14 Versed 1 mg I.V. was administered by Adams Gotti RN; for sedation; 12:37:22 Angiography was performed. 12:56:01 Versed 1 mg I.V. was administered by Adams Gotti RN; for sedation; 13:57:15 A sheath was inserted into the Left Femoral artery 13:57:15 Sheath removed intact; hemostasis achieved with Exoseal to the Left Femoral artery. 13:57:34 EXOSEAL 5Fr (EX500) opened to sterile field. 13:57:40 Procedure ended.(Physican Out) 13:57:52 Fluoroscopy time 16.80 minutes. 13:57:59 Fluoroscopy dose: 2363 mGy 13:57:59 Flurop Dose total: 2363 13:58:23 Contrast amount:Isovue 300 345ml. 13:58:30 Procedure and supply charges have been captured, reviewed, submitted an d are correct. 14:01:01 Post Procedure Pulses reassessed and unchanged 14:01:31 Report given to Outpatients. 14:01:50 Vital chart was stopped Device Usage Item Name Manufacture Quantity Catalog Hospital Part Current Minim al Lot# / Number Charge Number Stock Stock Serial# Code Sterile Cardinal 1 [id number] 122616 5 Angiographic Health Pack Bag Decanter Microtek 1 203085 76877 375528 5 () Medical Inc. ACIST Acist Medical 1 53874 873726 353745 243758 5 StormPins Inc (01112) ACIST Hand Acist Medical 1 33907 958700 211160 690326 5 Control Systems Inc (30277) ACIST Syringe Acist Medical 1 45449 629186 949946 412129 20 (27503) Systems Inc DOC .035 wire [employer] 1 P53739 034339 251759 5 3570061 (R22819) LOYD 260 [employer] 1 Y21784 787421 491103 5 8123833 wire (T94390) SHEATH 5FR Terumo 1 HLJ718 201846 336703 899302 40 [place] (UNW230) Angiodynamics Angiodynamics 1 [id number] 997546 337532 925440 5 Omniflush 5Fr 65cm (39218425) Micropuncture VSI VASCULAR 1 7266V 330429 298070 5 VSI 4FR kit SOLUTIONS TUBING [facility] 1 [id number] 006311 739298 211852 5 Contrast Injection High Pressure (WIV725E) GLIDE WIRE Terumo 1 OI7034 586593 017313 472526 5 ANGLE 260cm (UA6220) TORQUE DEVICE Frakes 1 TD01 284963 229194 338960 5 PLASTIC .038 Scientific ( TD01) GLIDE Terumo 1 CG508 348616 85733 126475 4 CATHETER 5FR ANGLED 100cm (CG508) EXOSEAL 5Fr Cardinal 1 EX500 763877 873264 866288 10 (EX500) Health Signature Audit [place] Stage Time Signature Unsigned Intra-Procedure 10/10/2017 Nemo Gallardo 2:01:48 PM RT(R) [facility] [address] [place] [address]
[~2017-10-10 08:31] MED LIST changes: -BACTRIM DS TABL1 TAB PO; -COUMADIN7.5 MG PO; -ILOTYCIN1 GM LEFT EYE; -PREDNISONE50 MG
[2017-10-10] MEDS ORDERED: PREDNISONE50 MG (09:22)
[2017-10-10 09:34] LABS: BASOPHILS 0 % (0-2); EOSINOPHILS 0 % (0-7); HEMATOCRIT 45.1 % (42.0-54.0); HEMOGLOBIN 15.2 g/dL (13.5-17.5); IMMATURE GRANULOCYTES 0.2 % (0-5); LYMPHOCYTES 8.8 % (15-50); MCH 28.8 pg (26.0-34.0); MCHC 33.7 g/dL (31.0-37.0); MCV 85.6 fL (80.0-100.0); MEAN PLATELET VOLUME 10.7 fL (7.4-10.4); MONOCYTES 0.5 % (2-11); NEUTROPHILS 90.5 % (40-80); PLATELET COUNT 263 10x3/uL (130-400); RBC 5.27 10x6/uL (4.20-6.10); RDW 14.6 % (11.5-14.5); WBC 10.7 10x3/uL (4.8-10.8)
[2017-10-10 09:47] LABS: ANION GAP 13.4 mmol/L (8-16); CALCIUM 9.6 mg/dL (8.5-10.1); CARBON DIOXIDE 24.4 mmol/L (21.0-32.0); CREATININE - SERUM 1.3 mg/dL (0.6-1.3); POTASSIUM - SERUM 4.8 mmol/L (3.5-5.1)
[2017-10-10 09:50] VITALS: BP 130/89; Ht 175.3 cm; Wt 90.9 kg
[2017-10-10 09:50] LABS: APTT 28.2 SECONDS (22.8-39.4); INR 1.15 (0.85-1.17); PROTIME 14.3 SECONDS (11.6-15.0)
[2017-12-30] MEDS ORDERED: COUMADIN7.5 MG PO (15:39)
== END 2017-10-10 17:30 | disposition home or self-care (01) ==
LOC: D.OPS 08:31 → D.SP 11:00 → D.OPS 11:00
PROVIDERS: General Practice
DX: I77.0 Arteriovenous fistula, acquired (principal); I73.9 Peripheral vascular disease, unspecified; I10 Essential (primary) hypertension; Z87.891 Personal history of nicotine dependence; Z01.812 Encounter for preprocedural laboratory examination

== ENCOUNTER 2017-10-23 09:13 | Outpatient (CLI) | payer BC ==
[~2017-10-23] VITALS: Ht 175.3 cm; Wt 88.6 kg
--- NOTE | ~2017-10-23 | HEMODYNAMI ---
PATIENT:GABE LOWE MEDICAL RECORD: [id number] : 53 LOCATION:[facility] ADMISSION DATE: 10/23/17 Generatedon:10/23/201716:02 Patient name: GABE LOWE Patient #: [id number] SSN: : 1955 Date of study: 10/23/2017 Page: Of Hemodynamic Procedure Report Patient Data Patient Demographics Procedure consent was obtained First Name: GABE Gender: Male Last Name: CHRISSY : 1955 [place] Initial: MIHCELE Age: 62 year(s) Patient #: [id number] Race: Unknown Additional ID: [id number] Contact details Address: [place] [address] State: [place] City: [place] Zip code: [address] Past Medical History Allergies Allergen Reaction Date Comments Reported Iodine 10/10/2017 Admission Admission Data Admission Date: 10/23/2017 Admission Time: 9:13 Procedure Procedure Types Cath Procedure Peripheral Cath Diagnostic Procedure Cath Peripheral Abd/Extremity Extremities Right Lower Ext Arterio Procedure Description Procedure Date Procedure Date: 10/23/2017 Procedure Start Time: 13:18 Procedure Staff Name Function Noman Cerna MD Performing Physician Nemo Gallardo RT Bonded Structures Repairer Nemo Gallardo RT Monitor Donna Mcgovern RN Nurse Ana María Lamas RN Nurse Ganesh Lane RT Scrub Procedure Data Cath Procedure Fluoroscopy Diagnostic fluoroscopy Total fluoroscopy Time: time: 45.6 min 45.6 min Diagnostic fluoroscopy Total fluoroscopy dose: 864 dose: 864 mGy mGy Contrast Material Contrast Material Type Amount (ml) Isovue 300 350 Entry Location Entry Primary Successful Side Size Upsize Upsize Entry Closure Succes sful Closure Location (Fr) 1 (Fr) 2 (Fr) Remarks Device Remarks Femoral Left Exoseal artery Procedure Medications Medication Administration Route Dosage Heparin Bolus I.V. 3000 units Lidocaine 1% added to field 20 Heparin Flush Bag added to field 4 (1000units/500ml NS) Hemodynamics Rest Pre Cath Intra NCS Post Cath Medications Time Medication Route Dose Verified Delivered Reason Notes Effecti veness by by 15:34:24 Heparin Bolus I.V. 3000 Noman Gotti units Adams Cerna RN, MD 15:35:38 Lidocaine 1% added 20ml Noman Tineo to vial Eryn Cerna MD field MD 15:35:56 Heparin Flush added 4 Noman Tineo Bag to BAGS Eryn Cerna MD (1000units/500ml field SHANKAR NS) Procedure Log Time Note 12:01:44 Use device set IR Diagnostic 12:22:23 Sterile Angiographic Pack opened to sterile field. 12:22:24 Bag Decanter (2002S) opened to sterile field. 12:22:24 ACIST Manifold (48672) opened to sterile field. 12:22:26 ACIST Hand Control (85144) opened to sterile field. 12:22:27 ACIST Syringe (56648) opened to sterile field. 12:23:00 Micropuncture VSI 4FR kit opened to sterile field. 12:23:01 DOC .035 wire (P30541) opened to sterile field. 12:23:02 SHEATH 5FR [place] (UOC546) opened to sterile field. 12:23:03 LOYD 260 wire (K42992) opened to sterile field. 12:23:08 - 12:23:10 Time tracking: Regular hours 12:23:48 TUBING Contrast Injection High Pressure (IIY655Q) opened to sterile field. 12:24:07 Plan of Care:Hemodynamics will remain stable., Cardiac rhythm will remain stable., Comfort level will be maintained., Respiratory function will remain adequate., Patient/ family verbilizes understanding of procedure., Procedure tolerated without complication., Recovers from procedure without complications.. 12:24:17 Correct patient and procedure confirmed by team. 12:24:19 Signed procedure consent form obtained from patient. 12:24:26 H&P Date Dictated: 10/23/2017 Within 30 days and on chart.. 12:24:29 Pre-procedure instructions explained to patient. 12:24:30 Pre-op teaching completed and patient verbalized understanding. 12:24:31 Pre-op teaching completed and patient verbalized understanding. 12:24:36 Family in waiting room. 12:24:39 Patient NPO since Midnight. 12::49 Is the patient allergic to Iodine/contrast media? Yes. 12::52 Was the patient premedicated? Yes 12:25:09 Is patient on blood thinner?Yes 12:25:19 ACC The patient was administered the following blood thiners, Coumadin, stopped on friday. 12:26:12 Patient diabetic? No. 12:26:22 - 12:26:23 ----Pre-sedation anethsthesia assessment.---- 12::26 Previous problem with sedation/anesthesia? No ? 12::31 Snore? Yes 12:26:33 Sleep apnea? No 12:26:35 Deviated septum? No 12:26:37 Opens mouth fully? Yes 12:26:39 Sticks out tongue? Yes 12::55 Airway obstruction? No ? 12:27:00 Dentures? No ? 12:27:02 - 12:27:25 see anesthesia notes for monitoring of patinet during procedure 12:27:42 IV patent on arrival in left wrist with D5/.45%NaCl at [facility]. 12::49 Right groin area was prepped with chlora-prep and draped in sterile fashion 12:34:54 Pre procedure: right dorsailis pedis pulse Doppler 12:34:58 Pre procedure: left dorsailis pedis pulse Doppler 12:35:02 Pre procedure: right posterior tibial pulse Doppler 12:35:07 Pre procedure: left posterior tibial pulse Doppler 12:35:51 - 13:09:34 SHEATH 6FR [place] (RSR01) opened to sterile field. 13:11:59 Physician arrived 13:14:46 Angiodynamics Omniflush 5Fr 65cm (91237641) opened to sterile field. 13:15:10 --------ALL STOP TIME OUT------ 13:15:11 Final Timeout: patient, procedure, and site verified with staff and physician. All members of the team are in agreement. 13:16:38 Procedure started. 13:16:38 Full Disclosure recording started 13:18:14 Local anesthetic to left femerol artery with Lidocaine 1% by Noman Cerna MD.INITIAL ACCESS ONLY 13:18:20 Arterial access obtained using ultrasound guidance. 13:18:30 SHEATH 5FR [place] (COQ843) opened to sterile field. 13:28:15 AMPLATZ Super stiff 180cm wire ([id number]) opened to sterile field. 13:28:27 TORQUE DEVICE PLASTIC .038 ( TD01) opened to sterile field. 13:28:36 GLIDE WIRE ANGLE 260cm (RH9946) opened to sterile field. 13:28:37 GLIDE CATHETER 5FR ANGLED 65cm (CG507) opened to sterile field. 13:37:07 Cook MILLICENT 1 6FR. Guide sheath opened to sterile field. 13:51:40 BENTSON 260cm .035 wire (V72025) opened to sterile field. 13:53:19 GLIDE WIRE Angled Super Stiff 180cm (NW9679) opened to sterile field. 14:45:22 GLIDE CATHETER 5FR ANGLED 100cm (CG508) opened to sterile field. 15:02:40 Pernell 5Fr OTW embolectomy catheter opened to sterile field. 15:05:26 SHEATH 6FR [place] (EOF461) opened to sterile field. 15:17:18 INFLATOR BasixTOUCH (FZ2106) opened to sterile field. 15:19:01 an evercross balloon was used. 5x120 15:26:13 an evercross balloon was use 5x40 15:34:24 Heparin Bolus 3000 units I.V. was administered by Ana María Lamas RN; ; 15:35:38 Lidocaine 1% 20ml vial added to field was administered by Noman Cerna MD; ; 15:35:56 Heparin Flush Bag (1000units/500ml NS) 4 BAGS added to field was administered by Noman Cerna MD; ; 15:46:50 SHEATH 6FR [place] (JAB629) opened to sterile field. 15:54:49 EXOSEAL 6Fr (EX600) opened to sterile field. 15:55:08 A sheath was inserted into the Left Femoral artery 15:55:08 Sheath removed intact; hemostasis achieved with Exoseal to the Left Femoral artery. 15:55:11 Procedure ended.(Physican Out) 15:56:00 Fluoroscopy time 45.60 minutes. 15:56:13 Fluoroscopy dose: 864 mGy 15:56:13 Flurop Dose total: 864 15:56:45 Contrast amount:Isovue 300 350ml. 15:56:49 Procedure and supply charges have been captured, reviewed, submitted an d are correct. 16:01:07 Report given to Outpatients. Device Usage Item Name Manufacture Quantity Catalog Hospital Part Current Mini mal Lot# / Number Charge Number Stock Stock Serial# Code Sterile Cardinal 1 [id number] 906539 5 Angiographic Health Pack Bag Decanter Microtek 1 816281 70575 414403 5 () Medical Inc. ACIST Acist Medical 1 82678 976275 189100 552946 5 Manifold Systems Inc (72299) ACIST Hand Acist Medical 1 26228 668444 022517 203869 5 Control Systems Inc (91770) ACIST Syringe Acist Medical 1 81198 633140 110532 799900 20 (86826) Systems Inc Micropuncture VSI VASCULAR 1 7266V 066999 510369 5 VSI 4FR kit SOLUTIONS DOC .035 wire [employer] 1 F20594 945048 675707 5 6084703 (C87762) SHEATH 5FR Terumo 2 JOR095 651098 991773 190402 40 [place] (XAG690) LOYD 260 [employer] 1 X54267 372504 994190 5 7396931 wire (U48219) TUBING [facility] Medical 1 [id number] 266500 090637 662196 5 Contrast Injection High Pressure (MWC846O) SHEATH 6FR Terumo 1 RSR01 107182 93610 599073 5 Destination (RSR01) Angiodynamics Angiodynamics 1 50518504 245102 463105 364667 5 Omniflush 5Fr 65cm (57318434) AMPLATZ Super [place] 1 [id number] 577941 833772 5 stiff 180cm Scientific wire ([id number]) TORQUE DEVICE [place] 1 TD01 680902 005485 759889 5 PLASTIC .038 Scientific ( TD01) GLIDE WIRE Terumo 1 JX1230 471237 716348 991919 5 ANGLE 260cm (VF0205) GLIDE Terumo 1 CG507 286186 920860 5 CATHETER 5FR ANGLED 65cm (CG507) Cook MILLICENT 1 [facility] 1 Z59513 786923 046500 5 6FR. Guide sheath BENTSON 260cm Cook [facility] 1 R53514 507644 584384 411554 4 7866273 .035 wire (W05388) GLIDE WIRE Terumo 1 UF5760 687872 989789 5 Angled Super Stiff 180cm (TP2294) GLIDE Terumo 1 CG508 346670 34247 763348 4 CATHETER 5FR ANGLED 100cm (CG508) Pernell 5Fr Bautista 1 [id number] 225794 397924 639762 5 OT Lifesciences embolectomy catheter SHEATH 6FR Terumo 2 QLZ957 551293 265051 326706 40 [place] (OEX746) INFLATOR [facility] 1 LQ4332 411955 348917 779367 5 BasixTOUCH (RC6756) EXOSEAL 6Fr Cardinal 1 EX600 668810 867723 923681 10 (EX600) Health Signature Audit [place] Stage Time Signature Unsigned Intra-Procedure 10/23/2017 Nemo Gallardo 4:02:47 PM RT(R) Signatures Monitor : Nemo Gallardo RT Signature : Date : Time : [facility] [address] [place] [address]
[~2017-10-23 09:13] MED LIST changes: +PREDNISONE50 MG
[2017-10-23 10:23] VITALS: BP 120/81; Ht 175.3 cm; Wt 88.6 kg
[2017-10-23 11:13] LABS: BASOPHILS 0 % (0-2); EOSINOPHILS 0 % (0-7); HEMATOCRIT 42.4 % (42.0-54.0); HEMOGLOBIN 14.4 g/dL (13.5-17.5); IMMATURE GRANULOCYTES 0.1 % (0-5); LYMPHOCYTES 6.1 % (15-50); MCH 29.1 pg (26.0-34.0); MCV 85.8 fL (80.0-100.0); MEAN PLATELET VOLUME 10.3 fL (7.4-10.4); MONOCYTES 0.6 % (2-11); NEUTROPHILS 93.2 % (40-80); PLATELET COUNT 262 10x3/uL (130-400); RBC 4.94 10x6/uL (4.20-6.10); RDW 14.5 % (11.5-14.5); WBC 10.2 10x3/uL (4.8-10.8)
[2017-10-23 11:24] LABS: INR 1.09 (0.85-1.17); PROTIME 13.7 SECONDS (11.6-15.0)
[2017-10-23 12:27] LABS: ANION GAP 17.3 mmol/L (8-16); CALCIUM 9.1 mg/dL (8.5-10.1); CARBON DIOXIDE 24.5 mmol/L (21.0-32.0); CREATININE - SERUM 1.3 mg/dL (0.6-1.3); POTASSIUM - SERUM 4.8 mmol/L (3.5-5.1)
[2017-12-30] MEDS ORDERED: COUMADIN7.5 MG PO (15:39)
== END 2017-10-23 19:35 | disposition home or self-care (01) ==
LOC: D.SP 09:13
PROVIDERS: General Practice
DX: I77.0 Arteriovenous fistula, acquired (principal); I73.9 Peripheral vascular disease, unspecified; I10 Essential (primary) hypertension; K21.9 Gastro-esophageal reflux disease without esophagitis; Z01.812 Encounter for preprocedural laboratory examination

== ENCOUNTER → 2017-10-24 09:55 | Outpatient (CLI) | payer BC ==
[2017-10-23 10:23] VITALS: BMI 28.8
[~2017-10-24 09:55] MED LIST changes: +BACTRIM DS TABL1 TAB PO; +COUMADIN7.5 MG PO; +ILOTYCIN1 GM LEFT EYE
[2017-10-24 10:58] LABS: ANION GAP 13.3 mmol/L (8-16); CALCIUM 8.3 mg/dL (8.5-10.1); CARBON DIOXIDE 28.1 mmol/L (21.0-32.0); CREATININE - SERUM 1.4 mg/dL (0.6-1.3); POTASSIUM - SERUM 4.4 mmol/L (3.5-5.1)
== END | disposition home or self-care (01) ==
LOC: D.LAB 09:55
PROVIDERS: General Practice
DX: N17.9 Acute kidney failure, unspecified (principal)

== ENCOUNTER → 2017-10-27 09:22 | Outpatient (CLI) | payer BC ==
[2017-10-23 10:23] VITALS: BMI 28.8
[2017-10-27 09:58] LABS: ANION GAP 9.1 mmol/L (8-16); CARBON DIOXIDE 29.1 mmol/L (21.0-32.0); CREATININE - SERUM 1.3 mg/dL (0.6-1.3); POTASSIUM - SERUM 4.2 mmol/L (3.5-5.1)
== END | disposition home or self-care (01) ==
LOC: D.LAB 09:22
PROVIDERS: General Practice
DX: N17.9 Acute kidney failure, unspecified (principal)

== ENCOUNTER → 2017-12-03 15:24 | Outpatient (CLI) | payer BC, MEDICARE ==
[2017-10-23 10:23] VITALS: BMI 28.8
== END | disposition home or self-care (01) ==
LOC: D.LABREF 15:24
DX: M17.11 Unilateral primary osteoarthritis, right knee (principal); Z11.8 Encounter for screening for other infectious and parasitic diseases

== ENCOUNTER 2017-12-31 08:00 | Outpatient (CLI) | payer BC ==
[~2017-12-31 08:00] MED LIST changes: -BACTRIM DS TABL1 TAB PO; -ILOTYCIN1 GM LEFT EYE
[2017-12-31] MEDS ORDERED: BACTRIM DS TABL1 TAB PO (10:43)
[2017-12-31] MEDS ORDERED: ILOTYCIN1 GM LEFT EYE (10:45)
[2018-01-06 13:11] VITALS: BMI 29.4
== END 2017-12-31 08:01 | disposition other institution (70) ==
LOC: D.OPS 08:00
DX: M17.9 Osteoarthritis of knee, unspecified (principal); Z01.810 Encounter for preprocedural cardiovascular examination; Z01.811 Encounter for preprocedural respiratory examination; Z01.812 Encounter for preprocedural laboratory examination; Z53.9 Procedure and treatment not carried out, unspecified reason

== ENCOUNTER 2017-12-31 10:00 | Inpatient (IN) | payer MEDICARE, BC ==
[~2017-12-31] VITALS: Ht 175.3 cm; Wt 90.5 kg
--- NOTE | ~2017-12-31 | OP ---
PATIENT NAME: GABE LOWE MEDICAL RECORD: [id number] :53 LOCATION:D.MS [facility]2210 ADMISSION DATE:01/05/18 SURGEON: CHAVA FERNÁNDEZ MD DATE OF OPERATION: 01/05/2018 PREOPERATIVE DIAGNOSES: 1. Degenerative arthritis of the right knee. 2. 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 3. 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 POSTOPERATIVE DIAGNOSES: 1. Degenerative arthritis of the right knee. 2. 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 3. 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 PROCEDURES: 1. Right total knee arthroplasty. 2. Removal of previously placed hardware. SURGEON: Chava Fernández MD ANESTHESIA: General. INTRAOPERATIVE COMPLICATIONS: None. SUMMARY OF PATHOLOGIC FINDINGS: The patient did have substantial medial and patellofemoral breakdown. The anterior cruciate ligament looked to be relatively intact without substantial laxity; however, this is different than the MRI findings. OPERATIVE SUMMARY IN DETAIL: After obtaining the appropriate preoperative orthopedic surgery consent as well as anesthetic consultation, evaluation and clearance, the patient was brought to the operating room and placed on the operating room table in supine position. After general laryngeal mask was administered, tourniquet was placed on the proximal aspect of the right lower extremity. Right lower extremity was prepped and draped in routine sterile fashion. The leg was elevated and exsanguinated, tourniquet inflated to 350 mmHg. Routine midline incision was taken down for paramedian arthrotomy. The paramedian arthrotomy was taken down. At this point, a small incision was made to remove the patient's previously placed transtibial screw for ACL attachment. The patella was everted and the distal femur was exposed. At this point, the patient had substantial amounts of scar tissue and required manipulation for full exposure of the knee. After soft tissue was excised in the usual fashion, intramedullary guide hole was created for intramedullary guided distal femoral cuts. Distal femoral was cut. This was followed by complete exposure of the proximal tibia. Again, further soft tissue was then lead way to intramedullary created hole for intramedullary guided cuts of the proximal tibia. Proximal tibia was cut down likewise. Measurements were made and the chamfer cuts of the distal femur were done. Having completed this, trial was put into place corresponding to the above-mentioned trials. These were taken through the range of motion and found to be stable in all planes. Distal femur and proximal tibial preparations were followed by copious pulsatile lavage irrigation of the cavity. Bony ends were dried. Final components were cemented in place. All excess cement was removed. The knee was taken through range of motion. Patella was pristine. Having completed this, the paramedian arthrotomy was closed with OPERATIVE REPORT [id number] GABE LOWE #2 Ethibond. This was followed by #1 Vicryl, 2-0 Vicryl and skin katherine. Sterile dressings were applied. The patient was awakened and taken to the recovery room in stable condition. All final needle and sponge counts were correct. TRANSINT:[id number] Voice Confirmation ID: [id number] DOCUMENT ID: [id number] JOLENE SHANKAR, CHAVA TELLO at 0903 CC: [id number] DICTATION DATE: 01/16/18 0824 WARRANT CLERK: 01/16/18 1031 DIS IN 01/12/18 [facility] [address] [place] [address]
--- NOTE | ~2017-12-31 | OP ---
PATIENT NAME: GABE LOWE MEDICAL RECORD: [id number] :53 LOCATION:D.MS [facility]2210 ADMISSION DATE:01/05/18 SURGEON: CHAVA FERNÁNDEZ MD DATE OF OPERATION: 01/05/2018 PREOPERATIVE DIAGNOSES: 1. Posttraumatic degenerative arthritis of the right knee. 2. 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 3. History of deep venous thrombosis. 4. Malunion of the left fifth metacarpal fracture. POSTOPERATIVE DIAGNOSES: 1. Posttraumatic degenerative arthritis of the right knee. 2. 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 3. History of deep venous thrombosis. 4. Malunion of the left fifth metacarpal fracture. PROCEDURES: 1. Right total knee arthroplasty. 2. Removal of previously placed hardware of the right lower extremity. 3. Corrective osteotomy with open reduction internal fixation of right finger malunion. SURGEON: Chava Fernández MD ANESTHESIA: General. INTRAOPERATIVE COMPLICATIONS: None. SUMMARY OF PATHOLOGIC FINDINGS: The patient HAD extensive degenerative arthritis. The ACL that was read as torn was actually intact; however, the degenerative arthritis with the patient's symptoms was persistent with MRIs as well as preoperative radiographs. The patient's left fifth metacarpal had healed in a malrotated position with an apex dorsal angulation of approximately 45 degrees below the distal end of the fifth metacarpal. It required corrective osteotomy with internal plating. OPERATIVE SUMMARY IN DETAIL: After obtaining the appropriate preoperative orthopedic surgery consent as well as anesthetic consultation, evaluation and clearance, the patient was brought to the OR and placed on the operating room table in supine position. After adequate general laryngeal mask airway was administered, tourniquet was placed about the proximal aspect of the right lower extremity. The right lower extremity was prepped and draped in routine sterile fashion. The leg was elevated and exsanguinated, tourniquet was inflated to 350 mmHg. Very small incision was made over the previously placed ACL screw, which was transtibial. For this reason, it had to be removed for intramedullary guided cuts. The screw was identified and removed. Wound was then irrigated and attention was turned to the total knee arthroplasty. Incision was made directly in line for a direct midline incision, taken down for paramedian arthrotomy. Distal femur was exposed. The patient had extensive scar tissue in the knee. Soft tissue excision was done in the usual fashion. Distal intramedullary guide hole was created for intramedullary guided distal femoral cut. Having completed this, the entire proximal tibia was exposed. The residual soft tissue was removed and an intramedullary guide hole was created for intramedullary guidance. Proximal tibia was cut, appropriate measurements OPERATIVE REPORT [id number] CHRISSYGABE BAUTISTA were taken. Chamfer cuts for a size 5 distal femur were made. Trials were put into place, taken through range of motion. The patient required a size 5 distal femur, size 9 polyethylene insert, size 5 tibial baseplate with a 31 polyethylene patellar component. At this point, the entire knee cavity was copiously irrigated in pulsatile lavage fashion. The ends were dried. Final components were cemented into place. All excess cement was removed. After the cement was allowed to harden, the knee was taken through range of motion and found to be stable in all planes. A 5.5 SwiveLock from [employer] was utilized to reinforce the patient's patellar tendon. A slight avulsion had occurred during dissection given the patient's extreme tightness. The capsule was closed with #2 Ethibond followed by #1 Vicryl, 2-0 Vicryl and skin katherine. At this point, the patient's right leg was dressed to definitively. Tourniquet was deflated. Attention was then turned to the left upper extremity. Left upper extremity was prepped and draped in routine sterile fashion after a tourniquet was placed about the proximal aspect. The arm was elevated and exsanguinated. Tourniquet was inflated to 150 mmHg. Fluoroscopy was brought in and the area of the malunion was determined. First, the patient's finger was manipulated so that all the scar tissue that had caused for contracture was taken down. Incision was made of the dorsal lateral aspect of the left fifth metacarpal, taken down to the level of bone, was clearly visualized. The patient had very good healing with internal rotation and apex dorsal angulation at 45 degrees. Osteotomy was created at this point using a sharp osteotome. Rotation was corrected as was the dorsal angulation. This was provisionally pinned. Having completed this, a small plate from the modular handset was placed affixed. Serial and sequential drill and fill was done with combination of both compression and locking screws. Final radiographs of this were taken and submitted to radiologist for final review. Provisional pins were removed. Wound was then copiously irrigated and closed with a 4-0 Ethibond for closure of the small portion of the capsule. This was then followed with a 4-0 Prolene in running fashion. Sterile dressings were applied. Tourniquet was deflated. The patient was placed in an ulnar gutter splint with full extension of the fifth digit as well as the fourth digit. Tourniquet was deflated. The patient awakened and taken to recovery room in stable condition. All final needle and sponge counts were correct. TRANSINT:[id number] Voice Confirmation ID: [id number] DOCUMENT ID: [id number] JOLENE SHANKAR, CHAVA TELLO at 1917 CC: [id number] DICTATION DATE: 01/05/18 1247 CARRY OUT CLERK AND SHELF STOCKER: 01/05/18 1430 ADM IN [facility] [address] [place] [id number]
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
[2017-12-31] MEDS ORDERED: BACTRIM DS TABL1 TAB PO (10:43)
[2017-12-31] MEDS ORDERED: ILOTYCIN1 GM LEFT EYE (10:45)
[2017-12-31 11:25] LABS: BASOPHILS 0.6 % (0-2); EOSINOPHILS 1.7 % (0-7); HEMATOCRIT 44.4 % (42.0-54.0); HEMOGLOBIN 14.7 g/dL (13.5-17.5); IMMATURE GRANULOCYTES 0.1 % (0-5); LYMPHOCYTES 23.1 % (15-50); MCH 29.2 pg (26.0-34.0); MCHC 33.1 g/dL (31.0-37.0); MCV 88.3 fL (80.0-100.0); MEAN PLATELET VOLUME 10.5 fL (7.4-10.4); NEUTROPHILS 65.5 % (40-80); RBC 5.03 10x6/uL (4.20-6.10); RDW 14.5 % (11.5-14.5)
[2017-12-31 11:32] LABS: PLATELET COUNT 206 10x3/uL (130-400)
[2017-12-31 11:34] LABS: ANION GAP 10.2 mmol/L (8-16); CALCIUM 9.1 mg/dL (8.5-10.1); CARBON DIOXIDE 29.3 mmol/L (21.0-32.0); CREATININE - SERUM 1.2 mg/dL (0.6-1.3); INR 1.7 (0.85-1.17); POTASSIUM - SERUM 4.5 mmol/L (3.5-5.1); PROTIME 19.5 SECONDS (11.6-15.0)
[2017-12-31 11:40] LABS: APPEARANCE CLEAR (CLEAR); BILIRUBIN NEGATIVE (NEGATIVE); COLOR YELLOW (YELLOW); GLUCOSE NEGATIVE (NEGATIVE); KETONE NEGATIVE (NEGATIVE); NITRITE NEGATIVE (NEGATIVE); PROTEIN NEGATIVE (NEGATIVE); SPECIFIC GRAVITY 1.015 (1.005-1.020); UROBILINOGEN NORMAL (NORMAL)
[2018-01-05] VITALS (8 sets, daily range): BP systolic 103–115; BP diastolic 63–81; BMI 29.6; BMI 29.4
[2018-01-05 09:17] LABS: PROTIME 12.8 SECONDS (11.6-15.0)
[2018-01-06 00:59] VITALS: BP 124/64
[2018-01-06 04:17] VITALS: BP 96/53
[2018-01-06 05:52] LABS: HEMATOCRIT 34.1 % (42.0-54.0); HEMOGLOBIN 11.1 g/dL (13.5-17.5); MCH 28.1 pg (26.0-34.0); MCHC 32.6 g/dL (31.0-37.0); MCV 86.3 fL (80.0-100.0); MEAN PLATELET VOLUME 10.3 fL (7.4-10.4); RBC 3.95 10x6/uL (4.20-6.10); RDW 14.4 % (11.5-14.5); WBC 8.4 10x3/uL (4.8-10.8)
[2018-01-06 08:58] VITALS: BP 121/67
[2018-01-06 11:33] VITALS: BP 107/66
[2018-01-06 13:11] VITALS: Ht 175.3 cm; Wt 90.5 kg
[2018-01-06 15:46] VITALS: BP 103/67
[2018-01-06 21:12] VITALS: BP 121/77
[2018-01-07 01:10] VITALS: BP 114/62
[2018-01-07 04:30] VITALS: BP 114/70
[2018-01-07 04:54] LABS: HEMATOCRIT 33.9 % (42.0-54.0); HEMOGLOBIN 10.9 g/dL (13.5-17.5); MCH 28.3 pg (26.0-34.0); MCHC 32.2 g/dL (31.0-37.0); MCV 88.1 fL (80.0-100.0); MEAN PLATELET VOLUME 10.2 fL (7.4-10.4); PROTIME 15.2 SECONDS (11.6-15.0); RBC 3.85 10x6/uL (4.20-6.10); RDW 14.9 % (11.5-14.5); WBC 6.8 10x3/uL (4.8-10.8)
[2018-01-07 05:16] LABS: INR 1.24 (0.85-1.17)
[2018-01-07 07:52] VITALS: BP 100/68
[2018-01-07 12:17] VITALS: BP 100/64
[2018-01-07 15:38] VITALS: BP 98/66
[2018-01-07 21:02] VITALS: BP 113/68
[2018-01-08 04:55] VITALS: BP 112/68
[2018-01-08 05:08] LABS: INR 1.18 (0.85-1.17); PROTIME 14.6 SECONDS (11.6-15.0)
[2018-01-08 07:58] VITALS: BP 105/77
[2018-01-08 12:21] VITALS: BP 109/76
[2018-01-08 16:01] VITALS: BP 125/78
[2018-01-08 20:00] VITALS: BP 107/62
[2018-01-09] VITALS (7 sets, daily range): BP systolic 94–133; BP diastolic 60–85
[2018-01-09 05:12] LABS: INR 1.14 (0.85-1.17); PROTIME 14.2 SECONDS (11.6-15.0)
[2018-01-10 04:07] VITALS: BP 109/73
[2018-01-10 05:38] LABS: INR 1.18 (0.85-1.17); PROTIME 14.6 SECONDS (11.6-15.0)
[2018-01-10 08:07] VITALS: BP 124/80
[2018-01-10 18:29] VITALS: BP 131/72
[2018-01-10 21:08] VITALS: BP 127/77
[2018-01-11 04:45] VITALS: BP 107/77
[2018-01-11 05:53] LABS: INR 1.22 (0.85-1.17)
[2018-01-11 08:00] VITALS: BP 117/78
[2018-01-11 12:15] VITALS: BP 115/66
[2018-01-11 16:00] VITALS: BP 159/100
[2018-01-11 20:46] VITALS: BP 122/80
[2018-01-12 05:03] VITALS: BP 123/81
[2018-01-12 07:43] VITALS: BP 121/72
[2018-01-12 09:11] LABS: INR 1.32 (0.85-1.17); PROTIME 15.9 SECONDS (11.6-15.0)
[2018-01-12] MEDS ORDERED: DILAUDID2 MG PO (09:27)
== END 2018-01-12 11:46 | DRG 469 ==
LOC: D.SDCHOLD 01-05 07:10 → D.MS 01-05 07:10 → D.SDCHOLD 01-05 09:45 → D.MS 01-05 14:05
PROVIDERS: Anesthesiology; Orthopaedic Surgery
PROC: 0PSQ04Z Reposition Left Metacarpal with Internal Fixation Device, Open Approach (ICD-10-PCS; principal; 2018-01-05 09:45)
PROC: 0SRC0J9 Replacement of Right Knee Joint with Synthetic Substitute, Cemented, Open Approach (ICD-10-PCS; 2018-01-05 09:45)
PROC: 0QPG04Z Removal of Internal Fixation Device from Right Tibia, Open Approach (ICD-10-PCS; 2018-01-05 09:45)
PROC: 0PHQ34Z Insertion of Internal Fixation Device into Left Metacarpal, Percutaneous Approach (ICD-10-PCS; 2018-01-08)
DX: M17.31 Unilateral post-traumatic osteoarthritis, right knee (principal); I26.99 Other pulmonary embolism without acute cor pulmonale; S62.307 Unspecified fracture of fifth metacarpal bone, left hand; T14.90XS Injury, unspecified, sequela; X58.XXXD Exposure to other specified factors, subsequent encounter; Z86.718 Personal history of other venous thrombosis and embolism; Z79.01 Long term (current) use of anticoagulants; I73.9 Peripheral vascular disease, unspecified; T18.128A Food in esophagus causing other injury, initial encounter; I10 Essential (primary) hypertension; M20.092 Other deformity of left finger(s)

== ENCOUNTER 2018-04-06 08:41 | Day surgery (SDC) | payer MEDICARE, BC ==
[~2018-04-06] VITALS: Ht 175.3 cm; Wt 90.9 kg
--- NOTE | ~2018-04-06 | OP ---
PATIENT NAME: GABE RICHMOND MEDICAL RECORD: [id number] :53 LOCATION:DDEREK ADMISSION DATE: SURGEON: CHAVA FERNÁNDEZ MD DATE OF OPERATION: 04/06/2018 PREOPERATIVE DIAGNOSIS: Previous arthrofibrosis of the right knee. POSTOPERATIVE DIAGNOSIS: Previous arthrofibrosis of the right knee. PROCEDURE: Manipulation of the right knee under anesthesia. SURGEON: Chava Fernández MD ANESTHESIA: General. INTRAOPERATIVE COMPLICATIONS: None. SUMMARY OF PATHOLOGIC FINDINGS: Mr. Richmond indeed has severe arthrofibrosis, status post total knee arthroplasty with swelling of the leg from a posttraumatic arteriovenous fistula. His preoperative range of motion was approximately 275, his post-manipulation range of motion was to approximately 120. OPERATIVE SUMMARY IN DETAIL: After obtaining the appropriate preoperative orthopedic surgery consent as well as anesthetic consultation, evaluation and clearance, the patient was brought to the operating room and placed on the operating table in supine position. After adequate general laryngeal mask airway was administered and the patient had a preoperative right lower extremity block, the patient's knee was stabilized and manipulated with good release of adhesions both in extension as well as flexion up to approximately 120 degrees as noted above. Having completed this, the patient was awakened and postoperatively had substantial amount of pain. For this reason, he was admitted under observation. The patient was taken to the recovery room in stable condition. TRANSINT:[id number] Voice Confirmation ID: [id number] DOCUMENT ID: [id number] JOLENE SHANKAR, CHAVA TELLO at 1023 CC: [id number] DICTATION DATE: 04/09/18 0804 TEMPERATURE REGULATOR PYROMETER: 04/09/18 0837 [facility] 04/08/[address] [address]
[~2018-04-06 08:41] MED LIST changes: +BACTRIM DS TABL1 TAB PO; +DILAUDID2 MG PO; +ILOTYCIN1 GM LEFT EYE
[2018-04-06 09:16] LABS: HEMATOCRIT 42.7 % (42.0-54.0); HEMOGLOBIN 13.9 g/dL (13.5-17.5); MCH 27.5 pg (26.0-34.0); MCHC 32.6 g/dL (31.0-37.0); MCV 84.6 fL (80.0-100.0); MEAN PLATELET VOLUME 9.8 fL (7.4-10.4); RBC 5.05 10x6/uL (4.20-6.10); RDW 14.9 % (11.5-14.5); WBC 6.6 10x3/uL (4.8-10.8)
[2018-04-06 09:34] LABS: APTT 46.6 SECONDS (22.8-39.4); INR 2.51 (0.85-1.17); PROTIME 26.4 SECONDS (11.6-15.0)
[2018-04-06 10:20] VITALS: BP 119/69; BMI 29.6
[2018-04-06 11:55] VITALS: BP 114/68
[2018-04-06 12:32] VITALS: BP 114/68
[2018-04-06 12:58] VITALS: BP 114/68; Ht 175.3 cm; Wt 90.9 kg
[2018-04-06 16:31] VITALS: BP 123/74
[2018-04-07 06:02] VITALS: BP 119/74
[2018-04-07 08:23] VITALS: BP 119/78
[2018-04-07 11:28] VITALS: BP 131/89
[2018-04-07 15:54] VITALS: BP 113/74
[2018-04-08] VITALS: BP 118/76
[2018-04-08 04:00] VITALS: BP 114/75
[2018-04-08] MEDS ORDERED: NORCO-10 PO (07:32)
[2018-04-08 08:31] VITALS: BP 133/81
== END 2018-04-08 10:29 | disposition home or self-care (01) ==
LOC: D.MS 08:41 → D.OPS 08:41 → D.MS 11:52 → D.OPS 12:00 → D.PAN 13:00 → D.OPS 15:45 → D.PAN 15:45 → D.OPS 04-08 10:29
PROVIDERS: Anesthesiology
DX: M24.661 Ankylosis, right knee (principal); Z96.651 Presence of right artificial knee joint; H40.9 Unspecified glaucoma; I10 Essential (primary) hypertension; I73.9 Peripheral vascular disease, unspecified; Z86.711 Personal history of pulmonary embolism; Z79.01 Long term (current) use of anticoagulants; Z79.899 Other long term (current) drug therapy; Z88.8 Allergy status to other drugs, medicaments and biological substances; Z91.041 Radiographic dye allergy status; Z01.812 Encounter for preprocedural laboratory examination

== ENCOUNTER 2018-04-19 01:13 | Emergency (ER) | payer MEDICARE, BC ==
[~2018-04-19] VITALS: Ht 175.3 cm; Wt 90.7 kg
[~2018-04-19 01:13] MED LIST changes: +NORCO-10 PO
[2018-04-19 01:15] VITALS: Ht 175.3 cm; Wt 90.7 kg
[2018-04-19 01:29] LABS: APPEARANCE CLEAR (CLEAR); BILIRUBIN NEGATIVE (NEGATIVE); COLOR YELLOW (YELLOW); GLUCOSE NEGATIVE (NEGATIVE); KETONE NEGATIVE (NEGATIVE); NITRITE NEGATIVE (NEGATIVE); PROTEIN NEGATIVE (NEGATIVE); SPECIFIC GRAVITY 1.015 (1.005-1.020); UROBILINOGEN NORMAL (NORMAL)
[2018-04-19 02:47] LABS: BASOPHILS 0.3 % (0-2); EOSINOPHILS 0.7 % (0-7); HEMOGLOBIN 13.7 g/dL (13.5-17.5); IMMATURE GRANULOCYTES 0.2 % (0-5); LYMPHOCYTES 8.7 % (15-50); MCH 27.5 pg (26.0-34.0); MCHC 32.6 g/dL (31.0-37.0); MCV 84.3 fL (80.0-100.0); MEAN PLATELET VOLUME 9.9 fL (7.4-10.4); MONOCYTES 6.7 % (2-11); NEUTROPHILS 83.4 % (40-80); PLATELET COUNT 254 10x3/uL (130-400); RBC 4.98 10x6/uL (4.20-6.10); RDW 14.8 % (11.5-14.5); WBC 11.9 10x3/uL (4.8-10.8)
[2018-04-19 03:02] LABS: ALBUMIN 3.4 g/dL (3.4-5.0); ALKALINE PHOSPHATASE 95 U/L (46-116); ALT (SGPT) 19 U/L (10-68); BILIRUBIN - TOTAL 0.26 mg/dL (0.2-1.3); CALC OSMOLALITY 278 mosm/kg (275-300); CALCIUM 8.5 mg/dL (8.5-10.1); CARBON DIOXIDE 26.9 mmol/L (21.0-32.0); CHLORIDE - SERUM 103 mmol/L (98-107); CREATININE - SERUM 1.4 mg/dL (0.6-1.3); GLUCOSE 113 mg/dL (74-106); POTASSIUM - SERUM 4.5 mmol/L (3.5-5.1); PROTEIN - SERUM 7.3 g/dL (6.4-8.2); SODIUM 138 mmol/L (136-145); UREA NITROGEN 18 mg/dL (7-18); eGFR NON AFRICAN AMERICAN 54 mL/min (90-120)
[2018-04-19 03:09] LABS: C-REACTIVE PROTEIN 1.4 mg/dL (0.0-0.9); LIPASE 159 U/L (73-393); PRO BNP 44 pg/mL (0-125); TROPONIN-I < 0.017 ng/mL (0.000-0.060)
[2018-04-19 03:50] VITALS: BP 134/79
== END 2018-04-19 03:50 | disposition home or self-care (01) ==
LOC: D.ER 01:13
PROVIDERS: Family Medicine
DX: Z87.39 Personal history of other diseases of the musculoskeletal system and connective tissue (principal); R10.12 Left upper quadrant pain; K21.9 Gastro-esophageal reflux disease without esophagitis; H40.9 Unspecified glaucoma; I10 Essential (primary) hypertension; I73.9 Peripheral vascular disease, unspecified; Z85.828 Personal history of other malignant neoplasm of skin

== ENCOUNTER → 2018-06-08 14:21 | Outpatient (CLI) | payer MEDICARE, BC ==
[2018-04-19 01:15] VITALS: BMI 29.6
[2018-06-08 14:50] LABS: INR 1.21 (0.85-1.17); PROTIME 14.9 SECONDS (11.6-15.0)
== END | disposition home or self-care (01) ==
LOC: D.LABREF 14:21
PROVIDERS: Internal Medicine Hematology & Oncology
DX: I82.401 Acute embolism and thrombosis of unspecified deep veins of right lower extremity (principal); Z86.718 Personal history of other venous thrombosis and embolism

== ENCOUNTER 2019-05-01 07:22 | Inpatient (IN) | payer MEDICARE, BC ==
[~2019-05-01] VITALS: Ht 175.3 cm; Wt 90.9 kg
[2019-05-01 07:52] LABS: BASOPHILS 0.7 % (0-2); EOSINOPHILS 4.2 % (0-7); IMMATURE GRANULOCYTES 0.4 % (0-5); LYMPHOCYTES 15.2 % (15-50); MCH 27.6 pg (26.0-34.0); MCHC 31.6 g/dL (31.0-37.0); MCV 87.6 fL (80.0-100.0); MONOCYTES 4.9 % (2-11); NEUTROPHILS 74.6 % (40-80); PLATELET COUNT 278 10x3/uL (130-400); RBC 4.34 10x6/uL (4.20-6.10); RDW 14.7 % (11.5-14.5); WBC 7.6 10x3/uL (4.8-10.8)
[2019-05-01 08:09] LABS: INR 2.18 (0.85-1.17); PROTIME 23.6 SECONDS (11.6-15.0)
[2019-05-01 08:17] LABS: ALBUMIN 3.4 g/dL (3.4-5.0); ALKALINE PHOSPHATASE 106 U/L (46-116); ALT (SGPT) 25 U/L (10-68); BILIRUBIN - TOTAL 0.18 mg/dL (0.2-1.3); CALC OSMOLALITY 282 mosm/kg (275-300); CALCIUM 8.2 mg/dL (8.5-10.1); CHLORIDE - SERUM 104 mmol/L (98-107); CREATININE - SERUM 1.3 mg/dL (0.6-1.3); GLUCOSE 152 mg/dL (74-106); POTASSIUM - SERUM 4.6 mmol/L (3.5-5.1); SODIUM 140 mmol/L (136-145); UREA NITROGEN 14 mg/dL (7-18); eGFR NON AFRICAN AMERICAN 59 mL/min (90-120)
[2019-05-01 08:29] LABS: CKMB 0.6 U/L (0.0-3.6); CREATINE KINASE 49 UL (21-232); MAGNESIUM - SERUM 1.7 mg/dL (1.8-2.4); TROPONIN-I < 0.017 ng/mL (0.000-0.060)
--- NOTE | 2019-05-01 09:20 | NUR ---
atttempt x 3 piv, on 4th attempt was able to obtain a 22g piv that is positional, pt reports he is a very hard stick, charge nurse Paula notified.
[2019-05-01 09:22] VITALS: BP 151/94
[2019-05-01 10:49] LABS: CKMB 0.7 U/L (0.0-3.6); CREATINE KINASE 34 UL (21-232)
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
[2019-05-01 11:02] LABS: TROPONIN-I < 0.017 ng/mL (0.000-0.060)
[2019-05-01] MEDS ORDERED: COZAAR50 MG PO (11:11)
[2019-05-01 12:00] VITALS: BP 149/93
[2019-05-01 16:00] VITALS: BP 162/69
[2019-05-01 16:36] LABS: CKMB 0.4 U/L (0.0-3.6); CREATINE KINASE 26 UL (21-232); TROPONIN-I < 0.017 ng/mL (0.000-0.060)
--- NOTE | 2019-05-01 17:17 | NUR ---
REPORT GIVEN TO GEORGI SCHROEDER. PT MADE AWARE.
[2019-05-01 17:59] VITALS: BP 140/93; Ht 175.3 cm; Wt 90.9 kg
--- NOTE | 2019-05-01 18:06 | NUR ---
ASSESSMENT COMPLETE PT DENIES ANY PAIN NAD NOTED DRSG C/D/I TO RT KNEE/LOWER LEG
[2019-05-01 19:59] VITALS: BP 119/80
[2019-05-01 21:24] LABS: CKMB 0.4 U/L (0.0-3.6); CREATINE KINASE 23 UL (21-232); TROPONIN-I < 0.017 ng/mL (0.000-0.060)
[2019-05-01 23:42] VITALS: BP 113/76
[2019-05-02 03:50] VITALS: BP 116/76
[2019-05-02 06:08] LABS: BASOPHILS 0.6 % (0-2); EOSINOPHILS 4.9 % (0-7); HEMOGLOBIN 10.9 g/dL (13.5-17.5); IMMATURE GRANULOCYTES 0.3 % (0-5); LYMPHOCYTES 22.2 % (15-50); MCHC 31.1 g/dL (31.0-37.0); MCV 86.8 fL (80.0-100.0); MEAN PLATELET VOLUME 9.8 fL (7.4-10.4); MONOCYTES 8.1 % (2-11); NEUTROPHILS 63.9 % (40-80); PLATELET COUNT 286 10x3/uL (130-400); RBC 4.03 10x6/uL (4.20-6.10); RDW 14.8 % (11.5-14.5); WBC 6.3 10x3/uL (4.8-10.8)
[2019-05-02 06:41] LABS: ALBUMIN 2.8 g/dL (3.4-5.0); BILIRUBIN - TOTAL 0.23 mg/dL (0.2-1.3); CALCIUM 8.2 mg/dL (8.5-10.1); CARBON DIOXIDE 28.3 mmol/L (21.0-32.0); CREATININE - SERUM 1.3 mg/dL (0.6-1.3); MAGNESIUM - SERUM 1.7 mg/dL (1.8-2.4); POTASSIUM - SERUM 4.3 mmol/L (3.5-5.1); PROTEIN - SERUM 6.4 g/dL (6.4-8.2)
[2019-05-02 08:00] VITALS: BP 154/95
--- NOTE | 2019-05-02 12:13 | EC ---
PATIENT:GABE LOWE DATE OF SERVICE: 05/01/19 SEX: M MEDICAL RECORD: [id number] DATE OF : 53 LOCATION:D.M2 D.213 AGE OF PATIENT: 63 ADMISSION DATE: 05/01/19 REFERRING PHYSICIAN: INTERPRETING PHYSICIAN: TERRANCE VERAS MD ECHOCARDIOGRAM REPORT ECHO CHARGES 4 ECHO COMPLETE Date: 05/01/19 CLINICAL DIAGNOSIS: CP ECHOCARDIOGRAPHIC MEASUREMENTS (adult normal given) AC root (d.<3.7cm) 3.7 cm LV Septum d (<1.2 cm> 1.5 cm Valve Excursion 2.4 cm LV Septum (systole) 2.2 cm Left Atria (s.<4.0cm> 3.4 cm LVPW d(<1.2cm) 1.4 cm RV (d.<2.3cm) 3.1 cm LVPW (sytole) 2.3 cm LV diastole(<5.6CM) 5.5 cm MV E-F(>70mm/sec) cm LV systole 3.3 cm LVOT Diameter 2.1 cm MV exc.(>10mm) cm Est.ejection fraction (50-75%) % DOPPLER: LVIT cm/sec A 87.0 cm/sec E 96.0 cm/sec LA cm/sec RVSP 14.0 mmHg LVOT 71.0 cm/sec AOP1/2T m/s Asc. Ao 109 cm/sec RVOT 51.0 cm/sec RA cm/sec PA 76.0 cm/sec AV Gradient Peak 4.7 mmHg AV Mean 2.5 mmHg AV Area 2.2 cm MV Gradient Peak 4.2 mmHg MV Mean 1.4 mmHg MV Area cm COMMENTS: Vehicle Controls Engineer: 1 AUDREY KEARNSOE Ticket Clerk: 3 Dr. Mata TAPE# PACS Pericardial Effusion N DATE OF SERVICE: Adequate 2D, color flow, spectral Doppler, and M-mode. LVH is present. LV internal dimension is normal. Wall motion is normal. EF is greater than or equal to 55%. Aortic valve is tricuspid. No evidence of stenosis by Doppler interrogation. Left atrium is normal. Mitral valve shows no prolapse. Trace MR. Right-sided chambers are grossly normal. Trace TR. TRANSINT:[id number] Voice Confirmation ID: [id number] DOCUMENT ID: [id number] ECHOCARDIOGRAM REPORT [id number] ABERNATHY GREGORY A MD at 1213 CC: [id number] DICTATION DATE: 05/02/19902 SEWER BRICKLAYER: 05/02/19 1056 ADM IN [place] [address] [place] [id number]
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
--- NOTE | 2019-05-03 09:52 | MORECARE ---
CASE MANAGEMENT DISCHARGE SUMMARY PATIENT: GABE LOWE UNIT: [id number] ADM DATE: 05/01/19 AGE: 63 : 54 SEX: M ROOM/BED: D.2133 AUTHOR: LILY YOUSIF PHYSICIAN: REFERRING PHYSICIAN: SHI KEITH DO DATE OF SERVICE: 05/03/19 Discharge Plan Patient Name: GABE LOWE [facility] : 1955 Planned Disposition: Home Anticipated Discharge Date: 05/02/19 Discharge Date: 05/02/2019 Expected LOS: 1 Initial Reviewer: [email or web address] Initial Review Date: 05/03/2019 Generated: 05/03/19 10:52 am Patient Name: GABE LOWE Page [id number] at 0952 All edits/amendments must be made on the electronic document DICTATION DATE: 05/03/19951 PARLIAMENTARY ARCHIVIST: BRADY 05/03/19951 RPT#: [id number] DC DATE:05/02/19 STATUS: DIS IN [facility] [address] [place] [address] END OF REPORT
== END 2019-05-02 16:41 | disposition home or self-care (01) | DRG 313 ==
LOC: D.ER 07:22 → D.M2 09:39 → OBSVTIME 09:46 → D.M2 10:45
PROVIDERS: Family Medicine; ADMIT Family Medicine; ATTEND Family Medicine
DX: R07.9 Chest pain, unspecified (principal); Q60.0 Renal agenesis, unilateral; M96.841 Postprocedural hematoma of a musculoskeletal structure following other procedure; I10 Essential (primary) hypertension; Z86.711 Personal history of pulmonary embolism; D64.9 Anemia, unspecified; E83.42 Hypomagnesemia; I73.9 Peripheral vascular disease, unspecified; Z86.718 Personal history of other venous thrombosis and embolism; Z79.01 Long term (current) use of anticoagulants; Y83.9 Surgical procedure, unspecified as the cause of abnormal reaction of the patient, or of later complication, without mention of misadventure at the time of the procedure

== ENCOUNTER 2020-03-08 15:40 | Inpatient (IN) | payer MEDICARE, BC ==
[~2020-03-08] VITALS: Ht 175.3 cm; Wt 90.7 kg
[~2020-03-08 15:40] MED LIST changes: +COZAAR50 MG PO
[2020-03-08 16:05] VITALS: BP 131/79
[2020-03-08 17:16] LABS: BASOPHILS 0.3 % (0-2); EOSINOPHILS 1.6 % (0-7); HEMATOCRIT 41.9 % (42.0-54.0); HEMOGLOBIN 13.3 g/dL (13.5-17.5); IMMATURE GRANULOCYTES 0.2 % (0-5); LYMPHOCYTES 14.5 % (15-50); MCH 26.6 pg (26.0-34.0); MCHC 31.7 g/dL (31.0-37.0); MCV 83.8 fL (80.0-100.0); MEAN PLATELET VOLUME 10.5 fL (7.4-10.4); MONOCYTES 7.7 % (2-11); NEUTROPHILS 75.7 % (40-80); PLATELET COUNT 226 10x3/uL (130-400); RDW 19.3 % (11.5-14.5); WBC 9.6 10x3/uL (4.8-10.8)
[2020-03-08 17:27] LABS: CALC OSMOLALITY 287 mosm/kg (275-300); CALCIUM 8.2 mg/dL (8.5-10.1); CARBON DIOXIDE 26.6 mmol/L (21.0-32.0); CHLORIDE - SERUM 106 mmol/L (98-107); CREATININE - SERUM 1.2 mg/dL (0.6-1.3); GLUCOSE 115 mg/dL (74-106); POTASSIUM - SERUM 4.2 mmol/L (3.5-5.1); SODIUM 143 mmol/L (136-145); UREA NITROGEN 17 mg/dL (7-18); eGFR NON AFRICAN AMERICAN 64 mL/min (90-120)
[2020-03-08 17:48] LABS: ALBUMIN 3.6 g/dL (3.4-5.0); ALKALINE PHOSPHATASE 125 U/L (30-120); ALT (SGPT) 56 U/L (10-68); CKMB 0.5 U/L (0.0-3.6); CREATINE KINASE 83 UL (21-232); LIPASE 137 U/L (73-393); PROTEIN - SERUM 6.6 g/dL (6.4-8.2); TROPONIN-I < 0.017 ng/mL (0.000-0.060)
--- NOTE | 2020-03-08 18:05 | NUR ---
PT TO CT
--- NOTE | 2020-03-08 18:05 | NUR ---
URINE TO LAB
[2020-03-08 18:34] LABS: APTT 31.2 SECONDS (22.8-39.4); INR 2.01 (0.85-1.17); PROTIME 22.5 SECONDS (11.6-15.0)
[2020-03-08 18:36] LABS: D-DIMER-QUANTITATIVE 0.82 ug/mLFEU (0.20-0.54)
[2020-03-08 19:38] LABS: BILIRUBIN NEGATIVE (NEGATIVE); GLUCOSE NEGATIVE (NEGATIVE); KETONE NEGATIVE (NEGATIVE); NITRITE NEGATIVE (NEGATIVE); UROBILINOGEN NORMAL (NORMAL)
[2020-03-08 20:03] VITALS: BP 146/88
--- NOTE | 2020-03-08 20:10 | NUR ---
TO NUCLEAR MED PER TECH TO HAVE VQ SCAN, PATIENT STABLE,
--- NOTE | 2020-03-08 20:43 | NUR ---
BACK FROM NUCLEAR MEDICINE.
[2020-03-08] MEDS ORDERED: JANTOVEN5 MG PO (23:49)
[2020-03-08] MEDS ORDERED: TIMOPTIC 0.5 % O5 ML EACH EYE (23:53)
[2020-03-09 00:42] VITALS: BP 134/83; Ht 175.3 cm; Wt 90.7 kg
[2020-03-09 01:31] LABS: CKMB 0.6 U/L (0.0-3.6); CREATINE KINASE 48 UL (21-232)
[2020-03-09 01:33] LABS: TROPONIN-I < 0.017 ng/mL (0.000-0.060)
--- NOTE | 2020-03-09 01:36 | NUR ---
PATIENT IS HERE FOR EPIGASTRIC PAIN. HE HAS A ORDER FOR TELE, AND WE ARE OUT OF TELE BOXES. I CALLED MICHELLE MARSH, TO SEE IF WE NEEDED TELE FOR HIM. HE RECOMMENDED TELE FOR THE PATIENT. I TOLD SOLITARIO TO SEE IF WE CAN GET SOME OTHER PATIENTS OFF TELE, SO WE CAN PUT TELE ON HIM.
--- NOTE | 2020-03-09 03:56 | NUR ---
PATIENT IS SLEEPING IN BED. HE NEEDS TELEMETRY, BUT WE ARE OUT OF TELE BOXES. HIS TROPONINS ARE NEGATIVE X3. WE WILL CONTINUE TO MONITOR FOR EPIGASTRIC PAIN.
[2020-03-09 06:43] LABS: HEMATOCRIT 40.9 % (42.0-54.0); MCH 26.7 pg (26.0-34.0); MCHC 31.8 g/dL (31.0-37.0); MEAN PLATELET VOLUME 10.1 fL (7.4-10.4); PLATELET COUNT 236 10x3/uL (130-400); RBC 4.87 10x6/uL (4.20-6.10); RDW 19.6 % (11.5-14.5)
[2020-03-09 07:10] LABS: ALBUMIN 3.4 g/dL (3.4-5.0); ALKALINE PHOSPHATASE 181 U/L (30-120); BILIRUBIN - TOTAL 2.06 mg/dL (0.2-1.3); CALC OSMOLALITY 278 mosm/kg (275-300); CALCIUM 8.7 mg/dL (8.5-10.1); CHLORIDE - SERUM 106 mmol/L (98-107); CKMB 0.6 U/L (0.0-3.6); CREATINE KINASE 46 UL (21-232); CREATININE - SERUM 1.2 mg/dL (0.6-1.3); GLUCOSE 102 mg/dL (74-106); MAGNESIUM - SERUM 2.1 mg/dL (1.8-2.4); POTASSIUM - SERUM 4.4 mmol/L (3.5-5.1); PROTEIN - SERUM 6.8 g/dL (6.4-8.2); SODIUM 140 mmol/L (136-145); TROPONIN-I < 0.017 ng/mL (0.000-0.060); UREA NITROGEN 13 mg/dL (7-18); eGFR NON AFRICAN AMERICAN 64 mL/min (90-120)
[2020-03-09 07:14] LABS: ALT (SGPT) 392 U/L (10-68)
[2020-03-09 07:50] LABS: BASOPHILS 1 % (0-2); LYMPHOCYTES 7 % (15-50); MONOCYTES 3 % (2-11); NEUTROPHILS 84 % (40-80); PLATELET ESTIMATE NORMAL
[2020-03-09 08:00] VITALS: BP 115/77
--- NOTE | 2020-03-09 08:50 | NUR ---
GAVE PT PROTONIX IV THIS AM, HELD MORNING [facility] DUE TO PT BEING NPO FOR US, PT DENIES PAIN OR NEEDS AT THIS TIME, IV INFUSING WITHOUT DIFFICULTY, SITE CLEAR, STILL WAITING ON TELE MONITOR, NONE AVAILABLE AT THIS TIME, EKG SHOWS NS WITH 1ST DEGREE BLOCK, PT DENIES ANY CHEST PAIN, SR UP X2, CALL LIGHT IN REACH, WILL MONITOR, BED LOW AND LOCKED
[2020-03-09 11:00] VITALS: BP 131/84
[2020-03-09 11:01] LABS: AMYLASE - SERUM 53 U/L (25-115)
[2020-03-09 11:02] LABS: LIPASE 182 U/L (73-393)
--- NOTE | 2020-03-09 12:21 | NUR ---
PT STILL NPO FOR PENDING PROCEDURE, PT AWARE, ALL QUESTIONS ANSWERED, NO OTHER NEEDS VOICED AT [facility]IST [facility], SR UP X2, CALL LIGHT IN REACH, WILL MONITOR
[2020-03-09 12:37] LABS: CKMB 0.3 U/L (0.0-3.6); CREATINE KINASE 39 UL (21-232)
[2020-03-09 12:38] LABS: TROPONIN-I < 0.017 ng/mL (0.000-0.060)
--- NOTE | 2020-03-09 14:44 | NUR ---
PLACED PT ON TELE, SR 66 NOTED, PT DENIES NEEDS AT THIS TIME, WILL MONITOR
[2020-03-09 15:00] VITALS: BP 135/87
--- NOTE | 2020-03-09 15:48 | NUR ---
PT RESTING IN BED WAITING ON GI DOCTOR, PT IS STILL NPO AND AWARE, PT DENIES ANY NEEDS AT THIS TIME, WILL CONTINUE TO MONITOR, CALL LIGHT IN REACH
[2020-03-09 19:00] VITALS: BP 163/70
--- NOTE | 2020-03-09 19:43 | NUR ---
REPORT RECEIVED, WILL CONT POC. PT A&O, UP IN BED WATCHING TV. NO S/S OF DISTRESS OBSERVED. RR EVEN AND UNLABORED ON ROOM AIR. PT REPORTS DRY MOUTH DUE TO NPO. GAVE PT LEMON GLYCERIN STICKS TO MOISTEN MOUTH. PT DENIES ANY OTHER NEEDS AT THIS TIME. CALL LIGHT IN REACH, BED LOCKED AND LOWERED. WILL CONT TO MONITOR.
[2020-03-10 05:19] VITALS: BP 123/76
[2020-03-10 05:49] LABS: BASOPHILS 0.4 % (0-2); EOSINOPHILS 4.7 % (0-7); HEMATOCRIT 39.1 % (42.0-54.0); HEMOGLOBIN 12.1 g/dL (13.5-17.5); LYMPHOCYTES 21.8 % (15-50); MCH 26.4 pg (26.0-34.0); MCHC 30.9 g/dL (31.0-37.0); MCV 85.2 fL (80.0-100.0); MEAN PLATELET VOLUME 10.1 fL (7.4-10.4); MONOCYTES 8.8 % (2-11); NEUTROPHILS 64.3 % (40-80); PLATELET COUNT 245 10x3/uL (130-400); RBC 4.59 10x6/uL (4.20-6.10); RDW 19.7 % (11.5-14.5); WBC 5.3 10x3/uL (4.8-10.8)
[2020-03-10 06:16] LABS: ANION GAP 10.9 mmol/L (8-16); CALCIUM 8.2 mg/dL (8.5-10.1); CARBON DIOXIDE 27.4 mmol/L (21.0-32.0); CREATININE - SERUM 1.2 mg/dL (0.6-1.3); MAGNESIUM - SERUM 1.9 mg/dL (1.8-2.4); PHOSPHOROUS 2.5 mg/dL (2.5-4.9); POTASSIUM - SERUM 4.3 mmol/L (3.5-5.1)
[2020-03-10 06:35] LABS: INR 1.85 (0.85-1.17); PROTIME 21.1 SECONDS (11.6-15.0)
--- NOTE | 2020-03-10 07:20 | NUR ---
WALKING ROUNDS COMPLETE, PT RESTING IN BED, RESP EVEN AND UNLABORED, IV INFUSING WITHOUT DIFFICULTY, SITE CLEAR, SR UP X2, CALL LIGHT IN REACH, WILL CONTINUE TO MONITOR, PT AWARE OF BEING NPO FOR MRCP
--- NOTE | 2020-03-10 07:50 | NUR ---
pt joff the floor for mrcp, will monitor for return, told tele pt is off floor
[2020-03-10 09:20] VITALS: BP 148/80
--- NOTE | 2020-03-10 09:30 | NUR ---
gave pt scheduled meds, hooked pt up to tele, being monitored, pt sitting up in chair, pt is still npo at this time, no needs voiced at this time, call light in reach, will monitor
[2020-03-10 13:53] VITALS: BP 140/89
[2020-03-10 16:00] VITALS: BP 145/94
[2020-03-10 20:45] VITALS: BP 143/82
--- NOTE | 2020-03-11 04:18 | NUR ---
PT RESTING QUIETLY. NO C/O VOICED THIS SHIFT. UTALIZES CALL LIGHT FOR ASSISTANCE. NO NEEDS EXPRESSED. CALL LIGHT IN REACH, WILL CTM.
[2020-03-11 05:44] VITALS: BP 133/77
[2020-03-11 06:10] LABS: INR 1.92 (0.85-1.17); PROTIME 21.8 SECONDS (11.6-15.0)
[2020-03-11 06:33] LABS: ANION GAP 13.2 mmol/L (8-16); BILIRUBIN - TOTAL 0.62 mg/dL (0.2-1.3); CALCIUM 8.6 mg/dL (8.5-10.1); CARBON DIOXIDE 24.8 mmol/L (21.0-32.0); CREATININE - SERUM 1.3 mg/dL (0.6-1.3); MAGNESIUM - SERUM 1.7 mg/dL (1.8-2.4); PHOSPHOROUS 2.8 mg/dL (2.5-4.9); PROTEIN - SERUM 6.4 g/dL (6.4-8.2)
[2020-03-11 06:36] LABS: BASOPHILS 0.7 % (0-2); EOSINOPHILS 4.1 % (0-7); HEMATOCRIT 39.8 % (42.0-54.0); HEMOGLOBIN 12.6 g/dL (13.5-17.5); IMMATURE GRANULOCYTES 0.2 % (0-5); LYMPHOCYTES 20.1 % (15-50); MCH 26.6 pg (26.0-34.0); MCHC 31.7 g/dL (31.0-37.0); MCV 84.1 fL (80.0-100.0); MEAN PLATELET VOLUME 10.4 fL (7.4-10.4); MONOCYTES 11.8 % (2-11); NEUTROPHILS 63.1 % (40-80); PLATELET COUNT 257 10x3/uL (130-400); RBC 4.73 10x6/uL (4.20-6.10); RDW 19.2 % (11.5-14.5); WBC 5.4 10x3/uL (4.8-10.8)
--- NOTE | 2020-03-11 07:36 | NUR ---
PT AWAKE AND ORIENTED, EXPLAINED THAT I WAS UNABLE TO GIVE A SPECIFIC TIME HE WOULD GO TO PROCEDURE D/T US NOT KNOWING SURGERY'S SCHEDULE. PT HAS NO FURTHER QUESTIONS OR COMMENTS AT THIS TIME. CL IN REACH, SRX2.
[2020-03-11 08:19] VITALS: BP 153/84
--- NOTE | 2020-03-11 09:24 | NUR ---
PT AWAKE AND ORIENTED TOOK MEDICATIONS WITHOUT COMPLCATIONS. PT HAS SOME QUESTIONS ABOUT NEEDING LOVENOX INJECTIONS POST D/C AFTER SRUGERY WELL WANTING INFO ON HOW TO ADMINISTER THEM. WILL SPEAK WITH WHEN HE ROUNDS REGARDING PTS REQUESTS. CL IN REACH, SRX2. HAVE NOT BEEN CALLED AT THIS TIME FOR PREOP
[2020-03-11 12:00] VITALS: BP 148/80
[2020-03-11 16:00] VITALS: BP 130/86
--- NOTE | 2020-03-11 16:11 | NUR ---
PT AWAKE AND ORIENTED. SITTING IN CHAIR BESIDE BED. NO COMLAINTS OR CONCERNS AT THIS TIME. CL IN REACH, SRX2.
--- NOTE | 2020-03-11 16:44 | NUR ---
I have reviewed this patient and I concur with the Shift Assessment completed by the Licensed Practical Nurse today this shift.
[2020-03-11 22:30] VITALS: BP 126/81
[2020-03-12 06:23] LABS: BASOPHILS 0.6 % (0-2); EOSINOPHILS 5.2 % (0-7); HEMATOCRIT 40.2 % (42.0-54.0); HEMOGLOBIN 12.6 g/dL (13.5-17.5); IMMATURE GRANULOCYTES 0.4 % (0-5); LYMPHOCYTES 27.8 % (15-50); MCH 26.5 pg (26.0-34.0); MCHC 31.3 g/dL (31.0-37.0); MCV 84.6 fL (80.0-100.0); MEAN PLATELET VOLUME 10.4 fL (7.4-10.4); MONOCYTES 12.4 % (2-11); NEUTROPHILS 53.6 % (40-80); PLATELET COUNT 270 10x3/uL (130-400); RBC 4.75 10x6/uL (4.20-6.10); RDW 19.3 % (11.5-14.5); WBC 5.4 10x3/uL (4.8-10.8)
[2020-03-12 06:45] LABS: ANION GAP 10.7 mmol/L (8-16); CALCIUM 8.5 mg/dL (8.5-10.1); CARBON DIOXIDE 29.7 mmol/L (21.0-32.0); CREATININE - SERUM 1.3 mg/dL (0.6-1.3); MAGNESIUM - SERUM 1.6 mg/dL (1.8-2.4); POTASSIUM - SERUM 4.4 mmol/L (3.5-5.1)
[2020-03-12 07:00] LABS: PROTIME 18.3 SECONDS (11.6-15.0)
[2020-03-12 07:07] LABS: INR 1.53 (0.85-1.17)
--- NOTE | 2020-03-12 07:15 | NUR ---
RECEIVE SHIFT REPORT. RESTING IN BED WITH TV ON. ALERT AND ORIENTED. DENIES ANY NEEDS AT THIS TIME. WILL CONTINUE PLAN OF CARE AND SAFETY PRECAUTIONS.
[2020-03-12 08:00] VITALS: BP 153/91
[2020-03-12 12:00] VITALS: BP 130/92
--- NOTE | 2020-03-12 19:20 | NUR ---
PT IN SOME PAIN X4 SITE TO ABD ARE DRY AND INTACT PT EXPRESSES A FEW NEEDS THAT ARE SEEN TO AT THIS TIME CALL LIGHT ALL SO GIVEN TO PT
[2020-03-12 20:45] VITALS: BP 128/89
[2020-03-13 01:40] VITALS: BP 119/89
--- NOTE | 2020-03-13 04:37 | NUR ---
IV IS INFILTRATED REMOVED CATH INTACT PT SAYS NO TO RESTARTING AT THIS TIME
[2020-03-13 05:45] LABS: BASOPHILS 0.1 % (0-2); EOSINOPHILS 0 % (0-7); HEMATOCRIT 41.1 % (42.0-54.0); IMMATURE GRANULOCYTES 0.3 % (0-5); LYMPHOCYTES 5.2 % (15-50); MCHC 31.6 g/dL (31.0-37.0); MCV 85.3 fL (80.0-100.0); MONOCYTES 5.7 % (2-11); NEUTROPHILS 88.7 % (40-80); PLATELET COUNT 291 10x3/uL (130-400); RBC 4.82 10x6/uL (4.20-6.10); RDW 19.4 % (11.5-14.5)
[2020-03-13 05:56] LABS: WBC 10.1 10x3/uL (4.8-10.8)
--- NOTE | 2020-03-13 05:58 | NUR ---
I have reviewed this patient and I concur with the Shift Assessment completed by the Licensed Practical Nurse today this shift.
[2020-03-13 06:09] LABS: ANION GAP 9.7 mmol/L (8-16); CALCIUM 8.1 mg/dL (8.5-10.1); CARBON DIOXIDE 26.6 mmol/L (21.0-32.0); CREATININE - SERUM 1.3 mg/dL (0.6-1.3); MAGNESIUM - SERUM 1.5 mg/dL (1.8-2.4); PHOSPHOROUS 2.6 mg/dL (2.5-4.9); POTASSIUM - SERUM 4.3 mmol/L (3.5-5.1)
--- NOTE | 2020-03-13 06:12 | NUR ---
CONTINUES TO REFUSE IV
[2020-03-13 06:35] LABS: INR 1.34 (0.85-1.17); PROTIME 16.4 SECONDS (11.6-15.0)
[2020-03-13 07:06] VITALS: BP 119/87
--- NOTE | 2020-03-13 07:47 | NUR ---
PT AWAKE AND ORIENTED, ASKS MULTIPLE QUESTIONS ABOUT WHAT MEDS HE SHOULD AN DHSOULND'T TAKE, REQUESTS P.O. PAIN MEDICATIONS D/T HIS REFUSAL TO HAVE AN I/V RESTARTED. WILL INFORM TECHNICAL EXPERTOsiris BABB IN REACH, SRX2.
[2020-03-13 08:00] VITALS: BP 145/93
--- NOTE | 2020-03-13 08:51 | NUR ---
CALLED TO ROOM TO TALK TO PATIENT WITH HIM STATING HE IS NOT GETTING HIS PAIN MEDICATONS OR REFLUS MEDICATION. ELDA, HIS PRIMARY NURSE HAS PULLED HIS NORCO FOR HIM THIS AM AND THE REFLUX MEDICATON IS IV, NO IV ACCESS WHICH HE HAS REFUSED TO BE STUCK AGAIN. I REVIEWED HIS CHART OF MEDICATIONS WITH HIM AND HE HAS BEEN REFUSING HIS MYLANTA AND CARAFATE. WHEN ASKED WHY, HE STATES THAT HE THROWS THEM UP. I GAVE HIM THE NORCO FOR PAIN 05/06 AND CHANGED THE PROTONIX TO ORAL. 1256-COMPLAINTS OF PAIN AGAIN, ENCOURARGED HIM TO WALK TO PASS THE GAS. ORCO GIVEN FOR PAIN 11/04.
[2020-03-13] MEDS ORDERED: LOVENOX40 MG/0.4 SC (09:44)
[2020-03-13] MEDS ORDERED: HYDROCODON-ACE1 EAC7 PO (09:45)
[2020-03-13] MEDS ORDERED: LISINOPRIL5 MG PO (09:45)
[2020-03-13] MEDS ORDERED: CARAFATE1 G PO (09:50)
[2020-03-13] MEDS ORDERED: PROTONIX40 MG PO (09:50)
--- NOTE | 2020-03-13 13:32 | MORECARE ---
CASE MANAGEMENT DISCHARGE SUMMARY PATIENT: GABE RICHMOND UNIT: [id number] ADM DATE: 03/09/20 AGE: 64 : 53 SEX: M ROOM/BED: D.2111 AUTHOR: LILY YOUSIF PHYSICIAN: REFERRING PHYSICIAN: BRENNA JAMISON DO DATE OF SERVICE: 03/13/20 Discharge Plan Patient Name: GABE RICHMOND [facility] [facility] 1955 Planned Disposition: Home Anticipated Discharge Date: 03/13/20 Discharge Date: Expected LOS: 4 Initial Reviewer: [email or web address] Initial Review Date: 03/08/2020 Generated: 03/13/20 2:31 pm Coverage Notice Reviewer: [email or web address] - Chantelle Zamora Notice Issued Date-Time: 03/09/2020 14:54 Notice Type: Medicare Outpatient Observation Notice Notice Delivered To: Patient Relationship to Patient: Self Forensic Scientist Name: Gabe Richmond Delivery Method: HAND - Hand Delivered Blanca Days: Prior Verbal Notification: Recipient Understood Notice: Yes Recipient Signature: Yes Med Rec Note Co-signed by Attending: Coverage Notice Comment: CASTANON signed/given to patient. Original to chair. Patient Name: GABE RICHMOND Page [phone] at 1332 All edits/amendments must be made on the electronic document DICTATION DATE: 03/13/20 1332 MORPHOLOGIST: BRADY 03/13/20 1332 RPT#: [id number] DC DATE: STATUS: ADM IN [place] [address] [place] [address] END OF REPORT
--- NOTE | 2020-03-13 13:55 | MORECARE ---
CASE MANAGEMENT DISCHARGE SUMMARY PATIENT: GABE RICHMOND UNIT: [id number] ADM DATE: 03/09/20 AGE: 64 : 54 SEX: M ROOM/BED: D.2111 AUTHOR: BENJA,DOC PHYSICIAN: REFERRING PHYSICIAN: BRENNA JAMISON DO DATE OF SERVICE: 03/13/20 Discharge Plan Patient Name: GABE RICHMOND Facility: [facility]:[place] : 1955 Planned Disposition: Home Anticipated Discharge Date: 03/13/20 Discharge Date: Expected LOS: 4 Initial Reviewer: [id number] Initial Review Date: 03/08/2020 Generated: 03/13/20 2:55 pm DCP- Discharge Planning Updated by [id number]: Chantelle Zamora on 03/13/20 12:[address] CM contacted Cameron, pharmacist for [facility], to provide prescription for Lovenox 40 mg SQ QD X5 days and to verify that they have it in stock. Cameron verifies the medication is available. CM met with patient to discuss initial discharge planning. Patient is in agreement to proceed with the assessment. Patient reports that he lives at home independently with friends. Patient is alert/oriented. PCP: Dr. Dougherty. Pharmacy: [facility]. Patient states he has been able to obtain all of his prescribed medications. HHS: Refuses, states "I'm very private, I don't want them to be going through my house". Declination signed by patient. DME: None. Emergency contact: Karel Caldwell (brother) [phone]. 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 CM discussed the availability of HH, Rehab, SNF, OP Therapy, DME services. Patient denies the need for additional services at this time and feels safe returning to previous environment. Patient denies hospitalization within the past 30 days. 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 Transportation at time of discharge: Friends. Coverage Notice Reviewer: [id number] - Chantelle Zamora Notice Issued Date-Time: 03/09/2020 14:54 Notice Type: Medicare Outpatient Observation Notice Notice Delivered To: Patient Relationship to Patient: Self Clinical Assistant Professor Name: Gabe Richmond Delivery Method: HAND - Hand Delivered Blanca Days: Prior Verbal Notification: Recipient Understood Notice: Yes Recipient Signature: Yes Med Rec Note Co-signed by Attending: Coverage Notice Comment: CASTANON signed/given to patient. Original to chair. Reviewer: [email or web address] Shobha Zamora Notice Issued Date-Time: 03/13/2020 13:49 Notice Type: IM Discharge Notice Notice Delivered To: Patient Relationship to Patient: Self Clinical Assistant Professor Name: Gabe Richmond Delivery Method: HAND - Hand Delivered Blanca Days: Prior Verbal Notification: Recipient Understood Notice: Yes Recipient Signature: Yes Med Rec Note Co-signed by Attending: Coverage Notice Comment: DC IMM signed by/given to patient. riginal to chart. Last DP export: 03/13/20 12:32 p Patient Name: GABE RICHMOND Page [phone] at 1355 All edits/amendments must be made on the electronic document DICTATION DATE: 03/13/20 1355 INVESTMENT ACCOUNTANT: BRADY 03/13/20 1355 RPT#: [id number] DC DATE: STATUS: ADM IN [facility] [address] [place] [address] END OF REPORT
--- NOTE | 2020-03-13 14:53 | NUR ---
I CALLED WESLEY [facility] APN FOR OK TO D/C. FOLLOW UP NEEDED.
--- NOTE | 2020-03-13 15:54 | MORECARE ---
CASE MANAGEMENT DISCHARGE SUMMARY PATIENT: GABE RICHMOND UNIT: [id number] ADM DATE: 03/09/20 AGE: 64 : 53 SEX: M ROOM/BED: D.2111 AUTHOR: BENJA,DOC PHYSICIAN: REFERRING PHYSICIAN: BRENNA JAMISON DO DATE OF SERVICE: 03/13/20 Discharge Plan Patient Name: GABE RICHMOND Facility: [facility]:[place] : 1955 Planned Disposition: Home Anticipated Discharge Date: 03/13/20 Discharge Date: Expected LOS: 4 Initial Reviewer: [email or web address] Initial Review Date: 03/08/2020 Generated: 03/13/20 4:53 pm DCP- Discharge Planning Updated by [email or web address]: Chantelle Zamora on 03/13/20 12:[address] CM contacted Cameron, pharmacist for [facility], to provide prescription for Lovenox 40 mg SQ QD X5 days and to verify that they have it in stock. Cameron verifies the medication is available. CM met with patient to discuss initial discharge planning. Patient is in agreement to proceed with the assessment. Patient reports that he lives at home independently with friends. Patient is alert/oriented. PCP: Dr. Dougherty. Pharmacy: [facility]. Patient states he has been able to obtain all of his prescribed medications. HHS: Refuses, states "I'm very private, I don't want them to be going through my house". Declination signed by patient. DME: None. Emergency contact: Karel Caldwell (brother) [phone]. 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 CM discussed the availability of HH, Rehab, SNF, OP Therapy, DME services. Patient denies the need for additional services at this time and feels safe returning to previous environment. Patient denies hospitalization within the past 30 days. 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 Transportation at time of discharge: Friends. Coverage Notice Reviewer: [id number] - Chantelle Zamora Notice Issued Date-Time: 03/09/2020 14:54 Notice Type: Medicare Outpatient Observation Notice Notice Delivered To: Patient Relationship to Patient: Self Training Associate Name: Gabe Richmond Delivery Method: HAND - Hand Delivered Blanca Days: Prior Verbal Notification: Recipient Understood Notice: Yes Recipient Signature: Yes Med Rec Note Co-signed by Attending: Coverage Notice Comment: CASTANON signed/given to patient. Original to chair. Reviewer: [id number] Shobha Zamora Notice Issued Date-Time: 03/13/2020 13:49 Notice Type: IM Discharge Notice Notice Delivered To: Patient Relationship to Patient: Self Training Associate Name: Gabe Richmond Delivery Method: HAND - Hand Delivered Blanca Days: Prior Verbal Notification: Recipient Understood Notice: Yes Recipient Signature: Yes Med Rec Note Co-signed by Attending: Coverage Notice Comment: DC IMM signed by/given to patient. riginal to chart. Last DP export: 03/13/20 12:55 p Patient Name: GABE RICHMOND Page [phone] at 1554 All edits/amendments must be made on the electronic document DICTATION DATE: 03/13/201552 DRAWER IN PLAIN LOOM: BRADY 03/13/20 155 RPT#: [id number] DC DATE: STATUS: ADM IN [facility] [address] [place] [address] END OF REPORT
--- NOTE | 2020-03-13 16:52 | NUR ---
PT ESCORTED OUT VIA WHEELCHAIR TO POV, FRIEND DRIVING.
== END 2020-03-13 16:53 | disposition home or self-care (01) | DRG 418 ==
LOC: D.ER 15:40 → D.M2 22:33 → OBSVTIME 22:33 → D.M2 22:33
PROVIDERS: Emergency Medicine; Family Medicine; Surgery; ADMIT Family Medicine; ATTEND Family Medicine
PROC: 0FB04ZX Excision of Liver, Percutaneous Endoscopic Approach, Diagnostic (ICD-10-PCS; 2020-03-12)
PROC: BF101ZZ Fluoroscopy of Bile Ducts using Low Osmolar Contrast (ICD-10-PCS; 2020-03-12)
PROC: 0FT44ZZ Resection of Gallbladder, Percutaneous Endoscopic Approach (ICD-10-PCS; principal; 2020-03-12 08:00)
DX: K80.00 Calculus of gallbladder with acute cholecystitis without obstruction (principal); Q60.0 Renal agenesis, unilateral; K21.0 Gastro-esophageal reflux disease with esophagitis; E78.5 Hyperlipidemia, unspecified; D64.9 Anemia, unspecified; I12.9 Hypertensive chronic kidney disease with stage 1 through stage 4 chronic kidney disease, or unspecified chronic kidney disease; N18.9 Chronic kidney disease, unspecified; Z86.718 Personal history of other venous thrombosis and embolism; Z79.01 Long term (current) use of anticoagulants; Z86.711 Personal history of pulmonary embolism; R94.5 Abnormal results of liver function studies